=== PATIENT | male | born 1960 | race Caucasian/White ===

== ENCOUNTER 2017-09-20 15:44 | Inpatient (IN) ==
[2017-09-20] MEDS ORDERED: Naloxone 0.4 MG/ML INJ IVP PRN (20:37)
[2017-09-20] MEDS ORDERED: Ondansetron 4 MG/2 ML VIAL IVP PRN (20:46)
[2017-09-20] MEDS ORDERED: Acetaminophen 325 MG TABLET PO PRN (20:46)
[2017-09-20] MEDS ORDERED: Ipratropium/Albuterol Neb 3 ML IH PRN (20:55)
[2017-09-20] MEDS: D5% in 0.45% NACL 1,000 ML IVC SCH (20:56)
[2017-09-20] MEDS: *HR* Morphine 2 MG/ML SYRINGE IVP PRN (20:57)
--- NOTE | 2017-09-20 21:00 | Internal Med History&Physical ---
Date of Encounter: 09/20/17 Time of Encounter: 20:58 Assessment and Plan (1) Abdominal visceral abscess Current visit: No Status: Acute 2 intra-abdominal abscesses, secondary to complicated sigmoid diverticulitis Nothing by mouth, IV fluids, morphine, Invanz IV Surgery consult and interventional radiology consult for possible draining We will try to contact [facility] to arrange a transfer if possible (called [facility], spoke WITH hOSPITALIST Dr Emery, awaiting call from surgeon Dr Dennis) Protonix 40 GI prophylaxis and subcutaneous heparin for DVT prophylaxis the patient will be admitted as inpatient, expected to stay more than 20 times. Full code. Time spent on this admission 40 minutes (2) Tobacco abuse Current visit: Yes Status: Acute Smoking cessation counseling, nicotine patch (3) Leukocytosis Current visit: Yes Status: Acute Qualifiers: Leukocytosis type: unspecified Qualified Code(s): D72.829 - Elevated white blood cell count, unspecified (4) Asthma Current visit: Yes Status: Acute duonebs as needed Qualifiers: Asthma severity: unspecified severity Asthma persistence: unspecified Asthma complication type: uncomplicated Qualified Code(s): J45.909 - Unspecified asthma, uncomplicated Internal Medicine - H&P: HPI Chief complaint: Abdominal pain Admitted From: Emergency Dept History of present illness: Mr. Giraldo is a 57 year old male with a past medical history of tobacco use, recently diagnosed with sigmoid diverticulitis at [facility], she was discharged on 2017 on ciprofloxacin and Flagyl. Unfortunately the patient did not get any better and went to [facility] ER where CT scan was performed showing two intra-abdominal abscesses, 1 next to the proximal sigmoid colon and the other one possibly in the appendix. White blood cell count is 13.7 platelets 453 glucose 109. Patient is complaining of right sided abdominal pain accompanied by nausea and 1 episode of watery diarrhea earlier today. Denies any fevers or other complaints. The patient is requesting to be transferred to [facility] hospital, but at the moment their beds are limited. Past Med Surg Social Fam HX - Past Medical History Medical history: asthma, COPD (non diagnosed), GERD, other (Tobacco use, asthma , right elbow tendinitis, GERD) Psychiatric history: no psych history - Past Surgical History Surgical History: no surgical history - Social History Smoking Status: Current every day smoker Packs per day: 1 pack per day Smokeless Tobacco Status: No Alcohol use: none Drug use: marijuana - Additional Family History Additional family history: Denies any family history Internal Medicine - H&P: Meds Claritin 10 mg PO DAILY 09/10/17 [History] Naproxen 500 mg PO BID 09/10/17 [History] Albuterol Sulfate [Ventolin Hfa] 2 puff IH Q6H 09/20/17 [History] Fluticasone/Salmeterol [Advair 250-50 Diskus] 1 each IH BID 09/20/17 [History] Levofloxacin [Levaquin] 750 mg PO DAILY 09/20/17 [History] Omeprazole 20 mg PO DAILY 09/20/17 [History] metroNIDAZOLE [Flagyl] 500 mg PO TID 09/20/17 [History] 3 Allergy/AdvReac Type Severity Reaction Status Date / Time No Known Allergies Allergy Verified 09/10/17 17:25 All Systems PM: A 10-system review of systems was performed and is negative for pertinent findings except as documented above in the HPI. Review of systems: Abdominal pain, other systems out of the 10 reviewed were negative - Constitutional Vitals: Temp Pulse Resp BP Pulse Ox 98.0 F 64 17 113/69 93 09/20/17 19:40 09/20/17 19:40 09/20/17 19:40 09/20/17 19:40 09/20/17 19:40 General appearance: Present: A&O X 3 - Head Head exam: Present: atraumatic, normocephalic - Eye Eye exam: Present: PERRL, conjuntiva pink, sclera anicteric Pupils: Present: PERRL - Neck Neck exam general surgery: Present: supple, trachea midline. Absent: lymphadenopathy - Respiratory Respiratory exam: Present: CTAB. Absent: accessory muscle use, rales, rhonchi, wheezes - Cardiovascular Cardiovascular exam: Present: RRR, +S1, +S2. Absent: diastolic murmur, gallop, rubs, systolic murmur - GI/Abdominal GI/Abdominal exam: Present: normal bowel sounds, rebound, soft. Absent: distended, tenderness, no peritoneal signs Additional comments: Right lower quadrant tenderness - Extremities Exam Extremities exam: Present: warm, radial pulses palpable and symmetrical. Absent : calf tenderness, cyanotic, pedal edema - Neurological Exam Neurological exam: Present: CN II-XII intact, oriented X3, no focal deficits. Absent: pronater drift, facial droop, speech deficit - Skin Skin exam: Present: dry, intact
[2017-09-20] MEDS: *HR* Heparin 5,000 UNIT/ML VIAL SQ SCH (22:09)
[2017-09-20] MEDS: Ertapenem 1,000 MG in Water for inj. (sterile) 20 ML 10 ML IVP SCH (22:09)
[2017-09-20] MEDS: Pantoprazole 40 MG VIAL IVP SCH (22:10)
[2017-09-21] MEDS: *HR* Morphine 2 MG/ML SYRINGE IVP PRN ×6 (01:34→21:09)
[2017-09-21] MEDS: D5% in 0.45% NACL 1,000 ML IVC SCH ×4 (02:56→22:46)
[2017-09-21] MEDS: *HR* Heparin 5,000 UNIT/ML VIAL SQ SCH ×2 (05:56→16:52)
[2017-09-21 06:50] LABS: Basophils # 0.1 K/mcL (0.0-0.2); Basophils % 0.4 %; Eosinophils # 0.5 K/mcL (0.0-0.6); Eosinophils % 3.8 %; Hematocrit 36.3 % (37.5-50.1); Hemoglobin 11.5 g/dL (12.9-16.9); Immature Granulocytes % 0.5 % (0-4); Lymphocytes # 2.1 K/mcL (0.6-4.6); Mean Corpuscular HGB Conc 31.7 g/dL (31.6-35.5); Mean Corpuscular Hemoglobin 28.2 pg (28.0-33.3); Mean Platelet Volume 9.2 fL (9.4-12.4); Monocytes # 1.4 K/mcL (0.0-1.3); Monocytes % 9.8 %; Neutrophils # 9.8 K/mcL (1.6-8.9); Platelet Count 461 K/mcL (140-400); Red Blood Count 4.08 M/mcL (4.19-5.50); Red Cell Distribution Width 14.1 % (11.5-14.5); Segmented Neutrophils % 70.5 %
[2017-09-21 07:13] LABS: BUN/Creatinine Ratio 11 (6-26); Blood Urea Nitrogen 10 mg/dL (6-20); Calcium 8.1 mg/dL (8.6-10.3); Carbon Dioxide 27 mEq/L (23-29); Chloride 106 mEq/L (98-107); Glucose 125 mg/dL (70-105); Osmolality,Calculated 287 (280-300); Potassium 4.2 mEq/L (3.5-5.1); Sodium 138 mEq/L (136-145); eGFR For African Americans > 60 (> 60); eGFR For Non-African Americans > 60 (> 60)
[2017-09-21] MEDS: Pantoprazole 40 MG VIAL IVP SCH (08:32)
[2017-09-21] MEDS: Nicotine 21 MG PATCH.TD24 TD SCH (08:33)
--- NOTE | 2017-09-21 12:00 | General Surgery Consult Note ---
<Marilin Bonner - Last Filed: 09/21/17 11:58> Date of Encounter: 09/21/17 Time of Encounter: 11:58 History of Present Illness Consult date: 09/21/17 Reason for consult: abdominal pain (RLQ) Requesting physician: Gregory Hernandez History of present illness: Mr. Giraldo is a 57 year old white male recently released from [facility] on 09/17/17 where he was treated for sigmoid diverticulitis with ciprofloxacin and flagyl and told he had an abscess in his abdomen. Past Med Surg Social Fam HX - Past Medical History Medical history: asthma, COPD (non diagnosed), GERD, other (Tobacco use, asthma , right elbow tendinitis, GERD) Psychiatric history: no psych history - Past Surgical History Surgical History: no surgical history - Social History Smoking Status: Current every day smoker Packs per day: 1 pack per day Smokeless Tobacco Status: No Alcohol use: none Drug use: marijuana Medications and Allergies Loratadine [Claritin] 10 mg PO DAILY 09/10/17 [History] Naproxen 500 mg PO BID 09/10/17 [History] Albuterol Sulfate [Ventolin Hfa] 2 puff IH Q6H PRN 09/20/17 [History] Fluticasone/Salmeterol [Advair 250-50 Diskus] 1 puff IH BID 09/20/17 [History] Levofloxacin [Levaquin] 750 mg PO DAILY 09/20/17 [History] Omeprazole 20 mg PO DAILY 09/20/17 [History] metroNIDAZOLE [Flagyl] 500 mg PO TID 09/20/17 [History] 3 Allergy/AdvReac Type Severity Reaction Status Date / Time No Known Allergies Allergy Verified 09/10/17 17:25 Review of Systems All systems PM: A 10-system review of systems was performed and is negative for pertinent findings except as documented above in the HPI. - Constitutional chills, other (no diaphoresis), no fever(s) - Gastrointestinal abdominal pain (RLQ), change in bowel habits (x2 weeks), diarrhea, no constipation, no nausea, no vomiting General Surgery Exam Initial Vital Signs Temp Pulse Resp BP Pulse Ox 97.5 F L 61 16 126/80 96 09/20/17 17:31 09/20/17 17:31 09/20/17 17:31 09/20/17 17:31 09/20/17 17:31 - General physical appearance well developed, well nourished, no distress - Eyes normal ocular movement - Neck no masses - Respiratory normal expansion, normal respiratory effort, clear to auscultation - Cardiovascular Cardiovascular exam: Present: RRR. Absent: murmurs - Abdomen Abdomen general surgery: Present: bowel sounds present Abdominal Tenderness: Present: RLQ - Neurologic Present: CN 2-12 grossly intact - Psychiatric Psychiatric general surgery: Present: A&Ox3, speech is normal, memory intact Exam Initial Vital Signs Temp Pulse Resp BP Pulse Ox 97.5 F L 61 16 126/80 96 09/20/17 17:31 09/20/17 17:31 09/20/17 17:31 09/20/17 17:31 09/20/17 17:31 Results - Labs 09/21/17 05:44 09/21/17 05:44 Abnormal lab results WBC 13.9 K/mcL (4.3-11.1) H 09/21/17 05:44 RBC 4.08 M/mcL (4.19-5.50) L 09/21/17 05:44 Hgb 11.5 g/dL (12.9-16.9) L D 09/21/17 05:44 Hct 36.3 % (37.5-50.1) L 09/21/17 05:44 Plt Count 461 K/mcL (140-400) H 09/21/17 05:44 MPV 9.2 fL (9.4-12.4) L 09/21/17 05:44 Neutrophils # 9.8 K/mcL (1.6-8.9) H 09/21/17 05:44 Monocytes # 1.4 K/mcL (0.0-1.3) H 09/21/17 05:44 Glucose 125 mg/dL (70-105) H 09/21/17 05:44 POC Glucose 135 (58-89) H 09/21/17 11:01 Calcium 8.1 mg/dL (8.6-10.3) L 09/21/17 05:44 Diabetes panel 09/21/17 Range/Units 05:44 Sodium 138 (136-145) mEq/L Potassium 4.2 (3.5-5.1) mEq/L Chloride 106 (98-107) mEq/L Carbon Dioxide 27 (23-29) mEq/L BUN 10 (6-20) mg/dL Creatinine 0.95 (0.70-1.30) mg/dL Glucose 125 H (70-105) mg/dL Calcium 8.1 L (8.6-10.3) mg/dL Calcium panel 09/21/17 Range/Units 05:44 Calcium 8.1 L (8.6-10.3) mg/dL Pituitary panel 09/21/17 Range/Units 05:44 Sodium 138 (136-145) mEq/L Potassium 4.2 (3.5-5.1) mEq/L Chloride 106 (98-107) mEq/L Carbon Dioxide 27 (23-29) mEq/L BUN 10 (6-20) mg/dL Creatinine 0.95 (0.70-1.30) mg/dL Glucose 125 H (70-105) mg/dL Calcium 8.1 L (8.6-10.3) mg/dL Adrenal panel 09/21/17 Range/Units 05:44 Sodium 138 (136-145) mEq/L Potassium 4.2 (3.5-5.1) mEq/L Chloride 106 (98-107) mEq/L Carbon Dioxide 27 (23-29) mEq/L BUN 10 (6-20) mg/dL Creatinine 0.95 (0.70-1.30) mg/dL Glucose 125 H (70-105) mg/dL Calcium 8.1 L (8.6-10.3) mg/dL All other labs normal. Consult Discharge Plan - Plan Referrals: Gisele Arreaga CNP [Primary Care Provider] - Annette Corral DO [Family Provider] - <Qamar Armstrong E - Last Filed: 09/21/17 19:09> Date of Encounter: 09/21/17 Assessment and Plan (1) Perforated diverticulum of large intestine Current Visit: Yes Status: Acute Patient failed outpatient oral antibiotic therapy after being hospitalized the previous week with IV antibiotics. Currently the patient's readmitted on IV antibiotics and seems be doing well. He has localized tenderness in right lower quadrant which is close to the interloop abscess. The abscess was not amenable to drainage. Therefore we will be conservative therapy in form of IV fluids, bowel rest, IV antibiotics. Once the patient has a normal abdominal exam will then begin diet. Likely no surgical intervention during this hospitalization. The patient may require an interval sigmoid resection. We will discuss this with him going forward prior to discharge and follow-up. (2) Abdominal visceral abscess Current Visit: Yes Status: Acute Review of Systems All systems PM: A 10-system review of systems was performed and is negative for pertinent findings except as documented above in the HPI. General Surgery Exam Initial Vital Signs Temp Pulse Resp BP Pulse Ox 97.5 F L 61 16 126/80 96 09/20/17 17:31 09/20/17 17:31 09/20/17 17:31 09/20/17 17:31 09/20/17 17:31 Exam Initial Vital Signs Temp Pulse Resp BP Pulse Ox 97.5 F L 61 16 126/80 96 09/20/17 17:31 09/20/17 17:31 09/20/17 17:31 09/20/17 17:31 09/20/17 17:31 Results - Labs 09/21/17 13:50 09/21/17 05:44 Abnormal lab results WBC 13.9 K/mcL (4.3-11.1) H 09/21/17 05:44 RBC 4.08 M/mcL (4.19-5.50) L 09/21/17 05:44 Hgb 11.6 g/dL (12.9-16.9) L 09/21/17 13:50 Hct 35.6 % (37.5-50.1) L 09/21/17 13:50 Plt Count 461 K/mcL (140-400) H 09/21/17 05:44 MPV 9.2 fL (9.4-12.4) L 09/21/17 05:44 Neutrophils # 9.8 K/mcL (1.6-8.9) H 09/21/17 05:44 Monocytes # 1.4 K/mcL (0.0-1.3) H 09/21/17 05:44 Glucose 125 mg/dL (70-105) H 09/21/17 05:44 POC Glucose 97 (58-89) H 09/21/17 16:35 Calcium 8.1 mg/dL (8.6-10.3) L 09/21/17 05:44 Diabetes panel 09/21/17 Range/Units 05:44 Sodium 138 (136-145) mEq/L Potassium 4.2 (3.5-5.1) mEq/L Chloride 106 (98-107) mEq/L Carbon Dioxide 27 (23-29) mEq/L BUN 10 (6-20) mg/dL Creatinine 0.95 (0.70-1.30) mg/dL Glucose 125 H (70-105) mg/dL Calcium 8.1 L (8.6-10.3) mg/dL Calcium panel 09/21/17 Range/Units 05:44 Calcium 8.1 L (8.6-10.3) mg/dL Pituitary panel 09/21/17 Range/Units 05:44 Sodium 138 (136-145) mEq/L Potassium 4.2 (3.5-5.1) mEq/L Chloride 106 (98-107) mEq/L Carbon Dioxide 27 (23-29) mEq/L BUN 10 (6-20) mg/dL Creatinine 0.95 (0.70-1.30) mg/dL Glucose 125 H (70-105) mg/dL Calcium 8.1 L (8.6-10.3) mg/dL Adrenal panel 09/21/17 Range/Units 05:44 Sodium 138 (136-145) mEq/L Potassium 4.2 (3.5-5.1) mEq/L Chloride 106 (98-107) mEq/L Carbon Dioxide 27 (23-29) mEq/L BUN 10 (6-20) mg/dL Creatinine 0.95 (0.70-1.30) mg/dL Glucose 125 H (70-105) mg/dL Calcium 8.1 L (8.6-10.3) mg/dL All other labs normal.
[2017-09-21 14:37] LABS: Hematocrit 35.6 % (37.5-50.1); Hemoglobin 11.6 g/dL (12.9-16.9)
--- NOTE | 2017-09-21 18:53 | Internal Med Progress Note ---
Date of Encounter: 09/21/17 Time of Encounter: 18:51 - Assessment and plan (1) Abdominal visceral abscess Current Visit: Yes Status: Acute Assessment and plan: Shows improvement with ertapenem. IR evaluated patient and there is too little of fluid to drain. Surgery consulted, recommendations appreciated. Pain currently controlled, continue IV fluids, NPO for now. (2) COPD (chronic obstructive pulmonary disease) Current Visit: Yes Status: Acute Qualifiers: COPD type: unspecified COPD Qualified Code(s): J44.9 - Chronic obstructive pulmonary disease, unspecified - Subjective Interval history: Patient feels better with antibiotics. Denies fevers chills. Pain is at a tolerable state. - Constitutional Vitals: Temp Pulse Resp BP Pulse Ox 99.0 F 93 16 130/76 91 09/21/17 13:57 09/21/17 13:57 09/21/17 13:57 09/21/17 13:57 09/21/17 13:57 General appearance: Present: A&O X 3 - Head Head exam: Present: atraumatic, normocephalic - Eye Eye exam: Present: PERRL, conjuntiva pink, sclera anicteric Pupils: Present: PERRL - Neck Neck exam general surgery: Present: supple, trachea midline. Absent: lymphadenopathy - Respiratory Respiratory exam: Present: CTAB. Absent: accessory muscle use, rales, rhonchi, wheezes - Cardiovascular Cardiovascular exam: Present: RRR, +S1, +S2. Absent: diastolic murmur, gallop, rubs, systolic murmur - GI/Abdominal GI/Abdominal exam: Present: normal bowel sounds, soft, tenderness, no peritoneal signs. Absent: distended - Extremities Exam Extremities exam: Present: warm, radial pulses palpable and symmetrical. Absent : calf tenderness, cyanotic, pedal edema - Neurological Exam Neurological exam: Present: CN II-XII intact, oriented X3, no focal deficits. Absent: pronater drift, facial droop, speech deficit - Skin Skin exam: Present: dry, intact Internal Medicine: Result - Labs CBC & Chem 7: 09/21/17 13:50 09/21/17 05:44 Labs: Short CBC 09/21/17 09/21/17 Range/Units 05:44 13:50 WBC 13.9 H (4.3-11.1) K/mcL Hgb 11.5 L D 11.6 L (12.9-16.9) g/dL Hct 36.3 L 35.6 L (37.5-50.1) % Plt Count 461 H (140-400) K/mcL Neutrophils # 9.8 H (1.6-8.9) K/mcL BMP 09/21/17 05:44 Sodium 138 Potassium 4.2 Chloride 106 Carbon Dioxide 27 BUN 10 Creatinine 0.95 Glucose 125 H Calcium 8.1 L Consult Discharge Plan - Plan Referrals: Gisele Arreaga, MARLEN [Primary Care Provider] - Annette Corral DO [Family Provider] -
[2017-09-21] MEDS: Ertapenem 1,000 MG in Water for inj. (sterile) 20 ML 10 ML IVP SCH (21:09)
[2017-09-22] MEDS: *HR* Morphine 2 MG/ML SYRINGE IVP PRN ×6 (01:18→22:33)
[2017-09-22 05:55] LABS: Basophils # 0.1 K/mcL (0.0-0.2); Basophils % 0.4 %; Eosinophils # 0.6 K/mcL (0.0-0.6); Eosinophils % 4.3 %; Hematocrit 35.3 % (37.5-50.1); Hemoglobin 11.3 g/dL (12.9-16.9); Immature Granulocytes % 0.5 % (0-4); Lymphocytes # 2.1 K/mcL (0.6-4.6); Lymphocytes % 15.2 %; Mean Corpuscular Hemoglobin 28.3 pg (28.0-33.3); Mean Corpuscular Volume 88.3 fL (83.0-100.0); Mean Platelet Volume 9.2 fL (9.4-12.4); Monocytes # 1.6 K/mcL (0.0-1.3); Monocytes % 11.8 %; Neutrophils # 9.2 K/mcL (1.6-8.9); Platelet Count 502 K/mcL (140-400); Red Cell Distribution Width 13.8 % (11.5-14.5); Segmented Neutrophils % 67.8 %
[2017-09-22] MEDS: *HR* Heparin 5,000 UNIT/ML VIAL SQ SCH ×2 (06:17→18:34)
[2017-09-22] MEDS: D5% in 0.45% NACL 1,000 ML IVC SCH ×4 (06:29→20:46)
--- NOTE | 2017-09-22 09:53 | General Surgery Progress Note ---
<Floyd Christian - Last Filed: 09/22/17 12:44> Date of Encounter: 09/22/17 Time of Encounter: 09:51 - Assessment and Plan (1) Perforated diverticulum of large intestine Current Visit: Yes Status: Acute Admit day 2. previously failed treatment with cipro and flagyl during admission at [facility] on 09/17/17. Patient is afebrile, and abdominal pain has improved since yesterday. WBC 13/9 -> 13.6 (today). clinically patient is improving. Will continue to closely monitor and consider draining abscess if patient declines. conservative management for now. - ct ertapenem (day 2) - ct pain management with Rx - serial abd exams - follow temp, WBc closely - npo (2) Tobacco abuse Current Visit: Yes Status: Acute recommended to patient smoking cessation. to be managed outpatient by PCP Subjective Patient reports: feels better, pain is less, flatus, no bowel movement Narrative: patient reports abd pain has decreased since yesterday, but remains 4/10 today. No events overnight, no new complaints. Objective Vital Signs - Last 8 Hours Temp Pulse Resp BP Pulse Ox 09/22/17 08:17 98.0 F 68 18 131/73 93 09/22/17 04:03 98.2 F 68 17 113/66 92 Intake and Output 09/21/17 09/22/17 09/22/17 23:59 07:59 15:59 Intake Total 900 / 900 1000 / 1000 0 / 0 Output Total 625 / 625 200 / 200 500 / 500 Balance 275 / 275 800 / 800 -500 / -500 Intake: IV Fluids 900 / 900 1000 / 1000 D5% And 0.45% Nacl 1000 Ml Bag 900 / 900 1000 / 1000 1,000 ML @ 175 mls/hr IVC . Q5H43M [facility] Rx#:[id number] Oral 0 / 0 0 / 0 Output: Urine 625 / 625 200 / 200 500 / 500 Other: Meal NPO Percent of Meal Consumed 0% Weight 75.8 kg Blood Glucose* 97 119 Patient Weight 09/22/17 23:59 Weight 75.8 kg - General physical appearance moderate distress, moderate pain - Eyes normal ocular movement - ENT normal mucosa, no hearing loss, no congestion - Neck Neck exam: no masses, no venous distension - Respiratory normal expansion, normal respiratory effort wheezing: bilateral (expiratory wheezing diffusely) - Cardiovascular Cardiovascular exam: Present: RRR - Abdomen Abdomen: Present: bowel sounds present, soft, tender - Integumentary no rash, no growths, no abnormal pigmentation - Neurologic normal sensation - Psychiatric oriented to time, oriented to person, oriented to place, speech is normal, memory intact - Labs 09/22/17 05:12 09/21/17 05:44 Consult Discharge Plan - Plan Referrals: Gisele Arreaga, MARLEN [Primary Care Provider] - Annette Corral DO [Family Provider] - <Jarad Cullen - Last Filed: 09/23/17 10:18> Date of Encounter: 09/22/17 Objective Vital Signs - Last 8 Hours Temp Pulse Resp BP Pulse Ox 09/23/17 06:44 97.9 F 69 18 121/77 93 09/23/17 05:14 98.1 F 67 16 120/73 94 Intake and Output 09/22/17 09/23/17 09/23/17 23:59 07:59 15:59 Intake Total 1000 / 1000 1000 / 1000 Output Total 650 / 650 1175 / 1175 Balance 350 / 350 -175 / -175 Intake: IV Fluids 1000 / 1000 1000 / 1000 D5% And 0.45% Nacl 1000 Ml Bag 1000 / 1000 1000 / 1000 1,000 ML @ 175 mls/hr IVC . Q5H43M [facility] Rx#:[id number] Oral 0 / 0 0 / 0 Output: Urine 650 / 650 1175 / 1175 Other: Meal NPO Dinner Weight 75.8 kg Blood Glucose* 119 101 Patient Weight 09/23/17 23:59 Weight 75.8 kg - Labs 09/22/17 05:12 09/21/17 05:44 - Attending Attestation I examined this patient and my medical decision-making was reviewed with the Resident Physician. I agree with the documented findings, disposition and treatment plan as described except to the extent set forth below. The patient was seen and evaluated on morning rounds. His white blood cell count is just over 13,000. He still complains of abdominal pain unchanged from previous. On physical examination there is evidence of involuntary guarding but no rebound as well as diffuse tenderness. We will continue to follow him clinically. If he does not improve he may require repeat CAT scan tomorrow. Jarad Cullen MD FACS
[2017-09-22] MEDS: Nicotine 21 MG PATCH.TD24 TD SCH (10:27)
[2017-09-22] MEDS: Pantoprazole 40 MG VIAL IVP SCH (10:27)
--- NOTE | 2017-09-22 17:25 | Internal Med Progress Note ---
Date of Encounter: 09/22/17 Time of Encounter: 17:23 - Assessment and plan (1) Abdominal visceral abscess Current Visit: Yes Status: Acute Assessment and plan: Shows improvement with ertapenem. IR evaluated patient and there is too little of fluid to drain. Surgery consulted, recommendations appreciated. Pain currently controlled, continue IV fluids, NPO for now. (2) COPD (chronic obstructive pulmonary disease) Current Visit: Yes Status: Acute Qualifiers: COPD type: unspecified COPD Qualified Code(s): J44.9 - Chronic obstructive pulmonary disease, unspecified - Subjective Interval history: at bedside. Patient feels better with antibiotics. Denies fevers chills. - Constitutional Vitals: Temp Pulse Resp BP Pulse Ox 97.8 F 65 18 117/71 94 09/22/17 12:10 09/22/17 12:10 09/22/17 12:10 09/22/17 12:10 09/22/17 12:10 General appearance: Present: A&O X 3 - Head Head exam: Present: atraumatic, normocephalic - Eye Eye exam: Present: PERRL, conjuntiva pink, sclera anicteric Pupils: Present: PERRL - Neck Neck exam general surgery: Present: supple, trachea midline. Absent: lymphadenopathy - Respiratory Respiratory exam: Present: CTAB. Absent: accessory muscle use, rales, rhonchi, wheezes - Cardiovascular Cardiovascular exam: Present: RRR, +S1, +S2. Absent: diastolic murmur, gallop, rubs, systolic murmur - GI/Abdominal GI/Abdominal exam: Present: normal bowel sounds, soft, tenderness, no peritoneal signs. Absent: distended - Extremities Exam Extremities exam: Present: warm, radial pulses palpable and symmetrical. Absent : calf tenderness, cyanotic, pedal edema - Neurological Exam Neurological exam: Present: CN II-XII intact, oriented X3, no focal deficits. Absent: pronater drift, facial droop, speech deficit - Skin Skin exam: Present: dry, intact Internal Medicine: Result - Labs CBC & Chem 7: 09/22/17 05:12 09/21/17 05:44 Labs: Short CBC 09/22/17 Range/Units 05:12 WBC 13.6 H (4.3-11.1) K/mcL Hgb 11.3 L (12.9-16.9) g/dL Hct 35.3 L (37.5-50.1) % Plt Count 502 H (140-400) K/mcL Neutrophils # 9.2 H (1.6-8.9) K/mcL Consult Discharge Plan - Plan Referrals: Gisele Arreaga, MARLEN [Primary Care Provider] - Annette Corral DO [Family Provider] -
[2017-09-22] MEDS: Ertapenem 1,000 MG in Water for inj. (sterile) 20 ML 10 ML IVP SCH (20:47)
[2017-09-23] MEDS: D5% in 0.45% NACL 1,000 ML IVC SCH (02:16)
[2017-09-23] MEDS: *HR* Morphine 2 MG/ML SYRINGE IVP PRN ×5 (02:21→21:40)
[2017-09-23] MEDS: *HR* Heparin 5,000 UNIT/ML VIAL SQ SCH ×2 (06:01→17:12)
[2017-09-23 10:43] LABS: Basophils # 0.1 K/mcL (0.0-0.2); Basophils % 0.5 %; Eosinophils # 0.5 K/mcL (0.0-0.6); Eosinophils % 4.1 %; Immature Granulocytes % 0.5 % (0-4); Lymphocytes # 2.1 K/mcL (0.6-4.6); Mean Corpuscular HGB Conc 32.4 g/dL (31.6-35.5); Mean Corpuscular Hemoglobin 28.3 pg (28.0-33.3); Mean Corpuscular Volume 87.3 fL (83.0-100.0); Mean Platelet Volume 8.9 fL (9.4-12.4); Monocytes # 1.5 K/mcL (0.0-1.3); Monocytes % 12.2 %; Neutrophils # 7.9 K/mcL (1.6-8.9); Platelet Count 582 K/mcL (140-400); Red Blood Count 4.24 M/mcL (4.19-5.50); Red Cell Distribution Width 13.6 % (11.5-14.5); Segmented Neutrophils % 65.7 %
[2017-09-23 11:08] LABS: BUN/Creatinine Ratio 8 (6-26); Blood Urea Nitrogen 7 mg/dL (6-20); Calcium 8.6 mg/dL (8.6-10.3); Carbon Dioxide 25 mEq/L (23-29); Chloride 104 mEq/L (98-107); Glucose 105 mg/dL (70-105); Osmolality,Calculated 280 (280-300); Potassium 3.5 mEq/L (3.5-5.1); Sodium 136 mEq/L (136-145); eGFR For African Americans > 60 (> 60); eGFR For Non-African Americans > 60 (> 60)
[2017-09-23] MEDS: Pantoprazole 40 MG VIAL IVP SCH (11:19)
[2017-09-23] MEDS: Nicotine 21 MG PATCH.TD24 TD SCH (11:19)
--- NOTE | 2017-09-23 15:07 | General Surgery Progress Note ---
<Anay Dixon - Last Filed: 09/23/17 15:05> Date of Encounter: 09/23/17 Time of Encounter: 07:00 - Assessment and Plan (1) Perforated diverticulum of large intestine Current Visit: Yes Status: Acute The patient failed treatment for sigmoid diverticulitis with cipro and flagyl during admission at [facility] on 09/17/[address] [facility] after worsening at home. hemodynamically stable, afebrile, WBC 12.1 improving Abdominal exam improved from yesterday. label fuser tender but no guarding or rebound repeat CT abd ordered to f/u on improvement continue ertapenem day 3 continue pain management serial abdominal exams npo (2) Tobacco abuse Current Visit: Yes Status: Acute patient counseled on smoking cessation Subjective Patient reports: no new complaints, feels better Narrative: no new complaints. Reports improvement of abdominal pain. Objective Vital Signs - Last 8 Hours Temp Pulse Resp BP Pulse Ox 09/23/17 10:37 97.7 F 72 18 134/76 96 Intake and Output 09/22/17 09/23/17 09/23/17 23:59 07:59 15:59 Intake Total 1000 / 1000 1000 / 1000 Output Total 650 / 650 1175 / 1175 300 / 300 Balance 350 / 350 -175 / -175 -300 / -300 Intake: IV Fluids 1000 / 1000 1000 / 1000 D5% And 0.45% Nacl 1000 Ml Bag 1000 / 1000 1000 / 1000 1,000 ML @ 175 mls/hr IVC . Q5H43M [facility] Rx#:[id number] Oral 0 / 0 0 / 0 Output: Urine 650 / 650 1175 / 1175 300 / 300 Other: Meal NPO Dinner Weight 75.8 kg Blood Glucose* 119 101 Patient Weight 09/23/17 23:59 Weight 75.8 kg - General physical appearance well developed, well nourished, no distress - Eyes normal ocular movement - ENT normal nares - Respiratory normal expansion, normal respiratory effort, clear to auscultation - Cardiovascular Cardiovascular exam: Present: RRR - Abdomen Abdomen: Present: bowel sounds present, soft, tender. Absent: guarding, rebound - Integumentary no abnormal pigmentation - Neurologic CN 2-12 grossly intact - Psychiatric oriented to time, oriented to person, oriented to place - Labs 09/23/17 10:14 09/23/17 10:14 Diabetes panel 09/23/17 Range/Units 10:14 Sodium 136 (136-145) mEq/L Potassium 3.5 (3.5-5.1) mEq/L Chloride 104 (98-107) mEq/L Carbon Dioxide 25 (23-29) mEq/L BUN 7 (6-20) mg/dL Creatinine 0.91 (0.70-1.30) mg/dL Glucose 105 (70-105) mg/dL Calcium 8.6 (8.6-10.3) mg/dL Calcium panel 09/23/17 Range/Units 10:14 Calcium 8.6 (8.6-10.3) mg/dL Pituitary panel 09/23/17 Range/Units 10:14 Sodium 136 (136-145) mEq/L Potassium 3.5 (3.5-5.1) mEq/L Chloride 104 (98-107) mEq/L Carbon Dioxide 25 (23-29) mEq/L BUN 7 (6-20) mg/dL Creatinine 0.91 (0.70-1.30) mg/dL Glucose 105 (70-105) mg/dL Calcium 8.6 (8.6-10.3) mg/dL Adrenal panel 09/23/17 Range/Units 10:14 Sodium 136 (136-145) mEq/L Potassium 3.5 (3.5-5.1) mEq/L Chloride 104 (98-107) mEq/L Carbon Dioxide 25 (23-29) mEq/L BUN 7 (6-20) mg/dL Creatinine 0.91 (0.70-1.30) mg/dL Glucose 105 (70-105) mg/dL Calcium 8.6 (8.6-10.3) mg/dL Consult Discharge Plan - Plan Referrals: Gisele Arreaga, MARLEN [Primary Care Provider] - Annette Corral DO [Family Provider] - <Jarad Cullen - Last Filed: 09/23/17 17:59> Date of Encounter: 09/23/17 Objective Vital Signs - Last 8 Hours Temp Pulse Resp BP Pulse Ox 09/23/17 16:35 98.0 F 83 18 143/80 92 09/23/17 10:37 97.7 F 72 18 134/76 96 Intake and Output 09/23/17 09/23/17 09/23/17 07:59 15:59 23:59 Intake Total 1000 / 1000 0 / 0 Output Total 1175 / 1175 300 / 300 500 / 500 Balance -175 / -175 -300 / -300 -500 / -500 Intake: IV Fluids 1000 / 1000 D5% And 0.45% Nacl 1000 Ml Bag 1000 / 1000 1,000 ML @ 175 mls/hr IVC . Q5H43M [facility] Rx#:[id number] Oral 0 / 0 0 / 0 Output: Urine 1175 / 1175 300 / 300 500 / 500 Other: Weight 75.8 kg Blood Glucose* 101 84 Patient Weight 09/23/17 23:59 Weight 75.8 kg - Labs 09/23/17 10:14 09/23/17 10:14 Diabetes panel 09/23/17 Range/Units 10:14 Sodium 136 (136-145) mEq/L Potassium 3.5 (3.5-5.1) mEq/L Chloride 104 (98-107) mEq/L Carbon Dioxide 25 (23-29) mEq/L BUN 7 (6-20) mg/dL Creatinine 0.91 (0.70-1.30) mg/dL Glucose 105 (70-105) mg/dL Calcium 8.6 (8.6-10.3) mg/dL Calcium panel 09/23/17 Range/Units 10:14 Calcium 8.6 (8.6-10.3) mg/dL Pituitary panel 09/23/17 Range/Units 10:14 Sodium 136 (136-145) mEq/L Potassium 3.5 (3.5-5.1) mEq/L Chloride 104 (98-107) mEq/L Carbon Dioxide 25 (23-29) mEq/L BUN 7 (6-20) mg/dL Creatinine 0.91 (0.70-1.30) mg/dL Glucose 105 (70-105) mg/dL Calcium 8.6 (8.6-10.3) mg/dL Adrenal panel 09/23/17 Range/Units 10:14 Sodium 136 (136-145) mEq/L Potassium 3.5 (3.5-5.1) mEq/L Chloride 104 (98-107) mEq/L Carbon Dioxide 25 (23-29) mEq/L BUN 7 (6-20) mg/dL Creatinine 0.91 (0.70-1.30) mg/dL Glucose 105 (70-105) mg/dL Calcium 8.6 (8.6-10.3) mg/dL - Attending Attestation I examined this patient and my medical decision-making was reviewed with the Resident Physician. I agree with the documented findings, disposition and treatment plan as described except to the extent set forth below. The patient is seen in evaluated with resident on morning rounds. He appears to have persistent abdominal pain. I would expect that this should have improved by now in his overall clinical course. I would like to repeat his CAT scan to see if a discrete abscess has developed. We will plan CAT scan of the abdomen and pelvis with GI contrast and IV contrast later today Jarad Cullen MD FACS
--- NOTE | 2017-09-23 16:08 | Internal Med Progress Note ---
Date of Encounter: 09/23/17 Time of Encounter: 16:06 - Assessment and plan (1) Abdominal visceral abscess Current Visit: Yes Status: Acute Assessment and plan: Started on ertapenem on admission. IR evaluated patient and there is too little of fluid to drain. Surgery consulted, recommendations appreciated. Pain currently controlled, continue IV fluids, NPO. Discussed case with Dr. Dixon, a repeat CT of abdomen and pelvis will be ordered to monitor for improvement. Continue supportive care. (2) COPD (chronic obstructive pulmonary disease) Current Visit: Yes Status: Acute Qualifiers: COPD type: unspecified COPD Qualified Code(s): J44.9 - Chronic obstructive pulmonary disease, unspecified - Subjective Interval history: No complaints, no acute events. Denies abdominal pain at rest, fevers/chills, n /v, diaphoresis. - Constitutional Vitals: Temp Pulse Resp BP Pulse Ox 97.7 F 72 18 134/76 96 09/23/17 10:37 09/23/17 10:37 09/23/17 10:37 09/23/17 10:37 09/23/17 10:37 Exam: Gen: NAD, AAOx3 CVS: RRR Lungs: CTAB Abdomen: soft, +TTP periumbilical region, no rebound tenderness, no guarding, non-distended, normal bowel sounds. Ext: no edema, no cyanosis. Internal Medicine: Result - Labs CBC & Chem 7: 09/23/17 10:14 09/23/17 10:14 Labs: Short CBC 09/23/17 Range/Units 10:14 WBC 12.1 H (4.3-11.1) K/mcL Hgb 12.0 L (12.9-16.9) g/dL Hct 37.0 L (37.5-50.1) % Plt Count 582 H (140-400) K/mcL Neutrophils # 7.9 (1.6-8.9) K/mcL BMP 09/23/17 10:14 Sodium 136 Potassium 3.5 Chloride 104 Carbon Dioxide 25 BUN 7 Creatinine 0.91 Glucose 105 Calcium 8.6 Consult Discharge Plan - Plan Referrals: Gisele Arreaga, MARLEN [Primary Care Provider] - Annette Corral DO [Family Provider] -
[2017-09-23] MEDS: Ertapenem 1,000 MG in Water for inj. (sterile) 20 ML 10 ML IVP SCH (21:28)
[2017-09-24] MEDS: *HR* Morphine 2 MG/ML SYRINGE IVP PRN ×5 (04:03→23:10)
[2017-09-24 04:51] LABS: Basophils # 0.1 K/mcL (0.0-0.2); Basophils % 0.4 %; Eosinophils # 0.4 K/mcL (0.0-0.6); Hematocrit 36.4 % (37.5-50.1); Hemoglobin 11.7 g/dL (12.9-16.9); Immature Granulocytes % 0.7 % (0-4); Lymphocytes # 1.8 K/mcL (0.6-4.6); Lymphocytes % 12.9 %; Mean Corpuscular HGB Conc 32.1 g/dL (31.6-35.5); Mean Corpuscular Hemoglobin 27.9 pg (28.0-33.3); Mean Corpuscular Volume 86.7 fL (83.0-100.0); Mean Platelet Volume 8.8 fL (9.4-12.4); Monocytes # 1.8 K/mcL (0.0-1.3); Monocytes % 12.6 %; Neutrophils # 9.7 K/mcL (1.6-8.9); Platelet Count 665 K/mcL (140-400); Red Cell Distribution Width 13.5 % (11.5-14.5); Segmented Neutrophils % 70.4 %
[2017-09-24 05:04] LABS: BUN/Creatinine Ratio 9 (6-26); Blood Urea Nitrogen 9 mg/dL (6-20); Calcium 8.5 mg/dL (8.6-10.3); Carbon Dioxide 25 mEq/L (23-29); Chloride 102 mEq/L (98-107); Glucose 72 mg/dL (70-105); Osmolality,Calculated 277 (280-300); Potassium 3.5 mEq/L (3.5-5.1); Sodium 135 mEq/L (136-145); eGFR For African Americans > 60 (> 60); eGFR For Non-African Americans > 60 (> 60)
[2017-09-24] MEDS: *HR* Heparin 5,000 UNIT/ML VIAL SQ SCH ×2 (05:38→19:45)
[2017-09-24] MEDS: Pantoprazole 40 MG VIAL IVP SCH (09:10)
[2017-09-24] MEDS: Nicotine 21 MG PATCH.TD24 TD SCH (09:12)
[2017-09-24] MEDS ORDERED: Vancomycin 1,250 MG in D5% in Water 250 ML IVPB SCH (10:00)
--- NOTE | 2017-09-24 11:17 | General Surgery Progress Note ---
Date of Encounter: 09/24/17 Time of Encounter: 10:45 - Assessment and Plan (1) Perforated diverticulum of large intestine Current Visit: Yes Status: Acute Patient with significant clinical improvement Clear liquid diet today IV fluids- decreased to 75ml/hour IV antibiotics-Ertapenem and Vancomycin (per hospitalist) Supportive care and pain control Increase activities as tolerated IS every 1 hour while awake PPI therapy daily Surgery will continue to follow and assess progress No urgent surgical intervention at this time, will continue with conservative measures as long as the patient is improving Repeat am labs CT complete 09/23/17 shows multiple small abscess collections not amenable to drainage (decreasing in size); RLL consolidation concerning for pneumonia (2) DVT prophylaxis Current Visit: Yes Status: Acute Heparin 5,000 units SQ twice daily for DVT prophylaxis Activity- ambulate hallways TID with assistance Subjective Patient reports: no new complaints, feels better, still having pain, pain is less, voiding w/o difficulty, flatus, bowel movement, diarrhea, afebrile Objective Vital Signs - Last 8 Hours Temp Pulse Resp BP Pulse Ox 09/24/17 09:18 92 09/24/17 04:49 98.7 F 76 14 115/72 92 Intake and Output 09/23/17 09/24/17 09/24/17 23:59 07:59 15:59 Intake Total 1000 / 1000 0 / 0 Output Total 725 / 725 650 / 650 Balance -715 / -715 350 / 350 0 / 0 Intake: IV Fluids 1000 / 1000 0.45% Sodium Chloride 1000 Ml 1000 / 1000 1000 Ml 1,000 ML @ 110 mls/hr IVC .Q9H6M [facility] Rx#:[id number] INVanz 1,000 MG In Water for inj. (sterile) 10 ML @ 200 mls/ hr IVP HS [facility] Rx#:[id number] Oral 0 / 0 0 / 0 0 / 0 Output: Urine 725 / 725 650 / 650 Other: Meal npo NPO Percent of Meal Consumed 0% Weight 75.3 kg Blood Glucose* 79 71 Patient Weight 09/24/17 23:59 Weight 75.3 kg - General physical appearance well developed, well nourished, no distress - Eyes normal ocular movement - ENT normal mucosa, atraumatic, normocephalic - Neck Neck exam: trachea midline - Respiratory normal respiratory effort, clear to auscultation - Cardiovascular Cardiovascular exam: Present: RRR - Abdomen Abdomen: Present: bowel sounds present, soft, tender (significantly improved) Abdominal Tenderness: RLQ, suprapubic - Integumentary no rash, no growths, no abnormal pigmentation - Neurologic CN 2-12 grossly intact - Psychiatric oriented to time, oriented to person, oriented to place, speech is normal, memory intact - Labs 09/24/17 04:13 09/24/17 04:13 Diabetes panel 09/24/17 Range/Units 04:13 Sodium 135 L (136-145) mEq/L Potassium 3.5 (3.5-5.1) mEq/L Chloride 102 (98-107) mEq/L Carbon Dioxide 25 (23-29) mEq/L BUN 9 (6-20) mg/dL Creatinine 0.95 (0.70-1.30) mg/dL Glucose 72 (70-105) mg/dL Calcium 8.5 L (8.6-10.3) mg/dL Calcium panel 09/24/17 Range/Units 04:13 Calcium 8.5 L (8.6-10.3) mg/dL Pituitary panel 09/24/17 Range/Units 04:13 Sodium 135 L (136-145) mEq/L Potassium 3.5 (3.5-5.1) mEq/L Chloride 102 (98-107) mEq/L Carbon Dioxide 25 (23-29) mEq/L BUN 9 (6-20) mg/dL Creatinine 0.95 (0.70-1.30) mg/dL Glucose 72 (70-105) mg/dL Calcium 8.5 L (8.6-10.3) mg/dL Adrenal panel 09/24/17 Range/Units 04:13 Sodium 135 L (136-145) mEq/L Potassium 3.5 (3.5-5.1) mEq/L Chloride 102 (98-107) mEq/L Carbon Dioxide 25 (23-29) mEq/L BUN 9 (6-20) mg/dL Creatinine 0.95 (0.70-1.30) mg/dL Glucose 72 (70-105) mg/dL Calcium 8.5 L (8.6-10.3) mg/dL Consult Discharge Plan - Plan Referrals: Gisele Arreaga, MARLEN [Primary Care Provider] - Annette Corral DO [Family Provider] - - Attending Attestation For this encounter, I have reviewed the [employer] or PA documentation, treatment plan, and medical decision making; and I have had face to face time with this patient.
[2017-09-24] MEDS: Vancomycin 1,250 MG in D5% in Water 250 ML IVPB SCH ×2 (11:54→23:10)
--- NOTE | 2017-09-24 18:16 | Internal Med Progress Note ---
Date of Encounter: 09/24/17 Time of Encounter: 18:14 - Assessment and plan (1) Abdominal visceral abscess Current Visit: Yes Status: Acute Assessment and plan: Started on ertapenem on admission. IR evaluated patient and there is too little of fluid to drain. Surgery consulted, recommendations appreciated. Pain currently controlled, continue IV fluids, NPO. Discussed case with Dr. Dixon, a repeat CT of abdomen and pelvis will be ordered to monitor for improvement. Continue supportive care. (2) Right lower lobe pneumonia Current Visit: Yes Status: Acute Assessment and plan: Currently on ertapenem, will add vancomycin for MRSA coverage. Follow-up 2 view chest x-ray, sputum cultures, urine antigens. Qualifiers: Pneumonia type: due to unspecified organism Qualified Code(s): J18.1 - Lobar pneumonia, unspecified organism (3) COPD (chronic obstructive pulmonary disease) Current Visit: Yes Status: Acute Assessment and plan: Duo neb treatments as needed. No acute exacerbation. Will treat early pneumonia empirically to prevent exacerbation. Qualifiers: COPD type: unspecified COPD Qualified Code(s): J44.9 - Chronic obstructive pulmonary disease, unspecified - Subjective Interval history: No complaints, no acute events. Denies abdominal pain at rest, fevers/chills, n /v, diaphoresis. - Constitutional Vitals: Temp Pulse Resp BP Pulse Ox 98.3 F 70 16 130/76 95 09/24/17 15:29 09/24/17 15:29 09/24/17 15:29 09/24/17 15:29 09/24/17 15:29 General appearance: Present: A&O X 3 Exam: Gen: NAD, AAOx3 CVS: RRR Lungs: good aeration in all lung laurent, course breath sounds, no w/r/r Abd: soft, mild TTP, normal bowel sounds Ext: no cyanosis, no edema. Internal Medicine: Result - Labs CBC & Chem 7: 09/24/17 04:13 09/24/17 04:13 Labs: Short CBC 09/24/17 Range/Units 04:13 WBC 13.9 H (4.3-11.1) K/mcL Hgb 11.7 L (12.9-16.9) g/dL Hct 36.4 L (37.5-50.1) % Plt Count 665 H (140-400) K/mcL Neutrophils # 9.7 H (1.6-8.9) K/mcL BMP 09/24/17 04:13 Sodium 135 L Potassium 3.5 Chloride 102 Carbon Dioxide 25 BUN 9 Creatinine 0.95 Glucose 72 Calcium 8.5 L - Impressions Impressions Chest X-Ray 09/24/17 09:17 IMPRESSION: 1. Mild right greater than left bibasilar airspace opacities and trace right pleural effusion. In the appropriate clinical setting pneumonia not excluded. 2. Nonspecific bilateral upper lobe nodular opacities measuring up to 11 mm on the left. Recommend further evaluation with CT chest. D/ / Shorty Ledezma MD / Shorty Ledezma MD Interpreting Provider: Shorty Ledezma MD Consult Discharge Plan - Plan Referrals: Gisele Arreaga CNP [Primary Care Provider] - Annette Corral DO [Family Provider] -
[2017-09-24] MEDS: Ertapenem 1,000 MG in Water for inj. (sterile) 20 ML 10 ML IVP SCH (20:09)
[2017-09-24] MEDS ORDERED: Budesonide/Formoterol 80/4.5 MDI IH SCH (22:00)
[2017-09-25] MEDS: *HR* Morphine 2 MG/ML SYRINGE IVP PRN ×6 (02:10→22:27)
[2017-09-25] MEDS: *HR* Heparin 5,000 UNIT/ML VIAL SQ SCH ×2 (05:46→17:23)
[2017-09-25 07:26] LABS: Basophils # 0.1 K/mcL (0.0-0.2); Basophils % 0.6 %; Eosinophils # 0.4 K/mcL (0.0-0.6); Eosinophils % 3.3 %; Hematocrit 35.5 % (37.5-50.1); Hemoglobin 11.7 g/dL (12.9-16.9); Immature Granulocytes % 0.5 % (0-4); Immature Platelets 1.8 % (1.1-6.1); Lymphocytes # 2.7 K/mcL (0.6-4.6); Mean Corpuscular Hemoglobin 28.4 pg (28.0-33.3); Mean Corpuscular Volume 86.2 fL (83.0-100.0); Mean Platelet Volume 8.8 fL (9.4-12.4); Monocytes # 1.9 K/mcL (0.0-1.3); Neutrophils # 7.2 K/mcL (1.6-8.9); Platelet Count 743 K/mcL (140-400); Red Blood Count 4.12 M/mcL (4.19-5.50); Red Cell Distribution Width 13.4 % (11.5-14.5); Segmented Neutrophils % 58.6 %
[2017-09-25 07:42] LABS: BUN/Creatinine Ratio 7 (6-26); Blood Urea Nitrogen 6 mg/dL (6-20); Calcium 8.3 mg/dL (8.6-10.3); Carbon Dioxide 28 mEq/L (23-29); Chloride 101 mEq/L (98-107); Glucose 94 mg/dL (70-105); Osmolality,Calculated 281 (280-300); Potassium 3.3 mEq/L (3.5-5.1); Sodium 137 mEq/L (136-145); eGFR For African Americans > 60 (> 60); eGFR For Non-African Americans > 60 (> 60)
[2017-09-25] MEDS ORDERED: Patient Taking Own Medication 1 EACH PO SCH (09:00)
[2017-09-25] MEDS: Nicotine 21 MG PATCH.TD24 TD SCH (09:58)
[2017-09-25] MEDS ORDERED: (ADVAIR 250/50) PO SCH (10:00)
[2017-09-25] MEDS: Pantoprazole 40 MG VIAL IVP SCH (10:03)
[2017-09-25] MEDS: Vancomycin 1,250 MG in D5% in Water 250 ML IVPB SCH ×2 (11:42→22:27)
--- NOTE | 2017-09-25 12:13 | General Surgery Progress Note ---
Date of Encounter: 09/25/17 Time of Encounter: 12:00 - Assessment and Plan (1) Perforated diverticulum of large intestine Current Visit: Yes Status: Acute Patient feels about the same as yesterday Continue clear liquid diet IV fluids- 75ml/hour IV antibiotics-Ertapenem and Vancomycin (per hospitalist) Supportive care and pain control Increase activities as tolerated IS every 1 hour while awake PPI therapy daily Surgery will continue to follow and assess progress No urgent surgical intervention at this time, will continue with conservative measures as long as the patient is improving Repeat am labs CT complete 09/23/17 shows multiple small abscess collections not amenable to drainage (decreasing in size); RLL consolidation concerning for pneumonia (2) DVT prophylaxis Current Visit: Yes Status: Acute Heparin 5,000 units SQ twice daily for DVT prophylaxis Activity- ambulate hallways TID with assistance Subjective Patient reports: no new complaints, still having pain (same as yesterday (right sided)), tolerating liquids well, voiding w/o difficulty, flatus, afebrile Objective Vital Signs - Last 8 Hours Temp Pulse Resp BP Pulse Ox 09/25/17 10:08 92 09/25/17 09:59 97.5 F L 89 16 110/63 92 09/25/17 06:26 98.1 F 60 16 110/71 90 09/25/17 04:35 98.1 F 67 16 118/77 91 Intake and Output 09/24/17 09/25/17 09/25/17 23:59 07:59 15:59 Intake Total 260 / 260 1250 / 1250 580 / 580 Output Total 1225 / 1225 950 / 950 500 / 500 Balance -965 / -965 300 / 300 80 / 80 Intake: IV Fluids 260 / 260 1250 / 1250 0.45% Sodium Chloride 1000 Ml 1000 / 1000 1000 Ml 1,000 ML @ 75 mls/hr IVC .[id number] [facility] Rx#:[id number] INVanz 1,000 MG In Water for 10 10 inj. (sterile) 10 ML @ 200 mls/ hr IVP HS [facility] Rx#:[id number] Vancocin 1,250 MG In Dextrose 5 250 / 250 250 / 250 % 250 ML @ 166.67 mls/hr IVPB Q12H [facility] Rx#:[id number] Oral 580 / 580 Output: Urine 1225 / 1225 950 / 950 500 / 500 Other: # Bowel Movements 0 0 - General physical appearance well developed, well nourished, no distress - Eyes normal ocular movement - ENT normal mucosa, atraumatic, normocephalic - Neck Neck exam: trachea midline - Respiratory normal respiratory effort, clear to auscultation - Cardiovascular Cardiovascular exam: Present: RRR - Abdomen Abdomen: Present: bowel sounds present, soft, tender Abdominal Tenderness: RLQ, suprapubic - Integumentary no rash, no growths, no abnormal pigmentation - Neurologic CN 2-12 grossly intact - Psychiatric oriented to time, oriented to person, oriented to place, speech is normal, memory intact - Labs 09/25/17 06:35 09/25/17 06:35 Diabetes panel 09/25/17 Range/Units 06:35 Sodium 137 (136-145) mEq/L Potassium 3.3 L (3.5-5.1) mEq/L Chloride 101 (98-107) mEq/L Carbon Dioxide 28 (23-29) mEq/L BUN 6 (6-20) mg/dL Creatinine 0.85 (0.70-1.30) mg/dL Glucose 94 (70-105) mg/dL Calcium 8.3 L (8.6-10.3) mg/dL Calcium panel 09/25/17 Range/Units 06:35 Calcium 8.3 L (8.6-10.3) mg/dL Pituitary panel 09/25/17 Range/Units 06:35 Sodium 137 (136-145) mEq/L Potassium 3.3 L (3.5-5.1) mEq/L Chloride 101 (98-107) mEq/L Carbon Dioxide 28 (23-29) mEq/L BUN 6 (6-20) mg/dL Creatinine 0.85 (0.70-1.30) mg/dL Glucose 94 (70-105) mg/dL Calcium 8.3 L (8.6-10.3) mg/dL Adrenal panel 09/25/17 Range/Units 06:35 Sodium 137 (136-145) mEq/L Potassium 3.3 L (3.5-5.1) mEq/L Chloride 101 (98-107) mEq/L Carbon Dioxide 28 (23-29) mEq/L BUN 6 (6-20) mg/dL Creatinine 0.85 (0.70-1.30) mg/dL Glucose 94 (70-105) mg/dL Calcium 8.3 L (8.6-10.3) mg/dL Consult Discharge Plan - Plan Referrals: Gisele Arreaga CNP [Primary Care Provider] - Annette Corral DO [Family Provider] - - Attending Attestation For this encounter, I have reviewed the [employer] or PA documentation, treatment plan, and medical decision making; and I have had face to face time with this patient.
--- NOTE | 2017-09-25 16:51 | Internal Med Progress Note ---
Date of Encounter: 09/25/17 Time of Encounter: 11:15 - Assessment and plan (1) Right lower lobe pneumonia Current Visit: Yes Status: Suspected Assessment and plan: On vancomycin and ertapenem. Qualifiers: Pneumonia type: due to methicillin-resistant Staphylococcus aureus (MRSA) Qualified Code(s): J15.212 - Pneumonia due to Methicillin resistant Staphylococcus aureus (2) Perforated diverticulum of large intestine Current Visit: Yes Status: Acute Assessment and plan: Patient with multiple small abscess collections not amenable to drainage related to perforated diverticulum. Continue current management with IV antibiotics IV fluids and clear liquid diet as tolerated. Surgery following. No urgent surgical indication at this time. Leukocytosis improving. (3) COPD (chronic obstructive pulmonary disease) Current Visit: Yes Status: Acute Assessment and plan: Not in acute exacerbation. Continue bronchodilators as needed. Qualifiers: COPD type: unspecified COPD Qualified Code(s): J44.9 - Chronic obstructive pulmonary disease, unspecified - Subjective Interval history: Patient is awake and alert. Continues to have right lower quadrant abdominal pain although it is more controlled compared to yesterday. Tolerating clear liquid diet. - Constitutional Vitals: Temp Pulse Resp BP Pulse Ox 98.2 F 72 16 111/72 90 09/25/17 14:24 09/25/17 14:24 09/25/17 14:24 09/25/17 14:24 09/25/17 14:24 General appearance: Present: cooperative, A&O X 3, answers questions appropriately - Respiratory Respiratory exam: Present: CTAB. Absent: accessory muscle use, rales, rhonchi, wheezes - Cardiovascular Cardiovascular exam: Present: RRR, +S1, +S2. Absent: diastolic murmur, gallop, rubs, systolic murmur - GI/Abdominal GI/Abdominal exam: Present: normal bowel sounds, soft, tenderness (Right lower quadrant), no peritoneal signs. Absent: distended - Extremities Exam Extremities exam: Present: warm, radial pulses palpable and symmetrical. Absent : calf tenderness, cyanotic, pedal edema - Neurological Exam Neurological exam: Present: alert, oriented X3, no focal deficits. Absent: facial droop, speech deficit - Skin Skin exam: Present: dry, intact Internal Medicine: Result - Labs CBC & Chem 7: 09/25/17 06:35 09/25/17 06:35 Labs: Short CBC 09/25/17 Range/Units 06:35 WBC 12.3 H (4.3-11.1) K/mcL Hgb 11.7 L (12.9-16.9) g/dL Hct 35.5 L (37.5-50.1) % Plt Count 743 H (140-400) K/mcL Neutrophils # 7.2 (1.6-8.9) K/mcL BMP 09/25/17 06:35 Sodium 137 Potassium 3.3 L Chloride 101 Carbon Dioxide 28 BUN 6 Creatinine 0.85 Glucose 94 Calcium 8.3 L - Impressions Impressions Chest X-Ray 09/24/17 09:17 IMPRESSION: 1. Mild right greater than left bibasilar airspace opacities and trace right pleural effusion. In the appropriate clinical setting pneumonia not excluded. 2. Nonspecific bilateral upper lobe nodular opacities measuring up to 11 mm on the left. Recommend further evaluation with CT chest. D/ / Shorty Ledezma MD / Shorty Ledezma MD Interpreting Provider: Shorty Ledezma MD Consult Discharge Plan - Plan Referrals: Gisele Arreaga CNP [Primary Care Provider] - Annette Corral DO [Family Provider] -
[2017-09-25] MEDS: Ertapenem 1,000 MG in Water for inj. (sterile) 20 ML 10 ML IVP SCH (22:26)
[2017-09-25] MEDS: (ADVAIR 250/50) PO SCH (22:30)
[2017-09-26] MEDS: *HR* Heparin 5,000 UNIT/ML VIAL SQ SCH ×2 (06:03→18:00)
[2017-09-26 07:46] LABS: BUN/Creatinine Ratio 6 (6-26); Blood Urea Nitrogen 6 mg/dL (6-20); Calcium 8.6 mg/dL (8.6-10.3); Carbon Dioxide 30 mEq/L (23-29); Chloride 103 mEq/L (98-107); Potassium 3.5 mEq/L (3.5-5.1); Sodium 139 mEq/L (136-145); eGFR For African Americans > 60 (> 60); eGFR For Non-African Americans > 60 (> 60)
[2017-09-26] MEDS: (ADVAIR 250/50) PO SCH ×2 (07:49→21:14)
[2017-09-26] MEDS: Pantoprazole 40 MG VIAL IVP SCH (07:49)
[2017-09-26] MEDS: Nicotine 21 MG PATCH.TD24 TD SCH (07:49)
[2017-09-26] MEDS: *HR* Morphine 2 MG/ML SYRINGE IVP PRN ×3 (07:50→21:58)
[2017-09-26 08:27] LABS: Basophils # 0.1 K/mcL (0.0-0.2); Basophils % 0.8 %; Eosinophils # 0.3 K/mcL (0.0-0.6); Hematocrit 37.4 % (37.5-50.1); Immature Granulocytes % 0.4 % (0-4); Lymphocytes # 2.6 K/mcL (0.6-4.6); Lymphocytes % 22.6 %; Mean Corpuscular HGB Conc 32.1 g/dL (31.6-35.5); Mean Corpuscular Hemoglobin 27.5 pg (28.0-33.3); Mean Corpuscular Volume 85.8 fL (83.0-100.0); Monocytes # 1.5 K/mcL (0.0-1.3); Monocytes % 13.5 %; Neutrophils # 6.8 K/mcL (1.6-8.9); Platelet Count 747 K/mcL (140-400); Red Blood Count 4.36 M/mcL (4.19-5.50); Red Cell Distribution Width 13.6 % (11.5-14.5); Segmented Neutrophils % 59.7 %
[2017-09-26 08:34] LABS: Glucose 107 mg/dL (70-105); Osmolality,Calculated 286 (280-300)
[2017-09-26] MEDS: Vancomycin 1,250 MG in D5% in Water 250 ML IVPB SCH ×2 (08:58→21:58)
--- NOTE | 2017-09-26 09:03 | General Surgery Progress Note ---
Date of Encounter: 09/26/17 Time of Encounter: 08:30 - Assessment and Plan (1) Perforated diverticulum of large intestine Current Visit: Yes Status: Acute CT abdomen/pelvis w IV and PO contrast 09/23/17--Right sided collections in pelvis (decreased in size); RLL consolidation concerning for pneumonia. White count continues to trend downward (11.4). Afebrile and vital signs stable. Tolerating clear liquids well. - No urgent surgical intervention at this time--continue conservative measures as long as the patient is improving - Pain control, supportive care - IV antibiotics--ertapenem and vancomycin, per primary team - Continue IVF @ 75mL/hr - Full liquid diet with clear Ensure BID - Ambulation TID and hourly incentive spirometry while awake - Will continue to follow and assess progress - Protonix 40mg IV daily - Monitor AM labs (2) DVT prophylaxis Current Visit: Yes Status: Acute Heparin 5,000 units SubQ BID Ambulate hallways with assistance 3x daily Subjective Patient reports: no new complaints, feels better, still having pain (RLQ), pain is less, tolerating liquids well, flatus, no bowel movement Narrative: Denies fever, chills, nausea, chest pain, difficulty breathing. Reports ambulating hallways yesterday and plans to ambulate hallways again today. Objective Vital Signs - Last 8 Hours Temp Pulse Resp BP Pulse Ox 09/26/17 06:32 98.0 F 71 14 131/73 92 09/26/17 03:22 98.4 F 71 14 113/65 91 Intake and Output 09/25/17 09/26/17 09/26/17 23:59 07:59 15:59 Intake Total 1370 / 1370 1350 / 1350 Output Total 100 / 100 1225 / 1225 Balance 1270 / 1270 125 / 125 Intake: IV Fluids 1010 / 1010 1250 / 1250 0.45% Sodium Chloride 1000 Ml 1000 / 1000 1000 / 1000 1000 Ml 1,000 ML @ 75 mls/hr IVC .[id number] [facility] Rx#:[id number] INVanz 1,000 MG In Water for inj. (sterile) 10 ML @ 200 mls/ hr IVP HS [facility] Rx#:[id number] Vancocin 1,250 MG In Dextrose 5 250 / 250 % 250 ML @ 166.67 mls/hr IVPB Q12H [facility] Rx#:[id number] Oral 360 / 360 100 / 100 Output: Urine 100 / 100 1225 / 1225 Other: Weight 75.311 kg Patient Weight 09/26/17 23:59 Weight 75.311 kg - General physical appearance well developed, well nourished, no distress - Eyes normal ocular movement - Respiratory normal expansion, normal respiratory effort wheezing: bilateral - Cardiovascular Cardiovascular exam: Present: RRR. Absent: murmurs - Abdomen Abdomen: Present: bowel sounds present, soft Abdominal Tenderness: RLQ - Neurologic CN 2-12 grossly intact, other (no focal deficits) - Psychiatric oriented to time, oriented to person, oriented to place, speech is normal, memory intact - Labs 09/26/17 06:37 09/26/17 06:37 Diabetes panel 09/26/17 Range/Units 06:37 Sodium 139 (136-145) mEq/L Potassium 3.5 (3.5-5.1) mEq/L Chloride 103 (98-107) mEq/L Carbon Dioxide 30 H (23-29) mEq/L BUN 6 (6-20) mg/dL Creatinine 1.01 (0.70-1.30) mg/dL Glucose 107 H (70-105) mg/dL Calcium 8.6 (8.6-10.3) mg/dL Calcium panel 09/26/17 Range/Units 06:37 Calcium 8.6 (8.6-10.3) mg/dL Pituitary panel 09/26/17 Range/Units 06:37 Sodium 139 (136-145) mEq/L Potassium 3.5 (3.5-5.1) mEq/L Chloride 103 (98-107) mEq/L Carbon Dioxide 30 H (23-29) mEq/L BUN 6 (6-20) mg/dL Creatinine 1.01 (0.70-1.30) mg/dL Glucose 107 H (70-105) mg/dL Calcium 8.6 (8.6-10.3) mg/dL Adrenal panel 09/26/17 Range/Units 06:37 Sodium 139 (136-145) mEq/L Potassium 3.5 (3.5-5.1) mEq/L Chloride 103 (98-107) mEq/L Carbon Dioxide 30 H (23-29) mEq/L BUN 6 (6-20) mg/dL Creatinine 1.01 (0.70-1.30) mg/dL Glucose 107 H (70-105) mg/dL Calcium 8.6 (8.6-10.3) mg/dL Consult Discharge Plan - Plan Referrals: Gislee Arreaga CNP [Primary Care Provider] - Annette Corral DO [Family Provider] -
[2017-09-26] MEDS: *HR* OxyCODONE/APAP 10/325 TABLET PO PRN (12:10)
--- NOTE | 2017-09-26 15:11 | Internal Med Progress Note ---
Date of Encounter: 09/26/17 Time of Encounter: 15:08 - Assessment and plan (1) Right lower lobe pneumonia Current Visit: Yes Status: Suspected Assessment and plan: Currently receiving ertapenem and vancomycin. Patient is clinically getting better. WBC count is improving. We will plan on de-escalating antibiotics tomorrow. Moderate risk for complications. Qualifiers: Pneumonia type: due to methicillin-resistant Staphylococcus aureus (MRSA) Qualified Code(s): J15.212 - Pneumonia due to Methicillin resistant Staphylococcus aureus (2) Perforated diverticulum of large intestine Current Visit: Yes Status: Acute Assessment and plan: Continue to advance diet slowly. Surgery following. No urgent indication for surgery at this time. Pain control. Patient will start on oral pain medications. Minimize intravenous pain medications to severe episodes only. (3) COPD (chronic obstructive pulmonary disease) Current Visit: Yes Status: Chronic Assessment and plan: Continue bronchodilators as needed. Qualifiers: COPD type: unspecified COPD Qualified Code(s): J44.9 - Chronic obstructive pulmonary disease, unspecified - Subjective Interval history: Patient is doing better today. Pain is better controlled. Tolerating clear liquid diet and has been advanced to full liquids by surgery. - Constitutional Vitals: Temp Pulse Resp BP Pulse Ox 97.7 F 71 15 114/69 93 09/26/17 10:33 09/26/17 10:33 09/26/17 10:33 09/26/17 10:33 09/26/17 10:33 General appearance: Present: cooperative, A&O X 3, answers questions appropriately - Neck Neck exam general surgery: Present: supple, trachea midline. Absent: lymphadenopathy - Respiratory Respiratory exam: Present: CTAB. Absent: accessory muscle use, rales, rhonchi, wheezes - Cardiovascular Cardiovascular exam: Present: RRR, +S1, +S2. Absent: diastolic murmur, gallop, rubs, systolic murmur - GI/Abdominal GI/Abdominal exam: Present: normal bowel sounds, soft, tenderness (Mild right lower quadrant), no peritoneal signs. Absent: distended - Extremities Exam Extremities exam: Present: warm, radial pulses palpable and symmetrical. Absent : calf tenderness, cyanotic, pedal edema - Neurological Exam Neurological exam: Present: CN II-XII intact, oriented X3, no focal deficits. Absent: facial droop, speech deficit Internal Medicine: Result - Labs CBC & Chem 7: 09/26/17 06:37 09/26/17 06:37 Labs: Short CBC 09/26/17 Range/Units 06:37 WBC 11.4 H (4.3-11.1) K/mcL Hgb 12.0 L (12.9-16.9) g/dL Hct 37.4 L (37.5-50.1) % Plt Count 747 H (140-400) K/mcL Neutrophils # 6.8 (1.6-8.9) K/mcL BMP 09/26/17 06:37 Sodium 139 Potassium 3.5 Chloride 103 Carbon Dioxide 30 H BUN 6 Creatinine 1.01 Glucose 107 H Calcium 8.6 Consult Discharge Plan - Plan Referrals: Gisele Arreaga, MARLEN [Primary Care Provider] - Annette Corral DO [Family Provider] -
[2017-09-26] MEDS: Ertapenem 1,000 MG in Water for inj. (sterile) 20 ML 10 ML IVP SCH (21:13)
[2017-09-27] MEDS: *HR* Morphine 2 MG/ML SYRINGE IVP PRN ×3 (01:31→21:51)
[2017-09-27] MEDS: *HR* Heparin 5,000 UNIT/ML VIAL SQ SCH ×2 (05:19→17:36)
[2017-09-27 05:32] LABS: Basophils # 0.1 K/mcL (0.0-0.2); Eosinophils # 0.4 K/mcL (0.0-0.6); Eosinophils % 3.4 %; Hematocrit 36.3 % (37.5-50.1); Hemoglobin 11.5 g/dL (12.9-16.9); Immature Granulocytes % 0.5 % (0-4); Lymphocytes # 3.2 K/mcL (0.6-4.6); Lymphocytes % 25.9 %; Mean Corpuscular HGB Conc 31.7 g/dL (31.6-35.5); Mean Corpuscular Hemoglobin 27.6 pg (28.0-33.3); Mean Corpuscular Volume 87.1 fL (83.0-100.0); Mean Platelet Volume 8.7 fL (9.4-12.4); Monocytes # 1.4 K/mcL (0.0-1.3); Monocytes % 11.2 %; Neutrophils # 7.2 K/mcL (1.6-8.9); Platelet Count 722 K/mcL (140-400); Red Blood Count 4.17 M/mcL (4.19-5.50); Red Cell Distribution Width 13.6 % (11.5-14.5)
[2017-09-27 05:48] LABS: BUN/Creatinine Ratio 6 (6-26); Blood Urea Nitrogen 6 mg/dL (6-20); Calcium 8.6 mg/dL (8.6-10.3); Carbon Dioxide 28 mEq/L (23-29); Chloride 104 mEq/L (98-107); Glucose 108 mg/dL (70-105); Osmolality,Calculated 284 (280-300); Potassium 3.7 mEq/L (3.5-5.1); Sodium 138 mEq/L (136-145); eGFR For African Americans > 60 (> 60); eGFR For Non-African Americans > 60 (> 60)
[2017-09-27] MEDS: *HR* OxyCODONE/APAP 10/325 TABLET PO PRN ×3 (07:28→18:34)
[2017-09-27] MEDS: (ADVAIR 250/50) PO SCH ×2 (07:29→22:20)
[2017-09-27] MEDS: Nicotine 21 MG PATCH.TD24 TD SCH (07:29)
[2017-09-27] MEDS: Pantoprazole 40 MG VIAL IVP SCH (07:29)
[2017-09-27 08:34] LABS: Mycoplasma pneumoniae IgG 0.54 U/L (<=0.09)
--- NOTE | 2017-09-27 09:01 | General Surgery Progress Note ---
Date of Encounter: 09/27/17 Time of Encounter: 08:59 - Assessment and Plan (1) Perforated diverticulum of large intestine Current Visit: Yes Status: Acute CT abdomen/pelvis w IV and PO contrast 09/23/17--Right sided collections in pelvis (decreased in size); RLL consolidation concerning for pneumonia. White count has increased since yesterday, 12.4 today. Afebrile and vital signs stable. Increased tenderness of RUQ, RLQ, and suprapubic areas on palpation. Repeat CT today not markedly different from previous; free air now seen in upper abdomen, likely from dispersion of pre-existing air (as opposed to new perforation). - No urgent surgical intervention at this time - Pain control, supportive care - Consider change in IV antibiotics--currently on ertapenem and vancomycin, per primary team - IVF @ 75mL/hr - Ambulation TID and hourly incentive spirometry while awake - Protonix 40mg IV daily - Full liquid diet supplemented by Ensure - Repeat labs in AM (2) DVT prophylaxis Current Visit: Yes Status: Acute Heparin 5,000 units SubQ BID Ambulate hallways with assistance 3x daily Subjective Patient reports: still having pain Narrative: Patient seen and examined this morning at bedside. Patient reports worsening of abdominal pain that began last night, several hours after eating mashed potatoes and gravy. Pain described as intermittent, a sharp pulling/stretching sensation. Pain is worsened by coughing. At it's worst, patient rates pain 8/ 10. Denies subjective fever/chills, nausea, vomiting, shortness of breath. Objective Vital Signs - Last 8 Hours Temp Pulse Resp BP Pulse Ox 09/27/17 07:11 97.5 F L 71 16 131/83 93 09/27/17 03:36 97.9 F 68 16 113/79 94 Intake and Output 09/26/17 09/27/17 09/27/17 23:59 07:59 15:59 Intake Total 1110 / 1110 445 / 445 Output Total 1725 / 1725 Balance 1110 / 1110 -1280 / -1280 Intake: IV Fluids 1110 / 1110 445 / 445 0.45% Sodium Chloride 1000 Ml 850 / 850 445 / 445 1000 Ml 1,000 ML @ 75 mls/hr IVC .[id number] [facility] Rx#:[id number] INVanz 1,000 MG In Water for inj. (sterile) 10 ML @ 200 mls/ hr IVP HS [facility] Rx#:[id number] Vancocin 1,250 MG In Dextrose 5 250 / 250 % 250 ML @ 166.67 mls/hr IVPB Q12H [facility] Rx#:[id number] Output: Urine 1725 / 1725 Other: # Bowel Movements 0 Weight 75.2 kg Patient Weight 09/27/17 23:59 Weight 75.2 kg - General physical appearance well developed, well nourished, no distress - Respiratory normal expansion, normal respiratory effort wheezing: bilateral - Cardiovascular Cardiovascular exam: Present: RRR. Absent: no murmurs/rubs/gallops - Abdomen Abdomen: Present: bowel sounds present, soft, tender. Absent: rigid Abdominal Tenderness: RUQ, RLQ, suprapubic - Neurologic CN 2-12 grossly intact, other (no focal deficits) - Psychiatric oriented to time, oriented to person, oriented to place, speech is normal, memory intact - Labs 09/27/17 05:03 09/27/17 05:03 Diabetes panel 09/27/17 Range/Units 05:03 Sodium 138 (136-145) mEq/L Potassium 3.7 (3.5-5.1) mEq/L Chloride 104 (98-107) mEq/L Carbon Dioxide 28 (23-29) mEq/L BUN 6 (6-20) mg/dL Creatinine 1.02 (0.70-1.30) mg/dL Glucose 108 H (70-105) mg/dL Calcium 8.6 (8.6-10.3) mg/dL Calcium panel 09/27/17 Range/Units 05:03 Calcium 8.6 (8.6-10.3) mg/dL Pituitary panel 09/27/17 Range/Units 05:03 Sodium 138 (136-145) mEq/L Potassium 3.7 (3.5-5.1) mEq/L Chloride 104 (98-107) mEq/L Carbon Dioxide 28 (23-29) mEq/L BUN 6 (6-20) mg/dL Creatinine 1.02 (0.70-1.30) mg/dL Glucose 108 H (70-105) mg/dL Calcium 8.6 (8.6-10.3) mg/dL Adrenal panel 09/27/17 Range/Units 05:03 Sodium 138 (136-145) mEq/L Potassium 3.7 (3.5-5.1) mEq/L Chloride 104 (98-107) mEq/L Carbon Dioxide 28 (23-29) mEq/L BUN 6 (6-20) mg/dL Creatinine 1.02 (0.70-1.30) mg/dL Glucose 108 H (70-105) mg/dL Calcium 8.6 (8.6-10.3) mg/dL Consult Discharge Plan - Plan Referrals: Gisele Arreaga CNP [Primary Care Provider] - Annette Corral DO [Family Provider] -
[2017-09-27] MEDS: Vancomycin 1,250 MG in D5% in Water 250 ML IVPB SCH ×2 (09:06→21:51)
[2017-09-27] MEDS: MetroNIDAZOLE 500 MG/100 ML 500 MG/100 ML BAG IVPB SCH (15:46)
--- NOTE | 2017-09-27 16:43 | Internal Med Progress Note ---
Date of Encounter: 09/27/17 Time of Encounter: 09:00 - Assessment and plan (1) Right lower lobe pneumonia Current Visit: Yes Status: Suspected Assessment and plan: CT scan of the abdomen and pelvis done today shows persistent pneumonia. We will change antibiotic to Levaquin. Qualifiers: Pneumonia type: due to methicillin-resistant Staphylococcus aureus (MRSA) Qualified Code(s): J15.212 - Pneumonia due to Methicillin resistant Staphylococcus aureus (2) Perforated diverticulum of large intestine Current Visit: Yes Status: Acute Assessment and plan: Patient complaining of right lower quadrant abdominal pain today. CT scan of the abdomen and pelvis continues to show small abscess measuring 2.2 x 2.1 cm. Surgery following. Surgery recommends changing antibiotics. Agree with this plan. Will place patient on Levaquin instead of ciprofloxacin for better lung coverage to treat both conditions. Continue Flagyl. (3) COPD (chronic obstructive pulmonary disease) Current Visit: Yes Status: Chronic Assessment and plan: Continue bronchodilators. Not in acute exacerbation. Qualifiers: COPD type: unspecified COPD Qualified Code(s): J44.9 - Chronic obstructive pulmonary disease, unspecified (4) Moderate protein-calorie malnutrition Current Visit: Yes Status: Acute Assessment and plan: Due to acute diverticulitis and initial nothing by mouth status. Currently on full liquid diet and dietary supplements. - Subjective Interval history: Patient complaining of swelling abdominal pain in the right lower quadrant today. He began to get worse last night after he has dinner. It has continued intermittently since then. - Constitutional Vitals: Temp Pulse Resp BP Pulse Ox 98.9 F 67 15 116/74 91 09/27/17 15:35 09/27/17 15:35 09/27/17 15:35 09/27/17 15:35 09/27/17 15:35 General appearance: Present: cooperative, A&O X 3, answers questions appropriately - Respiratory Respiratory exam: Present: CTAB. Absent: accessory muscle use, rales, rhonchi, wheezes - Cardiovascular Cardiovascular exam: Present: RRR, +S1, +S2. Absent: diastolic murmur, gallop, rubs, systolic murmur - GI/Abdominal GI/Abdominal exam: Present: normal bowel sounds, soft, tenderness (right lower quadrant), no peritoneal signs. Absent: distended - Extremities Exam Extremities exam: Present: warm, radial pulses palpable and symmetrical. Absent : calf tenderness, cyanotic, pedal edema - Neurological Exam Neurological exam: Present: CN II-XII intact, oriented X3, no focal deficits. Absent: facial droop, speech deficit - Skin Skin exam: Present: dry, intact Internal Medicine: Result - Labs CBC & Chem 7: 09/27/17 05:03 09/27/17 05:03 Labs: Short CBC 09/27/17 Range/Units 05:03 WBC 12.4 H (4.3-11.1) K/mcL Hgb 11.5 L (12.9-16.9) g/dL Hct 36.3 L (37.5-50.1) % Plt Count 722 H (140-400) K/mcL Neutrophils # 7.2 (1.6-8.9) K/mcL BMP 09/27/17 05:03 Sodium 138 Potassium 3.7 Chloride 104 Carbon Dioxide 28 BUN 6 Creatinine 1.02 Glucose 108 H Calcium 8.6 - Impressions Impressions Abdomen/Pelvis CT 09/27/17 12:00 IMPRESSION: 1. Evolving changes in the central upper pelvis compatible with presumed subacute perforated diverticulitis of the sigmoid colon. Loculated fluid collection measuring 2.2 x 2.1 cm is seen, possibly representing early abscess. Several loops of small bowel in the central pelvis appear mildly thick-walled without obstruction. 2. Loculated free air is again identified in the central pelvis. Additionally, free air is now identified in the upper abdomen, likely representing dispersion of the pre-existing air rather than a new perforation. 3. Right base opacity concerning for pneumonia. 4. Severe diverticulosis. 5. Nonobstructing bilateral nephrolithiasis. D/ / 09/27/2017 12:36:24 Judi Shaw MD / [email or web address] Interpreting Provider: Judi Shaw MD Consult Discharge Plan - Plan Referrals: Gisele Arreaga CNP [Primary Care Provider] - Annette Corral DO [Family Provider] -
[2017-09-27] MEDS: Levofloxacin 750 MG/150 ML 750 MG/150 ML BAG IVPB SCH (17:20)
[2017-09-28] MEDS: *HR* Morphine 2 MG/ML SYRINGE IVP PRN ×2 (01:22→10:02)
[2017-09-28] MEDS: MetroNIDAZOLE 500 MG/100 ML 500 MG/100 ML BAG IVPB SCH ×2 (01:22→08:14)
[2017-09-28 05:00] LABS: Basophils # 0.1 K/mcL (0.0-0.2); Eosinophils # 0.5 K/mcL (0.0-0.6); Eosinophils % 3.7 %; Hematocrit 35.4 % (37.5-50.1); Hemoglobin 11.6 g/dL (12.9-16.9); Immature Granulocytes % 0.4 % (0-4); Lymphocytes # 2.7 K/mcL (0.6-4.6); Lymphocytes % 19.4 %; Mean Corpuscular HGB Conc 32.8 g/dL (31.6-35.5); Mean Corpuscular Hemoglobin 28.6 pg (28.0-33.3); Mean Corpuscular Volume 87.2 fL (83.0-100.0); Mean Platelet Volume 8.7 fL (9.4-12.4); Monocytes # 1.6 K/mcL (0.0-1.3); Monocytes % 11.7 %; Neutrophils # 8.8 K/mcL (1.6-8.9); Platelet Count 605 K/mcL (140-400); Red Blood Count 4.06 M/mcL (4.19-5.50); Red Cell Distribution Width 13.6 % (11.5-14.5); Segmented Neutrophils % 63.8 %
[2017-09-28 05:11] LABS: BUN/Creatinine Ratio 7 (6-26); Blood Urea Nitrogen 7 mg/dL (6-20); Calcium 8.5 mg/dL (8.6-10.3); Carbon Dioxide 27 mEq/L (23-29); Chloride 104 mEq/L (98-107); Glucose 96 mg/dL (70-105); Osmolality,Calculated 282 (280-300); Potassium 4.1 mEq/L (3.5-5.1); Sodium 137 mEq/L (136-145); eGFR For African Americans > 60 (> 60); eGFR For Non-African Americans > 60 (> 60)
[2017-09-28] MEDS: *HR* OxyCODONE/APAP 10/325 TABLET PO PRN (06:32)
[2017-09-28] MEDS: *HR* Heparin 5,000 UNIT/ML VIAL SQ SCH (06:33)
[2017-09-28] MEDS: Pantoprazole 40 MG VIAL IVP SCH (08:14)
[2017-09-28] MEDS: Levofloxacin 750 MG/150 ML 750 MG/150 ML BAG IVPB SCH (08:15)
[2017-09-28] MEDS: Nicotine 21 MG PATCH.TD24 TD SCH (08:15)
[2017-09-28 08:23] VITALS: BP 141/80
[2017-09-28] MEDS: (ADVAIR 250/50) PO SCH (08:57)
[2017-09-28] MEDS: Vancomycin 1,250 MG in D5% in Water 250 ML IVPB SCH (10:02)
--- NOTE | 2017-09-28 10:02 | General Surgery Progress Note ---
Date of Encounter: 09/28/17 Time of Encounter: 08:57 - Assessment and Plan (1) Perforated diverticulum of large intestine Status: Acute CT abdomen/pelvis w IV and PO contrast 09/23/17--Right sided collections in pelvis (decreased in size); RLL consolidation concerning for pneumonia. Repeat CT 09/27/17--not markedly different from previous; free air now seen in upper abdomen, likely from dispersion of pre-existing air (as opposed to new perforation). White count trending upwards, 12.4 yesterday, 13.7 this morning. Remains afebrile with stable vital signs. Per patient, same intermittent abdominal pain as yesterday. - Abx changed--now on levaquin and flagyl, ok to switch to PO - Low residue (fiber) diet supplemented by Ensure - Outpatient f/u with surgery (Dr. Armstrong next week) - From surgical standpoint, patient can can be discharged home--no urgent surgical intervention at this time - Pain control, supportive care - IVF @ 75mL/hr - Ambulation TID and hourly incentive spirometry while awake - Protonix 40mg IV daily (2) DVT prophylaxis Status: Acute Continue Heparin 5,000 units SubQ BID Ambulate hallways with assistance 3x daily Subjective Patient reports: no new complaints, still having pain, tolerating liquids well Narrative: Seen and examined this morning at bedside. Patient states he feels the same as yesterday, he feels ok. No new complaints. Continues c/o RLQ abdominal pain, unchanged from yesterday. No nausea, vomiting, chest pain, dyspnea. Objective Vital Signs - Last 8 Hours Temp Pulse Resp BP Pulse Ox 09/28/17 08:18 97.6 F 68 16 141/80 90 09/28/17 04:02 98.2 F 71 14 150/78 92 Intake and Output 09/27/17 09/28/17 09/28/17 23:59 07:59 15:59 Intake Total 1074 / 1074 340 / 340 Output Total 900 / 900 700 / 700 750 / 750 Balance 174 / 174 -360 / -360 -750 / -750 Intake: IV Fluids 474 / 474 100 / 100 0.45% Sodium Chloride 1000 Ml 224 / 224 1000 Ml 1,000 ML @ 75 mls/hr IVC .[id number] [facility] Rx#:[id number] Levaquin Premix 750mg/150 mL 150 / 150 750 mg In 150 ml @ 100 mls/hr IVPB DAILY [facility] Rx#:[id number] Flagyl Premix 500 MG/100 ML 500 100 / 100 100 / 100 mg In 100 ml @ 100 mls/hr IVPB Q8HR [facility] Rx#:[id number] Oral 600 / 600 240 / 240 Output: Urine 900 / 900 700 / 700 750 / 750 Other: Meal Full Percent of Meal Consumed 0% # Bowel Movements 0 Weight 74.933 kg Patient Weight 09/28/17 23:59 Weight 74.933 kg - General physical appearance well developed, well nourished, no distress, no pain - Eyes normal ocular movement - Respiratory normal expansion, normal respiratory effort, clear to auscultation - Cardiovascular Cardiovascular exam: Present: RRR. Absent: no murmurs/rubs/gallops - Abdomen Abdomen: Present: bowel sounds present, soft. Absent: guarding, peritoneal Abdominal Tenderness: RLQ - Neurologic CN 2-12 grossly intact - Psychiatric oriented to time, oriented to person, oriented to place, speech is normal, memory intact - Labs 09/28/17 04:39 09/28/17 04:39 Diabetes panel 09/28/17 Range/Units 04:39 Sodium 137 (136-145) mEq/L Potassium 4.1 (3.5-5.1) mEq/L Chloride 104 (98-107) mEq/L Carbon Dioxide 27 (23-29) mEq/L BUN 7 (6-20) mg/dL Creatinine 1.06 (0.70-1.30) mg/dL Glucose 96 (70-105) mg/dL Calcium 8.5 L (8.6-10.3) mg/dL Calcium panel 09/28/17 Range/Units 04:39 Calcium 8.5 L (8.6-10.3) mg/dL Pituitary panel 09/28/17 Range/Units 04:39 Sodium 137 (136-145) mEq/L Potassium 4.1 (3.5-5.1) mEq/L Chloride 104 (98-107) mEq/L Carbon Dioxide 27 (23-29) mEq/L BUN 7 (6-20) mg/dL Creatinine 1.06 (0.70-1.30) mg/dL Glucose 96 (70-105) mg/dL Calcium 8.5 L (8.6-10.3) mg/dL Adrenal panel 09/28/17 Range/Units 04:39 Sodium 137 (136-145) mEq/L Potassium 4.1 (3.5-5.1) mEq/L Chloride 104 (98-107) mEq/L Carbon Dioxide 27 (23-29) mEq/L BUN 7 (6-20) mg/dL Creatinine 1.06 (0.70-1.30) mg/dL Glucose 96 (70-105) mg/dL Calcium 8.5 L (8.6-10.3) mg/dL Consult Discharge Plan - Plan Instructions: Chronic Obstructive Pulmonary Disease (DC) Additional Instructions: - Please take all your meds as prescribed. - Please take your antibiotics, as prescribed, until they gone. - Eat a low fiber diet. - Do not drink alcohol while taking flagyl. - Follow up with [facility] as an outpatient on 10/04/17 at 09: 00am. Referrals: Gisele Arreaga CNP [Primary Care Provider] - Annette Corral DO [Family Provider] - Damari Neal CNP [Advanced Practice Nurse] - 10/04/17 9:00 am Prescriptions: OxyCODONE/APAP 10/325 [Percocet 10/325 MG] 1 each PO Q4HR PRN #14 tablet PRN Reason: Moderate Pain Levofloxacin [Levaquin] 750 mg PO DAILY #7 tablet metroNIDAZOLE [Flagyl] 500 mg PO TID #21 tablet
--- NOTE | 2017-09-28 12:33 | Discharge Summary ---
Date of Encounter: 09/28/17 Time of Encounter: 12:24 - Discharge Diagnosis (1) Perforated diverticulum of large intestine Priority: Primary Status: Acute (2) Right lower lobe pneumonia Priority: Secondary Status: Acute Qualifiers: Pneumonia type: due to unspecified organism Qualified Code(s): J18.1 - Lobar pneumonia, unspecified organism (3) COPD (chronic obstructive pulmonary disease) Priority: Secondary Status: Chronic Qualifiers: COPD type: unspecified COPD Qualified Code(s): J44.9 - Chronic obstructive pulmonary disease, unspecified (4) Moderate protein-calorie malnutrition Priority: Secondary Status: Acute - Discharge Medications Prescriptions: OxyCODONE/APAP 10/325 [Percocet 10/325 MG] 1 each PO Q4HR PRN #14 tablet PRN Reason: Moderate Pain Levofloxacin [Levaquin] 750 mg PO DAILY #7 tablet metroNIDAZOLE [Flagyl] 500 mg PO TID #21 tablet Home Medications: Loratadine [Claritin] 10 mg PO DAILY 09/10/17 [History] Albuterol Sulfate [Ventolin Hfa] 2 puff IH Q6H PRN 09/20/17 [History] Fluticasone/Salmeterol [Advair 250-50 Diskus] 1 puff IH BID 09/20/17 [History] Omeprazole 20 mg PO DAILY 09/20/17 [History] Levofloxacin [Levaquin] 750 mg PO DAILY #7 tablet 09/28/17 [Rx] OxyCODONE/APAP 10/325 [Percocet 10/325 MG] 1 each PO Q4HR PRN #14 tablet [Rx] metroNIDAZOLE [Flagyl] 500 mg PO TID #21 tablet 09/28/17 [Rx] Allergies/Adverse Reactions: 3 Allergy/AdvReac Type Severity Reaction Status Date / Time No Known Allergies Allergy Verified 09/10/17 17:25 Procedures/tests Complete & Pending: Procedures Performed prior 72 hours Category Date Time Status CT abd pelvis w iv and oral [CT] Stat Cat Scan 09/27/17 12:00 Draft Date of admission: 09/20/17 17:27 Primary care physician: Gisele Arreaga Consults: 09/20/17 20:54 Consult to Interventional Radiology [CONS] Routine Consulting Provider: Radiology Interventional Cols Reason for Consult: intrabdominal abscess draining Call Completed: No Consult to Surgery [CONS] Routine Consulting Provider: Qamar Armstrong Reason for Consult: intrabdominal abscess Call Completed: No Discharging clinician: Nico Ruiz Anticipated date of discharge: 09/28/17 - Patient Status Disposition: Home, Self-Care Functional capacity at discharge: independent ambulation Overall status at discharge: patient is progressing back to baseline - Discharge Instructions Instructions: Chronic Obstructive Pulmonary Disease (DC) Follow Up With: Gisele Arreaga CNP [Primary Care Provider] - Damari Neal CNP [Advanced Practice Nurse] - 10/04/17 9:00 am Annette Corral DO [Family Provider] - Additional Instructions: - Please take all your meds as prescribed. - Please take your antibiotics, as prescribed, until they gone. - Eat a low fiber diet. - Do not drink alcohol while taking flagyl. - Follow up with [facility] as an outpatient on 10/04/17 at 09: 00am. - Diet and Activity Activity: increase activity as tolerated Diet: low salt diet, other (low residue diet) Hospital course: Mr. Giraldo is a 57 year old male patient with history of asthma, possible COPD, gastroesophageal reflux disease, who was being treated with antibiotics for acute sigmoid diverticulitis after being discharged from [facility] following hospitalization for this condition presented to the ER with complaints of worsening abdominal pain in the right lower quadrant. He was diagnosed with acute intra-abdominal abscesses related to perforated diverticulum. As such she was hospitalized here and surgery was consulted. Surgery did not recommend any urgent surgical intervention. Radiology was consulted to evaluate patency of the patient's abscesses could be drained. However the abscesses were 2 small indeterminant to be nondraining wound. As such conservative medical management was continued with nothing by mouth status, IV fluids and IV antibiotics. Pain was controlled with intravenous narcotic medications. Patient's condition has slowly improved with this treatment plan. He does have continued low-grade leukocytosis and continued abdominal pain but repeat CT scans for the abscesses have not revealed any increase in their size. At this time patient is tolerating oral diet and surgery has recommended that he be discharged home on oral antibiotics. He will follow up with surgery for further management. He is advised to return to the ER if he develops any further episodes of fevers chills or worsening abdominal pain. - Time Spent with Patient Total time spent providing and/or coordinating discharge services: Greater than 30 minutes (35 min) - Constitutional Vitals: Temp Pulse Resp BP Pulse Ox 97.6 F 68 16 141/80 99 09/28/17 08:18 09/28/17 08:18 09/28/17 08:57 09/28/17 08:18 09/28/17 08:57 General appearance: Present: cooperative, A&O X 3, answers questions appropriately - Respiratory Respiratory exam: Present: CTAB. Absent: accessory muscle use, rales, rhonchi, wheezes - Cardiovascular Cardiovascular exam: Present: RRR, +S1, +S2. Absent: diastolic murmur, gallop, rubs, systolic murmur - GI/Abdominal GI/Abdominal exam: Present: normal bowel sounds, soft, tenderness (right lower quadrant tenderness), no peritoneal signs. Absent: distended - Extremities Exam Extremities exam: Present: warm, radial pulses palpable and symmetrical. Absent : calf tenderness, cyanotic, pedal edema - Neurological Exam Neurological exam: Present: CN II-XII intact, oriented X3, no focal deficits. Absent: facial droop, speech deficit
[2017-09-28] MEDS ORDERED: Aminoglycoside Consult 1 EACH MC ONE (13:29)
== END 2017-09-28 13:30 | disposition home or self-care (01) | DRG 244 ==
LOC: 3ANU 17:27 → SUATTDRO 17:27 → 3ANU 09-21 22:34
PROVIDERS: ADMIT Pediatrics; ATTEND Internal Medicine

== ENCOUNTER 2017-10-03 10:47 | Inpatient (IN) ==
[2017-10-03 12:08] LABS: Basophils # 0.1 K/mcL (0.0-0.2); Basophils % 0.6 %; Eosinophils # 0.7 K/mcL (0.0-0.6); Hematocrit 39.9 % (37.5-50.1); Hemoglobin 13.1 g/dL (12.9-16.9); Immature Granulocytes % 0.8 % (0-4); Lymphocytes # 2.4 K/mcL (0.6-4.6); Lymphocytes % 16.6 %; Mean Corpuscular HGB Conc 32.8 g/dL (31.6-35.5); Mean Corpuscular Hemoglobin 28.2 pg (28.0-33.3); Mean Corpuscular Volume 85.8 fL (83.0-100.0); Mean Platelet Volume 8.7 fL (9.4-12.4); Monocytes # 1.5 K/mcL (0.0-1.3); Monocytes % 10.1 %; Neutrophils # 9.6 K/mcL (1.6-8.9); Platelet Count 431 K/mcL (140-400); Red Blood Count 4.65 M/mcL (4.19-5.50); Red Cell Distribution Width 13.9 % (11.5-14.5); Segmented Neutrophils % 66.9 %
[2017-10-03 12:14] LABS: Alanine Aminotransferase 7 Units/L (7-52); Albumin 3.3 g/dL (3.5-5.7); Albumin/Globulin Ratio 0.9 (1.1-2.2); Alkaline Phosphatase 58 Units/L (34-104); Amylase 27 Units/L (29-103); Aspartate Amino Transferase 11 Units/L (13-39); BUN/Creatinine Ratio 10 (6-26); Bilirubin,Direct 0.1 mg/dL (0.0-0.2); Bilirubin,Indirect 0.3 mg/dL (0.0-1.2); Bilirubin,Total 0.4 mg/dL (0.3-1.0); Blood Urea Nitrogen 12 mg/dL (6-20); Calcium 9.3 mg/dL (8.6-10.3); Carbon Dioxide 29 mEq/L (23-29); Chloride 101 mEq/L (98-107); Globulin 3.8 g/dL (2.4-3.5); Glucose 117 mg/dL (70-105); Lipase 19 Units/L (11-82); Osmolality,Calculated 281 (280-300); Potassium 4.2 mEq/L (3.5-5.1); Sodium 135 mEq/L (136-145); Total Protein 7.1 g/dL (6.4-8.9); eGFR For African Americans > 60 (> 60); eGFR For Non-African Americans > 60 (> 60)
--- NOTE | 2017-10-03 13:20 | Emergency Department Note ---
Disposition Clinical Impression: Intra-abdominal abscess Disposition: Admitted As Inpatient Condition: Good Time of Disposition: 16:26 General Adult HPI - General Chief complaint: ED Abdominal Pain Stated complaint: Abdominal pain Time Seen by Provider: 10/03/17 10:57 Source: patient, family Limitations: no limitations Nursing Notes Reviewed: Yes Vital Signs Reviewed: Yes - History of Present Illness HPI Narrative: This is a 57-year-old male that presents emergency department for abdominal pain. He states that he was discharged from the hospital approximate 4 days ago and was told that he may have an abscess in his right lower quadrant. He states that the pain is ongoing and worsening. He states that the pain is located in his right lower quadrant is not significantly better worse and rates his pain as7 out of 10. States that he has had fever and chills. States that he has had a fever as high as 104 at home. Pain Scale: 7 - Related Data Home Medications Medication Instructions Recorded Confirmed Loratadine [Claritin] 10 mg PO DAILY 09/10/17 10/03/17 Albuterol Sulfate [Ventolin Hfa] 2 puff IH Q6H PRN 09/20/17 10/03/17 Fluticasone/Salmeterol [Advair 1 puff IH BID 09/20/17 10/03/17 250-50 Diskus] Omeprazole 20 mg PO DAILY 09/20/17 10/03/17 Previous Rx's Medication Instructions Recorded Levofloxacin [Levaquin] 750 mg PO DAILY #7 tablet 09/28/17 OxyCODONE/APAP 10/325 [Percocet 1 each PO Q4HR PRN #14 tablet 09/28/17 10/325 MG] metroNIDAZOLE [Flagyl] 500 mg PO TID #21 tablet 09/28/17 Allergies Allergy/AdvReac Type Severity Reaction Status Date / Time No Known Allergies Allergy Verified 10/03/17 10:53 All systems ED: reviewed and negative except as stated. Constitutional: Reports: fever, chills Gastrointestinal: Reports: abdominal pain Past Medical History - Past Medical History Medical history: Reports: asthma, COPD, GERD, other Surgical history: Reports: no surgical history Psychiatric history: Reports: no psych history - Social History Smoking Status: Current every day smoker Smokeless Tobacco Status: No Alcohol use: Reports: none Drug use: Reports: marijuana Physical Exam - General Limitations: no limitations General appearance: alert, in no apparent distress - Head Head exam: atraumatic, normocephalic - Eye Eye exam: Present: normal appearance, EOMI - Neck Neck exam: Present: normal inspection, full ROM, trachea midline - Respiratory Respiratory exam: Present: normal lung sounds bilaterally. Absent: respiratory distress, wheezes - Cardiovascular Cardiovascular exam: Present: regular rate, normal rhythm, normal heart sounds, +S1, +S2 - Abdominal Exam Abdominal exam: Present: soft, tenderness, normal bowel sounds Abdominal tenderness: Present: RLQ, moderate - Neurological Exam Neurological exam: Present: alert, oriented X3 - Psychiatric Psychiatric exam: Present: normal affect, normal mood - Skin Skin exam: Present: warm, dry, intact Course Vital Signs Temperature 97.6 F 10/03/17 10:48 Pulse Rate 95 10/03/17 10:48 Respiratory Rate 16 10/03/17 10:48 Blood Pressure 143/86 10/03/17 10:48 O2 Sat by Pulse Oximetry 98 10/03/17 10:48 Temperature 97.8 F 10/04/17 19:15 Pulse Rate 62 10/04/17 19:15 Respiratory Rate 14 10/04/17 19:15 Blood Pressure 121/55 10/04/17 19:15 O2 Sat by Pulse Oximetry 94 10/04/17 19:34 Oxygen Delivery Oxygen Delivery Room Air Medical Decision Making - [facility] Narrative Medical decision making narrative: Due to the patient having a previous history of admissions for possible abscess and perforation due to diverticulosis we will order a CBC, BMP,, amylase, lipase , urinalysis and we will repeat a CT of the abdomen and pelvis. Repeat CT scan showed possible abscess that appears to be enlarging since previous scan on 09/27. Patient does have an elevated white count of 14.4 which be consistent with possible infection. I called and spoke to Dr. Cullen the on-call surgeon and he has accepted the patient to his service for possible abscess drainage. The patient will be admitted to the hospital for further evaluation and management under the surgical service. The patient was started on IV antibiotics here in the emergency department consisting of Cipro and Flagyl. - Lab Data Lab results reviewed: Yes I reviewed the patient's lab results. Result diagrams: 10/03/17 11:52 10/03/17 11:52 Lab Results 01/17/18 01/17/18 01/17/18 Range/Units 11:04 11:52 11:52 WBC 14.4 H (4.3-11.1) K/mcL RBC 4.65 (4.19-5.50) M/mcL Hgb 13.1 D (12.9-16.9) g/dL Hct 39.9 (37.5-50.1) % MCV 85.8 (83.0-100.0) fL MCH 28.2 (28.0-33.3) pg MCHC 32.8 (31.6-35.5) g/dL RDW 13.9 (11.5-14.5) % Plt Count 431 H (140-400) K/mcL MPV 8.7 L (9.4-12.4) fL Immature Gran % 0.8 (0-4) % Seg Neutrophils % 66.9 % Lymphocytes % 16.6 % Monocytes % 10.1 % Eosinophils % 5.0 % Basophils % 0.6 % Neutrophils # 9.6 H (1.6-8.9) K/mcL Lymphocytes # 2.4 (0.6-4.6) K/mcL Monocytes # 1.5 H (0.0-1.3) K/mcL Eosinophils # 0.7 H (0.0-0.6) K/mcL Basophils # 0.1 (0.0-0.2) K/mcL Sodium 135 L (136-145) mEq/L Potassium 4.2 (3.5-5.1) mEq/L Chloride 101 (98-107) mEq/L Carbon Dioxide 29 (23-29) mEq/L BUN 12 (6-20) mg/dL Creatinine 1.15 (0.70-1.30) mg/dL Est GFR ( Amer) > 60 (> 60) Est GFR (Non-Af Amer) > 60 (> 60) BUN/Creatinine Ratio 10 (6-26) Glucose 117 H (70-105) mg/dL Calculated Osmolality 281 (280-300) Lactic Acid (0.5-2.2) mmol/L Calcium 9.3 (8.6-10.3) mg/dL Total Bilirubin 0.4 (0.3-1.0) mg/dL Direct Bilirubin 0.1 (0.0-0.2) mg/dL Indirect Bilirubin 0.3 (0.0-1.2) mg/dL AST 11 L (13-39) Units/L ALT 7 (7-52) Units/L Alkaline Phosphatase 58 (34-104) Units/L Serum Total Protein 7.1 (6.4-8.9) g/dL Albumin 3.3 L (3.5-5.7) g/dL Globulin 3.8 H (2.4-3.5) g/dL Albumin/Globulin Ratio 0.9 L (1.1-2.2) Amylase 27 L (29-103) Units/L Lipase 19 (11-82) Units/L Urine Color Yellow (Yellow) Urine Clarity Clear (Clear) Urine pH 6.5 (5.0-8.0) pH Units Ur Specific [place] 1.019 (1.010-1.025) Urine Protein Negative (Neg-Trace) mg/dL Urine Glucose (UA) Normal (Normal) mg/dL Urine Ketones Negative (Negative) mg/dL Urine Blood Negative (Negative) Urine Nitrite Negative (Negative) Urine Bilirubin Negative (Negative) Urine Urobilinogen Normal (Normal) mg/dL Ur Leukocyte Esterase Negative (Negative) Ur Culture Indicated? NO (NO) 10/03/17 Range/Units 11:52 WBC (4.3-11.1) K/mcL RBC (4.19-5.50) M/mcL Hgb (12.9-16.9) g/dL Hct (37.5-50.1) % MCV (83.0-100.0) fL MCH (28.0-33.3) pg MCHC (31.6-35.5) g/dL RDW (11.5-14.5) % Plt Count (140-400) K/mcL MPV (9.4-12.4) fL Immature Gran % (0-4) % Seg Neutrophils % % Lymphocytes % % Monocytes % % Eosinophils % % Basophils % % Neutrophils # (1.6-8.9) K/mcL Lymphocytes # (0.6-4.6) K/mcL Monocytes # (0.0-1.3) K/mcL Eosinophils # (0.0-0.6) K/mcL Basophils # (0.0-0.2) K/mcL Sodium (136-145) mEq/L Potassium (3.5-5.1) mEq/L Chloride (98-107) mEq/L Carbon Dioxide (23-29) mEq/L BUN (6-20) mg/dL Creatinine (0.70-1.30) mg/dL Est GFR ( Amer) (> 60) Est GFR (Non-Af Amer) (> 60) BUN/Creatinine Ratio (6-26) Glucose (70-105) mg/dL Calculated Osmolality (280-300) Lactic Acid 1.2 (0.5-2.2) mmol/L Calcium (8.6-10.3) mg/dL Total Bilirubin (0.3-1.0) mg/dL Direct Bilirubin (0.0-0.2) mg/dL Indirect Bilirubin (0.0-1.2) mg/dL AST (13-39) Units/L ALT (7-52) Units/L Alkaline Phosphatase (34-104) Units/L Serum Total Protein (6.4-8.9) g/dL Albumin (3.5-5.7) g/dL Globulin (2.4-3.5) g/dL Albumin/Globulin Ratio (1.1-2.2) Amylase (29-103) Units/L Lipase (11-82) Units/L Urine Color (Yellow) Urine Clarity (Clear) Urine pH (5.0-8.0) pH Units Ur Specific [place] (1.010-1.025) Urine Protein (Neg-Trace) mg/dL Urine Glucose (UA) (Normal) mg/dL Urine Ketones (Negative) mg/dL Urine Blood (Negative) Urine Nitrite (Negative) Urine Bilirubin (Negative) Urine Urobilinogen (Normal) mg/dL Ur Leukocyte Esterase (Negative) Ur Culture Indicated? (NO) - Radiology Data Radiology results reviewed: Yes I reviewed the patient's radiology results. Abdomen/Pelvis CT 10/03/17 13:30 IMPRESSION: Multiloculated fluid collection with internal gas to the anterior upper pelvis/lower abdomen compatible with abscess. This appears enlarged from prior exam 09/27/2017. There continues to be some loculated free air in the upper pelvis paramidline towards the right, similar to prior exam. Additional scattered mild free air to the upper abdomen on prior exam appears to have resolved. No new or worsening intraperitoneal free air is seen. Redemonstration of multiple abnormal small bowel loops to the mid to lower abdomen anteriorly which demonstrate wall thickening, likely reflecting nonspecific enteritis, possibly secondary to the abscess and similar to prior exam. No evidence for obstruction. Colonic diverticulosis without evidence for acute diverticulitis. Stable nonobstructing bilateral renal stones. Emphysema. D/ / 10/03/2017 15:51:58 Phan Morales MD / lena Interpreting Provider: Phan Morales MD Attestation Statement - Attestation Attestation: I examined this patient and my medical decision-making was reviewed with the Resident Physician. I agree with the documented findings, disposition and treatment plan as described except to the extent set forth below. Findings consistent with abscess formation after diverticulitis. We will admit for surgical consult. Discussed case with attending surgeon.
[2017-10-03 13:48] LABS: Bilirubin,Urine Negative (Negative); Blood,Urine Negative (Negative); Clarity,Urine Clear (Clear); Color,Urine Yellow (Yellow); Glucose,Urine (UA) Normal (Normal); Ketones,Urine Negative (Negative); Leukocyte Esterase,Urine Negative (Negative); Nitrite,Urine Negative (Negative); PH,Urine 6.5 pH Units (5.0-8.0); Protein,Urine Negative (Neg-Trace); Specific Gravity,Urine 1.019 (1.010-1.025); Urobilinogen,Urine Normal (Normal)
[2017-10-03] MEDS ORDERED: *HR* FentaNYL (PF) 100 MCG/2 ML VIAL IVP ONE (15:25)
[2017-10-03] MEDS ORDERED: MetroNIDAZOLE 500 MG/100 ML 500 MG/100 ML BAG IVPB ONE (16:09)
[2017-10-03] MEDS ORDERED: Albuterol 2.5 MG/3 ML NEBULIZER ONE (23:16)
[2017-10-03] MEDS: *HR* HYDROmorphone 2 MG/ML SYRINGE IVP PRN (23:56)
[2017-10-03] MEDS: 0.9 % Sodium Chloride 1,000 ML IVC SCH (23:56)
[2017-10-03] MEDS: Ondansetron 4 MG/2 ML VIAL IVP PRN (23:56)
[2017-10-04] MEDS: Piperacillin/Tazobactam 3.375 GM/200 ML BAG IVPB SCH ×3 (00:15→17:23)
[2017-10-04] MEDS: *HR* HYDROmorphone 2 MG/ML SYRINGE IVP PRN ×3 (06:10→19:38)
[2017-10-04] MEDS: Ondansetron 4 MG/2 ML VIAL IVP PRN (06:10)
[2017-10-04] MEDS ORDERED: Albuterol 2.5 MG/3 ML NEBULIZER IH SCH (07:00)
[2017-10-04] MEDS: 0.9 % Sodium Chloride 1,000 ML IVC SCH ×2 (08:04→20:19)
--- NOTE | 2017-10-04 08:46 | General Surg History&Physical ---
Date of Encounter: 10/04/17 Time of Encounter: 08:46 Assessment and Plan (1) Intra-abdominal abscess Current Visit: Yes Status: Acute The assessment and plan as outlined above was discussed with the patient and/or family members who expressed understanding and agreement. All questions were answered. Tender to mild palpation RLQ. Afebrile at this time. No evidence of acute diverticulitis or new free air noted. Largest loculation measures approximately 2.7 x 3.4 x 2.7 cm. This is located towards the midline anteriorly. The 2nd largest loculation is noted anteriorly to the right adjacent to this loculation and measures 2.7 x 2.7 x 2.6 cm. Plan: -consult interventional radiology for possible drain placement -continue IV Zosyn (day one) and Flagyl (day 7 of 10). Patient had completed course of levofloxacin which was previously prescribed for pneumonia; further antibiotic recommendations pending possible drain placement -NPO -supportive care and discomfort management -IV fluids -DVT and GI prophylaxis -activity is tolerated -serial abdominal exams -repeat a.m. labs -consideration for parenteral nutrition pending clinical course above. Update 10:00 - received call from Dr. Robison in who states areas are not amenable to drain placement d/t they are intimately associated with bowel and risk of inadvertent perforation. Reviewed with Dr. Armstrong. Plan as above for now. (2) Leukocytosis Current Visit: Yes Status: Acute Likely reactionary given abdominal findings. Continue IV antibiotics as detailed above. See assessment and plan above Qualifiers: Leukocytosis type: unspecified Qualified Code(s): D72.829 - Elevated white blood cell count, unspecified (3) COPD (chronic obstructive pulmonary disease) Current Visit: Yes Status: Chronic Emphysema noted on CT. No mention of pleural effusions or on resolution of pneumonia. Plan: -schedule duonebs -Continue patients home Advair (self-administered) -nicotine patch -smoking cessation is again strongly encouraged -aggressive pulmonary toileting Qualifiers: COPD type: emphysema Emphysema type: unspecified Qualified Code(s): J43.9 - Emphysema, unspecified (4) DVT prophylaxis Current Visit: Yes Status: Acute The assessment and plan as outlined above was discussed with the patient and/or family members who expressed understanding and agreement. All questions were answered. EP CDs while and then ambulated at least TID heparin 5000 units subacute BID (5) Moderate protein-calorie malnutrition Current Visit: Yes Status: Acute Repeat a.m. labs nutritional status pending clinical course above. See assessment plan above (6) Tobacco abuse Current Visit: No Status: Chronic See above History of Present Illness Chief complaint: Abdominal pain and fever HPI: Mr. Giraldo is a 57 year old male with a past medical history of smoking addiction , asthma, COPD, pneumonia, moderate protein calorie malnutrition, diverticulitis with perforation. He was most recently hospitalized on September 20 -2017 4 failed outpatient oral antibiotic therapy after being hospitalized the previous week for IV antibiotics for perforated diverticulum. He reported localized tenderness in the right lower quadrant at that time. CT of the abdomen and pelvis with IV MPO contrast on 09/23/2017 noted right side collections in the pelvis which were decreased in size and right lower lobe consolidations concerning for pneumonia. A repeat CT on 09/27/17 noted no significant change with the exception of small amount of free air seen in the upper upper abdomen likely from dispersant as opposed to a new perforation. He was discharged on Levaquin and Flagyl PO antibiotics, a low fiber diet and an outpatient follow-up with the surgery office online 10/04/2017. He reports worsening lower abdominal pain, specifically in the right lower quadrant, that is dull and achy, constant, aggravated by movement or pushing on the area, and alleviated with pain medicine. He reports fever at home with 15 max of 104F orally and some diarrhea. He denies syncope, near syncope, chest pain, vomiting, difficulty or painful urination, black, bloody, or tarry stool. He states he had been adherent to the medication and diet regimen. His hospital course thus far has included a CT of the abdomen and pelvis with IV and oral contrast which notes multi-lock elated fluid collections with internal gas to the anterior upper pelvis and lower abdomen compatible with abscess. The largest occupation measures 2.7 x 3.4 x 2.7 cm and is located towards the midline interiorly. The second-largest loculations is noted anteriorly to the right adjacent to the previous flocculation and measures 2.7 x 2.7 x [address] also notes re-demonstration of colonic diverticulosis especially to the descending and sigmoid colon without current wall thickening or particularly inflamed diverticulum to suggest acute diverticulitis. There is no evidence of obstruction. His lab studies include an elevated white blood cell count at 14.4 without bandemia, albumin 3.3, amylase 27, lipase 19, AST 11. Past Med Surg Social Fam HX - Past Medical History Source: patient Medical history: asthma, COPD, GERD, other (diverticulitis with perforation) Psychiatric history: no psych history - Past Surgical History Surgical History: no surgical history - Social History Smoking Status: Current every day smoker Packs per day: 1 1/2 Smokeless Tobacco Status: No Alcohol use: none Drug use: marijuana Occupational status: other Current living situation: Home - Independent Activity Level: Independent ambulation Recent Out of Country Travel Within the Last 8 Weeks: No Exposure or Possible Exposure to Illness During Travel: No - Family History Mother History Unknown: Yes Father History Unknown: Yes Medications and Allergies Loratadine [Claritin] 10 mg PO DAILY 09/10/17 [History] Albuterol Sulfate [Ventolin Hfa] 2 puff IH Q6H PRN 09/20/17 [History] Fluticasone/Salmeterol [Advair 250-50 Diskus] 1 puff IH BID 09/20/17 [History] Omeprazole 20 mg PO DAILY 09/20/17 [History] Levofloxacin [Levaquin] 750 mg PO DAILY #7 tablet 09/28/17 [Rx] OxyCODONE/APAP 10/325 [Percocet 10/325 MG] 1 each PO Q4HR PRN #14 tablet [Rx] metroNIDAZOLE [Flagyl] 500 mg PO TID #21 tablet 09/28/17 [Rx] 3 Allergy/AdvReac Type Severity Reaction Status Date / Time No Known Allergies Allergy Verified 10/03/17 10:53 Review of Systems All systems PM: reviewed and no additional remarkable complaints except as stated All systems PM: A 10-system review of systems was performed and is negative for pertinent findings except as documented above in the HPI. General Surgery Exam Initial Vital Signs Temp Pulse Resp BP Pulse Ox 97.6 F 95 16 143/86 98 10/03/17 10:48 10/03/17 10:48 10/03/17 10:48 10/03/17 10:48 10/03/17 10:48 - General physical appearance no distress, moderate pain - Eyes normal ocular movement - ENT normal nares, normal mucosa, atraumatic, normocephalic - Neck no masses, no bruits, trachea midline - Respiratory other (Decreased course breath sounds) - Cardiovascular Cardiovascular exam: Present: RRR, 15, 16 - Abdomen Abdomen general surgery: Present: bowel sounds present, soft, tender Abdominal Tenderness: Present: RLQ, LLQ Hernia: Present: none - Integumentary Integumentary general surgery: Present: warm and dry, no abnormal pigmentation - Neurologic Present: CN 2-12 grossly intact, normal coordination, normal sensation - Musculoskeletal Present: normal gait, normal posture - Psychiatric Psychiatric general surgery: Present: A&Ox3, appropriate, oriented to person, oriented to place, oriented to time, speech is normal, memory intact Results - Labs 10/03/17 11:52 10/03/17 11:52 Abnormal lab results WBC 14.4 K/mcL (4.3-11.1) H 10/03/17 11:52 Plt Count 431 K/mcL (140-400) H 10/03/17 11:52 MPV 8.7 fL (9.4-12.4) L 10/03/17 11:52 Neutrophils # 9.6 K/mcL (1.6-8.9) H 10/03/17 11:52 Monocytes # 1.5 K/mcL (0.0-1.3) H 10/03/17 11:52 Eosinophils # 0.7 K/mcL (0.0-0.6) H 10/03/17 11:52 Sodium 135 mEq/L (136-145) L 10/03/17 11:52 Glucose 117 mg/dL (70-105) H 10/03/17 11:52 POC Glucose 96 (58-89) H 10/04/17 05:31 AST 11 Units/L (13-39) L 10/03/17 11:52 Albumin 3.3 g/dL (3.5-5.7) L 10/03/17 11:52 Globulin 3.8 g/dL (2.4-3.5) H 10/03/17 11:52 Albumin/Globulin Ratio 0.9 (1.1-2.2) L 10/03/17 11:52 Amylase 27 Units/L (29-103) L 10/03/17 11:52 All other labs normal. - Imaging Additional studies: Abdomen/Pelvis CT 01/17/18 13:30 IMPRESSION: Multiloculated fluid collection with internal gas to the anterior upper pelvis/lower abdomen compatible with abscess. This appears enlarged from prior exam 09/27/2017. There continues to be some loculated free air in the upper pelvis paramidline towards the right, similar to prior exam. Additional scattered mild free air to the upper abdomen on prior exam appears to have resolved. No new or worsening intraperitoneal free air is seen. Redemonstration of multiple abnormal small bowel loops to the mid to lower abdomen anteriorly which demonstrate wall thickening, likely reflecting nonspecific enteritis, possibly secondary to the abscess and similar to prior exam. No evidence for obstruction. Colonic diverticulosis without evidence for acute diverticulitis. Stable nonobstructing bilateral renal stones. Emphysema. D/ / 10/03/2017 15:51:58 Phan Morales MD / lena Interpreting Provider: Phan Morales MD
[2017-10-04] MEDS ORDERED: *HR* Promethazine 25 MG/ML VIAL IVP PRN (09:18)
[2017-10-04] MEDS: Budesonide/Formoterol 80/4.5 MDI IH SCH ×2 (10:56→22:13)
[2017-10-04] MEDS: Ipratropium/Albuterol Neb 3 ML IH SCH ×3 (10:56→22:13)
[2017-10-04] MEDS: Ondansetron 4 MG/2 ML VIAL IVP SCH ×3 (12:45→19:37)
[2017-10-04] MEDS ORDERED: MetroNIDAZOLE 500 MG/100 ML 500 MG/100 ML BAG IVPB SCH (16:00)
[2017-10-04] MEDS: *HR* Heparin 5,000 UNIT/ML VIAL SQ SCH (17:22)
[2017-10-04] MEDS: Pantoprazole 40 MG VIAL IVP SCH (17:22)
[2017-10-05] MEDS: Piperacillin/Tazobactam 3.375 GM/200 ML BAG IVPB SCH ×4 (00:36→22:51)
[2017-10-05] MEDS: *HR* HYDROmorphone 2 MG/ML SYRINGE IVP PRN ×5 (00:37→22:50)
[2017-10-05] MEDS: Ondansetron 4 MG/2 ML VIAL IVP SCH ×6 (00:37→20:01)
[2017-10-05] MEDS: Ipratropium/Albuterol Neb 3 ML IH SCH ×4 (04:02→23:21)
[2017-10-05] MEDS: *HR* Heparin 5,000 UNIT/ML VIAL SQ SCH ×2 (05:02→18:24)
[2017-10-05] MEDS: Pantoprazole 40 MG VIAL IVP SCH ×2 (05:03→18:24)
[2017-10-05 05:28] LABS: Basophils # 0.1 K/mcL (0.0-0.2); Basophils % 0.8 %; Eosinophils # 0.8 K/mcL (0.0-0.6); Eosinophils % 7.5 %; Hematocrit 36.7 % (37.5-50.1); Hemoglobin 11.8 g/dL (12.9-16.9); Immature Granulocytes % 0.5 % (0-4); Lymphocytes % 28.3 %; Mean Corpuscular HGB Conc 32.2 g/dL (31.6-35.5); Mean Platelet Volume 9.1 fL (9.4-12.4); Monocytes # 1.2 K/mcL (0.0-1.3); Neutrophils # 5.6 K/mcL (1.6-8.9); Platelet Count 385 K/mcL (140-400); Red Blood Count 4.22 M/mcL (4.19-5.50); Segmented Neutrophils % 51.9 %
[2017-10-05 05:33] LABS: INR 1.5; Prothrombin Time 16.5 Seconds (9.4-12.1)
[2017-10-05 05:36] LABS: Activated Partial Thrombo Time 28.5 Seconds (26.0-36.0)
[2017-10-05 06:08] LABS: Alanine Aminotransferase 6 Units/L (7-52); Albumin 2.7 g/dL (3.5-5.7); Albumin/Globulin Ratio 0.9 (1.1-2.2); Alkaline Phosphatase 45 Units/L (34-104); Aspartate Amino Transferase 10 Units/L (13-39); BUN/Creatinine Ratio 7 (6-26); Bilirubin,Direct 0.1 mg/dL (0.0-0.2); Bilirubin,Indirect 0.2 mg/dL (0.0-1.2); Bilirubin,Total 0.3 mg/dL (0.3-1.0); Blood Urea Nitrogen 9 mg/dL (6-20); Calcium 8.1 mg/dL (8.6-10.3); Carbon Dioxide 28 mEq/L (23-29); Chloride 108 mEq/L (98-107); Glucose 96 mg/dL (70-105); Magnesium 1.8 mg/dL (1.6-2.6); Osmolality,Calculated 289 (280-300); Phosphorous 3.4 mg/dL (2.7-4.5); Potassium 3.6 mEq/L (3.5-5.1); Sodium 140 mEq/L (136-145); Total Protein 5.7 g/dL (6.4-8.9); eGFR For African Americans > 60 (> 60); eGFR For Non-African Americans 59 (> 60)
[2017-10-05] MEDS: 0.9 % Sodium Chloride 1,000 ML IVC SCH ×2 (06:24→18:32)
[2017-10-05] MEDS: Nicotine 7 MG PATCH.TD24 TD SCH (11:22)
--- NOTE | 2017-10-05 11:39 | General Surgery Progress Note ---
Date of Encounter: 10/05/17 Time of Encounter: 11:20 - Assessment and Plan (1) Perforated diverticulum of large intestine Current Visit: No Status: Acute Continue with conservative management: IV antibiotics- Zosyn (day 2) Advance to low residue diet Protein supplements TID with meals Supportive care and pain control Ambulate hallways TID with assistance IS every 1 hour while awake PPI therapy daily May shower daily Plan for interval sigmoid resection in the next 4-[address] Armstrong (2) Intra-abdominal abscess Current Visit: Yes Status: Acute Continue with conservative management: IR consulted and unable to safely drain the fluid collections (Largest loculation measures approximately 2.7 x 3.4 x 2.7 cm. This is located towards the midline anteriorly. The 2nd largest loculation is noted anteriorly to the right adjacent to this loculation and measures 2.7 x 2.7 x 2.6 cm.) IV antibiotics- Zosyn (day 2) (3) Moderate protein-calorie malnutrition Current Visit: Yes Status: Acute Advance to low residue diet Protein supplements TID with meals (4) COPD (chronic obstructive pulmonary disease) Current Visit: Yes Status: Chronic Duonebs scheduled Continue home medication regimen IS every 1 hour while awake Smoking cessation education Qualifiers: COPD type: emphysema Emphysema type: unspecified Qualified Code(s): J43.9 - Emphysema, unspecified (5) Tobacco abuse Current Visit: No Status: Chronic Duonebs scheduled Continue home medication regimen IS every 1 hour while awake Smoking cessation education Nicotine patch daily (6) DVT prophylaxis Current Visit: Yes Status: Acute Heparin 5,000 units SQ twice daily for DVT prophylaxis Ambulate hallways TID with assistance EPCDs to bilateral lower extremities while lying in bed Subjective Patient reports: no new complaints, feels better, still having pain, pain is less, tolerating liquids well, voiding w/o difficulty, flatus, bowel movement, afebrile Objective Vital Signs - Last 8 Hours Temp Pulse Resp BP Pulse Ox 10/05/17 09:45 95 10/05/17 06:25 97.5 F L 63 18 116/73 95 10/05/17 05:18 97.9 F 70 14 102/64 94 Intake and Output 10/04/17 10/05/17 10/05/17 23:59 07:59 15:59 Intake Total 1320 / 1320 1200 / 1200 Output Total 600 / 600 600 / 600 Balance 720 / 720 600 / 600 Intake: IV Fluids 1200 / 1200 1200 / 1200 0.9 % Sodium Chloride 1,000 ML 1000 / 1000 1000 / 1000 @ 100 mls/hr IVC .Q10H [facility] Rx#: [id number] Zosyn Premix 3.375 GM/200 ML 3. 200 / 200 200 / 200 375 gm In 200 ml @ 50 mls/hr IVPB Q8HR [facility] Rx#:[id number] Oral 120 / 120 0 / 0 Output: Urine 600 / 600 600 / 600 Other: Weight 70.01 kg Blood Glucose* 96 Patient Weight 10/05/17 23:59 Weight 70.01 kg - General physical appearance well developed, no distress, moderate pain (improving) - Eyes normal ocular movement - ENT normal mucosa, atraumatic, normocephalic - Neck Neck exam: trachea midline - Respiratory normal respiratory effort, clear to auscultation - Cardiovascular Cardiovascular exam: Present: RRR - Abdomen Abdomen: Present: bowel sounds present, soft, tender (moderately tender ( improving)) Abdominal Tenderness: RLQ, suprapubic - Neurologic CN 2-12 grossly intact - Musculoskeletal normal gait, normal posture - Psychiatric oriented to time, oriented to person, oriented to place, speech is normal, memory intact - Labs 10/05/17 04:58 10/05/17 04:58 Diabetes panel 10/05/17 Range/Units 04:58 Sodium 140 (136-145) mEq/L Potassium 3.6 (3.5-5.1) mEq/L Chloride 108 H (98-107) mEq/L Carbon Dioxide 28 (23-29) mEq/L BUN 9 (6-20) mg/dL Creatinine 1.25 (0.70-1.30) mg/dL Glucose 96 (70-105) mg/dL Calcium 8.1 L (8.6-10.3) mg/dL AST 10 L (13-39) Units/L ALT 6 L (7-52) Units/L Alkaline Phosphatase 45 (34-104) Units/L Albumin 2.7 L (3.5-5.7) g/dL Calcium panel 10/05/17 Range/Units 04:58 Calcium 8.1 L (8.6-10.3) mg/dL Phosphorus 3.4 (2.7-4.5) mg/dL Albumin 2.7 L (3.5-5.7) g/dL Pituitary panel 10/05/17 Range/Units 04:58 Sodium 140 (136-145) mEq/L Potassium 3.6 (3.5-5.1) mEq/L Chloride 108 H (98-107) mEq/L Carbon Dioxide 28 (23-29) mEq/L BUN 9 (6-20) mg/dL Creatinine 1.25 (0.70-1.30) mg/dL Glucose 96 (70-105) mg/dL Calcium 8.1 L (8.6-10.3) mg/dL Adrenal panel 10/05/17 Range/Units 04:58 Sodium 140 (136-145) mEq/L Potassium 3.6 (3.5-5.1) mEq/L Chloride 108 H (98-107) mEq/L Carbon Dioxide 28 (23-29) mEq/L BUN 9 (6-20) mg/dL Creatinine 1.25 (0.70-1.30) mg/dL Glucose 96 (70-105) mg/dL Calcium 8.1 L (8.6-10.3) mg/dL Total Bilirubin 0.3 (0.3-1.0) mg/dL AST 10 L (13-39) Units/L ALT 6 L (7-52) Units/L Alkaline Phosphatase 45 (34-104) Units/L Albumin 2.7 L (3.5-5.7) g/dL Consult Discharge Plan - Plan Referrals: Gisele Arreaga, BERRY PLANTER [Primary Care Provider] - - Attending Attestation For this encounter, I have reviewed the FERRYBOAT HELPER or PA documentation, treatment plan, and medical decision making; and I have had face to face time with this patient.
[2017-10-05] MEDS: Budesonide/Formoterol 80/4.5 MDI IH SCH ×2 (13:13→23:21)
[2017-10-06] MEDS: *HR* HYDROmorphone 2 MG/ML SYRINGE IVP PRN ×5 (03:16→23:45)
[2017-10-06] MEDS: 0.9 % Sodium Chloride 1,000 ML IVC SCH ×3 (03:16→23:49)
[2017-10-06] MEDS: Ondansetron 4 MG/2 ML VIAL IVP SCH ×7 (04:13→23:45)
[2017-10-06] MEDS: Ipratropium/Albuterol Neb 3 ML IH SCH ×4 (04:58→16:30)
[2017-10-06] MEDS: Pantoprazole 40 MG VIAL IVP SCH ×2 (05:04→16:57)
[2017-10-06] MEDS: *HR* Heparin 5,000 UNIT/ML VIAL SQ SCH ×2 (05:04→17:01)
[2017-10-06] MEDS: Nicotine 7 MG PATCH.TD24 TD SCH (09:33)
[2017-10-06] MEDS: Piperacillin/Tazobactam 3.375 GM/200 ML BAG IVPB SCH ×3 (09:34→23:45)
[2017-10-06] MEDS: Budesonide/Formoterol 80/4.5 MDI IH SCH ×2 (09:45→19:57)
--- NOTE | 2017-10-06 10:30 | General Surgery Progress Note ---
<Bruce Dela Cruz Ronda - Last Filed: 10/06/17 11:28> Date of Encounter: 10/06/17 Objective Vital Signs - Last 8 Hours Temp Pulse Resp BP Pulse Ox 10/06/17 10:53 98.0 F 60 16 126/70 93 10/06/17 06:31 98.1 F 60 14 129/68 95 Intake and Output 10/05/17 10/06/17 10/06/17 23:59 07:59 15:59 Intake Total 1700 / 1700 1300 / 1300 Output Total 300 / 300 550 / 550 350 / 350 Balance 1400 / 1400 750 / 750 -350 / -350 Intake: IV Fluids 1200 / 1200 1200 / 1200 0.9 % Sodium Chloride 1,000 ML 1000 / 1000 1000 / 1000 @ 100 mls/hr IVC .Q10H [facility] Rx#: [id number] Zosyn Premix 3.375 GM/200 ML 3. 200 / 200 200 / 200 375 gm In 200 ml @ 50 mls/hr IVPB Q8HR [facility] Rx#:[id number] Oral 500 / 500 100 / 100 Output: Urine 300 / 300 550 / 550 350 / 350 Other: Weight 71.1 kg Blood Glucose* 164 Patient Weight 10/06/17 23:59 Weight 71.1 kg - Labs 10/05/17 04:58 10/05/17 04:58 Consult Discharge Plan - Plan Referrals: Gisele Arreaga, MARLEN [Primary Care Provider] - - Attending Attestation I examined this patient and my medical decision-making was reviewed with the Resident Physician. I agree with the documented findings, disposition and treatment plan as described except to the extent set forth below. Noted mild improvement in abdominal pain. No nausea or vomiting. On IV abx. Mild pain to palpation in the lower abdomen right > left. Continue with current diet, IV abx. <Idalia Davis - Last Filed: 10/06/17 14:26> Date of Encounter: 10/06/17 Time of Encounter: 10:28 - Assessment and Plan (1) Perforated diverticulum of large intestine Current Visit: No Status: Acute 57 year old male with a PMHx of COPD, asthma, pneumonia, moderate protein calorie malnutrition, diverticulitis with perforation presented with RLQ pain Continue with conservative management: IV antibiotics- Zosyn (day 3) Advance to low residue diet Protein supplements TID with meals Supportive care and pain control Ambulate hallways TID with assistance IS every 1 hour while awake PPI therapy daily May shower daily Plan for interval sigmoid resection in the next 4-[address] Armstrong (2) Intra-abdominal abscess Current Visit: Yes Status: Acute CT demonstrated two locuations midline anteriorly (2.7 x 3.4 x 2.7 cm) and 2nd right adjacent 2.7 x 2.7 x 2.6 cm Continue with conservative management: IV antibiotics- Zosyn (day 3) (3) COPD (chronic obstructive pulmonary disease) Current Visit: Yes Status: Chronic Duonebs scheduled Continue home medication regimen IS every 1 hour while awake Smoking cessation education Qualifiers: COPD type: unspecified COPD Qualified Code(s): J44.9 - Chronic obstructive pulmonary disease, unspecified (4) Moderate protein-calorie malnutrition Current Visit: Yes Status: Acute Advance to low residue diet Protein supplements TID with meals (5) Tobacco abuse Current Visit: No Status: Chronic Nicotine patch daily (6) DVT prophylaxis Current Visit: Yes Status: Acute Heparin 5,000 units SQ twice daily for DVT prophylaxis Ambulate hallways TID with assistance EPCDs to bilateral lower extremities while lying in bed Subjective Patient reports: no new complaints, feels better, voiding w/o difficulty, no flatus, bowel movement Objective Vital Signs - Last 8 Hours Temp Pulse Resp BP Pulse Ox 10/06/17 06:31 98.1 F 60 14 129/68 95 10/06/17 03:25 98.1 F 64 18 122/70 93 Intake and Output 10/05/17 10/06/17 10/06/17 23:59 07:59 15:59 Intake Total 1700 / 1700 1300 / 1300 Output Total 300 / 300 550 / 550 Balance 1400 / 1400 750 / 750 Intake: IV Fluids 1200 / 1200 1200 / 1200 0.9 % Sodium Chloride 1,000 ML 1000 / 1000 1000 / 1000 @ 100 mls/hr IVC .Q10H [facility] Rx#: [id number] Zosyn Premix 3.375 GM/200 ML 3. 200 / 200 200 / 200 375 gm In 200 ml @ 50 mls/hr IVPB Q8HR [facility] Rx#:[id number] Oral 500 / 500 100 / 100 Output: Urine 300 / 300 550 / 550 Other: Weight 71.1 kg Blood Glucose* 164 Patient Weight 10/06/17 23:59 Weight 71.1 kg - General physical appearance no distress - Eyes normal ocular movement - ENT poor care home - Respiratory normal expansion, normal respiratory effort wheezing: bilateral - Cardiovascular Cardiovascular exam: Present: RRR. Absent: distant heart sounds - Abdomen Abdomen: Present: bowel sounds present, soft, tender (mild tenderenss on RLQ ) - Psychiatric oriented to time, oriented to person, oriented to place - Labs 10/05/17 04:58 10/05/17 04:58
[2017-10-07] MEDS: Ondansetron 4 MG/2 ML VIAL IVP SCH ×6 (03:32→23:21)
[2017-10-07] MEDS: Ipratropium/Albuterol Neb 3 ML IH SCH ×4 (03:38→21:44)
[2017-10-07] MEDS: Pantoprazole 40 MG VIAL IVP SCH ×2 (05:32→17:32)
[2017-10-07] MEDS: *HR* Heparin 5,000 UNIT/ML VIAL SQ SCH ×2 (05:32→17:32)
[2017-10-07] MEDS: *HR* HYDROmorphone 2 MG/ML SYRINGE IVP PRN ×6 (05:43→22:43)
[2017-10-07] MEDS: Budesonide/Formoterol 80/4.5 MDI IH SCH ×2 (09:35→21:44)
[2017-10-07] MEDS: 0.9 % Sodium Chloride 1,000 ML IVC SCH (09:55)
[2017-10-07] MEDS: Piperacillin/Tazobactam 3.375 GM/200 ML BAG IVPB SCH ×3 (09:56→23:19)
[2017-10-07] MEDS: Nicotine 7 MG PATCH.TD24 TD SCH (09:57)
--- NOTE | 2017-10-07 10:33 | General Surgery Progress Note ---
<RyanIdalia - Last Filed: 10/07/17 13:10> Date of Encounter: 10/07/17 Time of Encounter: 10:32 - Assessment and Plan (1) Perforated diverticulum of large intestine Current Visit: No Status: Acute 57 year old male with a PMHx of COPD, asthma, pneumonia, moderate protein calorie malnutrition, diverticulitis with perforation presented with RLQ pain Continue with conservative management: IV antibiotics- Zosyn (day 4) Continue low residue diet Protein supplements TID with meals Supportive care and pain control Ambulate hallways TID with assistance IS every 1 hour while awake PPI therapy daily May shower daily Plan for interval sigmoid resection in the next 4-[address] Armstrong (2) Intra-abdominal abscess Current Visit: Yes Status: Acute CT demonstrated two locuations midline anteriorly (2.7 x 3.4 x 2.7 cm) and 2nd right adjacent 2.7 x 2.7 x 2.6 cm Continue with conservative management: IV antibiotics- Zosyn (day 4) (3) COPD (chronic obstructive pulmonary disease) Current Visit: Yes Status: Chronic Duonebs scheduled Continue home medication regimen IS every 1 hour while awake Smoking cessation education Qualifiers: COPD type: unspecified COPD Qualified Code(s): J44.9 - Chronic obstructive pulmonary disease, unspecified (4) Moderate protein-calorie malnutrition Current Visit: Yes Status: Acute Continue low residue diet Protein supplements TID with meals (5) Tobacco abuse Current Visit: No Status: Chronic Nicotine patch daily (6) DVT prophylaxis Current Visit: Yes Status: Acute Heparin 5,000 units SQ twice daily for DVT prophylaxis Ambulate hallways TID with assistance EPCDs to bilateral lower extremities while lying in bed Subjective Patient reports: no new complaints, feels better, still having pain, voiding w/ o difficulty, no flatus, bowel movement (2 soft BM this AM.), afebrile Objective Vital Signs - Last 8 Hours Temp Pulse Resp BP Pulse Ox 10/07/17 10:20 97.8 F 66 14 140/78 96 10/07/17 07:24 98.1 F 63 14 139/77 93 10/07/17 03:55 97.9 F 72 16 132/68 94 Intake and Output 10/06/17 10/07/17 10/07/17 23:59 07:59 15:59 Intake Total 1440 / 1440 200 / 200 1000 / 1000 Output Total 1325 / 1325 1600 / 1600 400 / 400 Balance 115 / 115 -1400 / -1400 600 / 600 Intake: IV Fluids 1200 / 1200 200 / 200 1000 / 1000 0.9 % Sodium Chloride 1,000 ML 1000 / 1000 1000 / 1000 @ 100 mls/hr IVC .Q10H [facility] Rx#: [id number] Zosyn Premix 3.375 GM/200 ML 3. 200 / 200 200 / 200 375 gm In 200 ml @ 50 mls/hr IVPB Q8HR [facility] Rx#:[id number] Oral 240 / 240 0 / 0 Output: Urine 1325 / 1325 1600 / 1600 400 / 400 Other: Meal Dinner Percent of Meal Consumed 100% - General physical appearance no distress - Eyes normal ocular movement - Respiratory normal expansion, normal respiratory effort, clear to auscultation - Cardiovascular Cardiovascular exam: Present: RRR. Absent: murmurs - Abdomen Abdomen: Present: bowel sounds present, soft, tender (mild on palpation ) - Psychiatric oriented to time, oriented to person, oriented to place, speech is normal - Labs 10/05/17 04:58 10/05/17 04:58 Consult Discharge Plan - Plan Referrals: Gisele Arreaga, [employer]ATIONS MANAGER [Primary Care Provider] - <Bruce Dela Cruz - Last Filed: 10/07/17 17:22> Date of Encounter: 10/07/17 Objective Vital Signs - Last 8 Hours Temp Pulse Resp BP Pulse Ox 10/07/17 15:09 98.0 F 66 14 148/78 94 10/07/17 10:20 97.8 F 66 14 140/78 96 Intake and Output 10/07/17 10/07/17 10/07/17 07:59 15:59 23:59 Intake Total 200 / 200 1600 / 1600 Output Total 1600 / 1600 1075 / 1075 Balance -1400 / -1400 525 / 525 Intake: IV Fluids 200 / 200 1000 / 1000 0.9 % Sodium Chloride 1,000 ML 1000 / 1000 @ 100 mls/hr IVC .Q10H [facility] Rx#: [id number] Zosyn Premix 3.375 GM/200 ML 3. 200 / 200 375 gm In 200 ml @ 50 mls/hr IVPB Q8HR [facility] Rx#:[id number] Oral 0 / 0 600 / 600 Output: Urine 1600 / 1600 1075 / 1075 Other: Meal Lunch Percent of Meal Consumed 75% - Labs 10/05/17 04:58 10/05/17 04:58 - Attending Attestation I examined this patient and my medical decision-making was reviewed with the Resident Physician. I agree with the documented findings, disposition and treatment plan as described except to the extent set forth below. I reviewed the above assessment and evaluation and agree with the above plan. Continue with IV antibiotics. Will Hep-Lock IV fluids. To consider transition to oral antibiotics and possible discharge within the next 24 hours.
[2017-10-08] MEDS: Ondansetron 4 MG/2 ML VIAL IVP SCH ×3 (04:04→12:04)
[2017-10-08] MEDS: Ipratropium/Albuterol Neb 3 ML IH SCH ×2 (04:25→10:17)
[2017-10-08] MEDS: *HR* HYDROmorphone 2 MG/ML SYRINGE IVP PRN (04:57)
[2017-10-08] MEDS: Pantoprazole 40 MG VIAL IVP SCH (05:02)
[2017-10-08] MEDS: *HR* Heparin 5,000 UNIT/ML VIAL SQ SCH (05:02)
[2017-10-08] MEDS: Piperacillin/Tazobactam 3.375 GM/200 ML BAG IVPB SCH (09:11)
[2017-10-08] MEDS: Nicotine 7 MG PATCH.TD24 TD SCH (09:12)
[2017-10-08 10:16] VITALS: BP 149/70
[2017-10-08] MEDS: Budesonide/Formoterol 80/4.5 MDI IH SCH (10:17)
--- NOTE | 2017-10-08 11:21 | Discharge Summary ---
Date of Encounter: 10/08/17 Time of Encounter: 11:00 - Discharge Diagnosis (1) Perforated diverticulum of large intestine Priority: Primary Status: Acute (2) Intra-abdominal abscess Priority: Secondary Status: Acute (3) Moderate protein-calorie malnutrition Priority: Secondary Status: Acute (4) COPD (chronic obstructive pulmonary disease) Priority: Secondary Status: Chronic Qualifiers: COPD type: unspecified COPD Qualified Code(s): J44.9 - Chronic obstructive pulmonary disease, unspecified (5) Tobacco abuse Priority: Secondary Status: Chronic - Discharge Medications Prescriptions: OxyCODONE/APAP 5/325 [Percocet 5/325 MG] 1 each PO Q6HR PRN #20 tablet PRN Reason: Pain Amoxicillin/Clavulanate [Augmentin] 875 mg PO BIDWM #20 tablet Docusate [Colace] 100 mg PO BID #30 capsule Home Medications: Loratadine [Claritin] 10 mg PO DAILY 09/10/17 [History] Albuterol Sulfate [Ventolin Hfa] 2 puff IH Q6H PRN 09/20/17 [History] Fluticasone/Salmeterol [Advair 250-50 Diskus] 1 puff IH BID 09/20/17 [History] Omeprazole 20 mg PO DAILY 09/20/17 [History] Amoxicillin/Clavulanate [Augmentin] 875 mg PO BIDWM #20 tablet 10/08/17 [Rx] Docusate [Colace] 100 mg PO BID #30 capsule 10/08/17 [Rx] OxyCODONE/APAP 5/325 [Percocet 5/325 MG] 1 each PO Q6HR PRN #20 tablet 10/08/17 [Rx] Allergies/Adverse Reactions: 3 Allergy/AdvReac Type Severity Reaction Status Date / Time No Known Allergies Allergy Verified 10/03/17 10:53 General Surgery Exam Initial Vital Signs Temp Pulse Resp BP Pulse Ox 97.6 F 95 16 143/86 98 10/03/17 10:48 10/03/17 10:48 10/03/17 10:48 10/03/17 10:48 10/03/17 10:48 - General physical appearance well developed, no distress - Eyes normal ocular movement - ENT normal mucosa, atraumatic, normocephalic - Neck trachea midline - Respiratory normal respiratory effort, clear to auscultation - Cardiovascular Cardiovascular exam: Present: RRR - Abdomen Abdomen general surgery: Present: bowel sounds present, soft, tender (Minimal, right lower quadrant) - Integumentary Integumentary general surgery: Present: warm and dry - Neurologic Present: CN 2-12 grossly intact - Musculoskeletal Present: normal gait, normal posture - Psychiatric Psychiatric general surgery: Present: appropriate, oriented to person, oriented to place, oriented to time, speech is normal, memory intact Date of admission: 10/03/17 22:35 Primary care physician: Gisele Arreaga Consults: 10/04/17 09:12 Consult to Interventional Radiology [CONS] Routine Consulting Provider: Radiology Interventional Cols Reason for Consult: Intra-abdominal abscess, possible drain placement; spoke with IR who stated the interventional radiologist would return call to advise of possibility of drain placement. Time Notified: 08:45 Call Completed: Yes Discharging clinician: Qamar Armstrong (Kimberley Neal) Anticipated date of discharge: 10/08/17 - Patient Status Disposition: Home, Self-Care Condition: Good Functional capacity at discharge: independent ambulation Overall status at discharge: patient is progressing back to baseline - Discharge Instructions Instructions: Low Fiber Diet (GEN) Follow Up With: Gisele Arreaga CNP [Primary Care Provider] - Damari Neal CNP [Advanced Practice Nurse] - 10/15/17 2:30 pm (hospital follow-up) - Diet and Activity Activity: increase activity as tolerated Diet: other (Low fiber diet) - Hospital Course Hospital course: Mr. Giraldo is a 57 year old male who presented to the hospital with increasing abdominal pain and low-grade fever of 100.4. He does have a recent history of diverticulitis with perforation. He was initiated on conservative measures including bowel rest, IV antibiotics, pain control. The patient did have a CAT scan evaluation which showed no change and the pelvic fluid collections from his previous CT. The plan of care was discussed at length with the patient and he is in agreement to continue with conservative measures. The patient's symptoms did improve with these treatments. He was restarted on a diet and is currently tolerating a low fiber diet without difficulty. His vital signs are stable he is afebrile. His pain has almost completely resolved. He is moving his bowels without difficulty. His white blood cell count has returned to normal. We will begin discharge planning to home and transition the patient to oral antibiotics. We will plan for outpatient follow-up in 1 week's time. The goal will be to plan for an interval sigmoid colon resection with Dr. Armstrong in the next 4-6 weeks. - Time Spent with Patient Total time spent providing and/or coordinating discharge services: Less than 30 minutes
[2017-10-08] MEDS ORDERED: *HR* OxyCODONE/APAP 5/325 TABLET PO ONE (11:54)
== END 2017-10-08 13:10 | disposition home or self-care (01) | DRG 244 ==
LOC: 3ANU 10:47 → EMEROO 10:47 → 3ANU 18:25 → SUATTDRO 22:35
PROVIDERS: ADMIT Surgery; ATTEND Surgery

== ENCOUNTER 2017-10-10 09:14 | Inpatient (IN) ==
--- NOTE | 2017-10-10 11:18 | General Surg History&Physical ---
Date of Encounter: 10/10/17 Time of Encounter: 11:00 Assessment and Plan (1) Perforated diverticulum of large intestine Current Visit: No Status: Acute The assessment and plan as outlined above was discussed with the patient and/or family members who expressed understanding and agreement. All questions were answered. Clear liquid diet NPO after midnight Bowel prep- Miralax and Gatorade, dulcolax IV antibiotics- Zosyn IV fluids Supportive care and pain control Incentive spirometer every 1 hour while awake PPI therapy daily Ambulatory hallways 3 times a day Plan for robotic sigmoid colon resection with possible colostomy with Dr. Armstrong in the next 24 hours (2) Intra-abdominal abscess Current Visit: No Status: Acute The assessment and plan as outlined above was discussed with the patient and/or family members who expressed understanding and agreement. All questions were answered. IV antibiotics Plan for robotic sigmoid colon resection with possible colostomy with Dr. Armstrong in the next 24 hours (3) COPD (chronic obstructive pulmonary disease) Current Visit: No Status: Chronic The assessment and plan as outlined above was discussed with the patient and/or family members who expressed understanding and agreement. All questions were answered. Labs every 6 hours scheduled Incentive spirometer every 1 hour while awake Smoking cessation education Qualifiers: COPD type: unspecified COPD Qualified Code(s): J44.9 - Chronic obstructive pulmonary disease, unspecified (4) Tobacco abuse Current Visit: No Status: Chronic The assessment and plan as outlined above was discussed with the patient and/or family members who expressed understanding and agreement. All questions were answered. Smoking cessation education Nicotine patch when necessary for nicotine cravings (5) DVT prophylaxis Current Visit: No Status: Acute The assessment and plan as outlined above was discussed with the patient and/or family members who expressed understanding and agreement. All questions were answered. Heparin 5000 units subcutaneous twice daily for DVT prophylaxis Ambulatory hallways 3 times a day with Assistance History of Present Illness Chief complaint: Right sided abdominal pain HPI: Mr. Giraldo is a 57 year old male who is well known to the surgery practice. He has been admitted to the hospital on multiple occasions in the past weeks for treatment of diverticulitis with perforation and fluid collections. The patient was initially admitted on 09/20/2017 and was treated with conservative measures including IV antibiotics, bowel rest, supportive care. The patient did improve clinically and was discharged on 09/28/2017. He returned to the hospital on 10/03/2017 with worsening abdominal discomfort. The patient was continued on conservative measures at that time including IV antibiotics and supportive care. He was discharged on 10/08/2017. The patient presented to the office on 10/09/2017 and was seen by Dr. Armstrong. He states that his right- sided abdominal discomfort has been slightly increased since discharged 24 hours prior. The patient reports that he is taking his oral antibiotics which includes Augmentin 875 mg twice daily. It was felt at the time of visit that the patient has ultimately failed conservative measures and we will need to proceed with surgical intervention at this time. The patient states that his right-sided abdominal discomfort is slightly increased today. He denies any fevers or chills. He reports that he is tolerating his diet and has a normal appetite. He reports that he is passing flatus. Denies any constipation or diarrhea at this time. He denies any nausea or vomiting. He is voiding without difficulty. He denies any shortness of breath or chest pain. The patient will be admitted to the hospital and we will plan for surgical intervention in the next 24 hours. Past Med Surg Social Fam HX - Past Medical History Source: patient, old records reviewed Medical history: asthma, COPD, GERD, other Psychiatric history: no psych history - Past Surgical History Surgical History: no surgical history - Social History Smoking Status: Current every day smoker Smokeless Tobacco Status: No Alcohol use: none Drug use: marijuana Current living situation: Home - Independent Activity Level: Independent ambulation - Family History Mother History Unknown: Yes Father History Unknown: Yes Medications and Allergies Loratadine [Claritin] 10 mg PO DAILY 09/10/17 [History] Albuterol Sulfate [Ventolin Hfa] 2 puff IH Q6H PRN 09/20/17 [History] Fluticasone/Salmeterol [Advair 250-50 Diskus] 1 puff IH BID 09/20/17 [History] Omeprazole 20 mg PO DAILY 09/20/17 [History] Amoxicillin/Clavulanate [Augmentin] 875 mg PO BIDWM #20 tablet 10/08/17 [Rx] Docusate [Colace] 100 mg PO BID #30 capsule 10/08/17 [Rx] OxyCODONE/APAP 5/325 [Percocet 5/325 MG] 1 each PO Q6HR PRN #20 tablet 10/08/17 [Rx] 3 Allergy/AdvReac Type Severity Reaction Status Date / Time No Known Allergies Allergy Verified 10/03/17 10:53 Review of Systems All systems PM: reviewed and no additional remarkable complaints except as stated (in the HPI) All systems PM: A 10-system review of systems was performed and is negative for pertinent findings except as documented above in the HPI. General Surgery Exam - General physical appearance well developed, well nourished, no distress, moderate pain - Eyes PERRL, normal ocular movement - ENT normal mucosa, atraumatic, normocephalic - Neck trachea midline - Respiratory normal respiratory effort, clear to auscultation - Cardiovascular Cardiovascular exam: Present: RRR - Abdomen Abdomen general surgery: Present: bowel sounds present, soft, tender Abdominal Tenderness: Present: RLQ - Integumentary Integumentary general surgery: Present: warm and dry - Neurologic Present: CN 2-12 grossly intact - Musculoskeletal Present: normal gait, normal posture - Psychiatric Psychiatric general surgery: Present: A&Ox3, appropriate, oriented to person, oriented to place, oriented to time, speech is normal, memory intact Results - Labs All other labs normal. - Attending Attestation For this encounter, I have reviewed the DIVISION ORDER TECHNICIAN or PA documentation, treatment plan, and medical decision making; and I have had face to face time with this patient.
[2017-10-10] MEDS ORDERED: Naloxone 0.4 MG/ML INJ IVP PRN (11:31)
[2017-10-10] MEDS ORDERED: Ondansetron 4 MG/2 ML VIAL IVP PRN (11:31)
[2017-10-10] MEDS ORDERED: Polyethylene Glycol 3350 255 GM POWDER PO ONE (11:33)
[2017-10-10] MEDS ORDERED: Acetaminophen 325 MG TABLET PO PRN (11:38)
[2017-10-10 13:04] LABS: Basophils # 0.1 K/mcL (0.0-0.2); Basophils % 0.9 %; Eosinophils # 0.9 K/mcL (0.0-0.6); Eosinophils % 5.4 %; Hematocrit 45.7 % (37.5-50.1); Immature Granulocytes % 0.6 % (0-4); Mean Corpuscular HGB Conc 31.7 g/dL (31.6-35.5); Mean Corpuscular Hemoglobin 27.5 pg (28.0-33.3); Mean Corpuscular Volume 86.7 fL (83.0-100.0); Monocytes # 1.1 K/mcL (0.0-1.3); Monocytes % 6.6 %; Neutrophils # 9.8 K/mcL (1.6-8.9); Platelet Count 415 K/mcL (140-400); Red Blood Count 5.27 M/mcL (4.19-5.50); Red Cell Distribution Width 14.6 % (11.5-14.5); Segmented Neutrophils % 61.5 %
[2017-10-10 13:05] LABS: Hemoglobin 14.5 g/dL (12.9-16.9)
[2017-10-10 13:12] LABS: Calcium 9.5 mg/dL (8.6-10.3); Carbon Dioxide 29 mEq/L (23-29); Chloride 104 mEq/L (98-107); Potassium 3.9 mEq/L (3.5-5.1); Sodium 140 mEq/L (136-145)
[2017-10-10 13:18] LABS: BUN/Creatinine Ratio 10 (6-26); Blood Urea Nitrogen 10 mg/dL (6-20); Glucose 114 mg/dL (70-105); Osmolality,Calculated 290 (280-300); eGFR For African Americans > 60 (> 60); eGFR For Non-African Americans > 60 (> 60)
[2017-10-10] MEDS: 0.9 % Sodium Chloride 1,000 ML IVC SCH (16:21)
[2017-10-10] MEDS: metroNIDAZOLE 500 MG TABLET PO SCH ×3 (16:23→22:07)
[2017-10-10] MEDS: *HR* Heparin 5,000 UNIT/ML VIAL SQ SCH (16:23)
[2017-10-10] MEDS: *HR* OxyCODONE/APAP 5/325 TABLET PO PRN ×2 (18:36→22:36)
[2017-10-10] MEDS: Piperacillin/Tazobactam 3.375 GM/200 ML BAG IVPB SCH (18:37)
--- NOTE | 2017-10-10 19:09 | Anesthesia Evaluation PreOp ---
Date of Encounter: 10/10/17 Time of Encounter: 18:45 - Past History Planned Operation: Robotic Sigmoid Colectomy Cardiac History: Denies any Significant Hx Pulmonary History: Smoker, Asthma, COPD REGISTERED MIDWIFE History: Denies Any Significant HX Other Medical History: GERD Anesthesia History: No Prior Anesthetic Complications Alcohol Use: none Drug use: marijuana Medications and Allergies Loratadine [Claritin] 10 mg PO DAILY 09/10/17 [History] Albuterol Sulfate [Ventolin Hfa] 2 puff IH Q6H PRN 09/20/17 [History] Fluticasone/Salmeterol [Advair 250-50 Diskus] 1 puff IH BID 09/20/17 [History] Omeprazole 20 mg PO DAILY 09/20/17 [History] Amoxicillin/Clavulanate [Augmentin] 875 mg PO BIDWM #20 tablet 10/08/17 [Rx] Docusate [Colace] 100 mg PO BID #30 capsule 10/08/17 [Rx] OxyCODONE/APAP 5/325 [Percocet 5/325 MG] 1 each PO Q6HR PRN #20 tablet 10/08/17 [Rx] 3 Allergy/AdvReac Type Severity Reaction Status Date / Time No Known Allergies Allergy Verified 10/03/17 10:53 - Meds/Allergy Pre-op Review Medications Reviewed: Yes Allergies Reviewed: Yes Beta Blockers on Current Med List: No Anesthesia Results - Labs 10/10/17 12:47 10/10/17 12:47 - Imaging EKG: pending Anesthesia Exam O2 Sat Height 1.8 m Weight 68.8 kg O2 Sat by Pulse Oximetry 96 O2 Sat by Pulse Oximetry 97 O2 Sat by Pulse Oximetry 97 Vital Signs Pulse Resp BP Pulse Ox 75 16 141/88 97 10/10/17 11:06 10/10/17 11:06 10/10/17 11:06 10/10/17 11:06 Height: 5'11 Weight: 151 lbs NPO (# of Hours): MN Pain Scale: 0 - HEENT Pupil (Motor): Pupils equal, EOMI Mallampati: III Teeth: Missing, Poor dentition Oral Opening: Less than or equal to 3 - REGISTERED MIDWIFE LOC: Oriented REGISTERED MIDWIFE Motor: Normal RUE, Normal LUE, Normal RLE, Normal LLE, Normal Face REGISTERED MIDWIFE Sensory: Normal: RUE, LUE, RLE, LLE, Face - Cardiac Rhythm: Regular Murmur: None JVD: No Carotid Bruit: No - Pulmonary Breath Sounds: bilateral Clear Respiratory Effort: Symmetrical Anesthesia Assess/Plan ASA Score: 3 (COPD Tobacco Gerd) Modified Terri Scale for Level of Consciousness: Cooperative, oriented, and tranquil Anesthetic Plan: General Monitoring Plan: Standard Monitors Recovery Plan: PACU (Discussed GA, agrees to proceed)
[2017-10-11] MEDS: Piperacillin/Tazobactam 3.375 GM/200 ML BAG IVPB SCH ×4 (00:05→23:43)
[2017-10-11] MEDS: *HR* HYDROmorphone (PF) 1 MG/ML SYRINGE IVP PRN ×4 (00:09→13:09)
[2017-10-11] MEDS: *HR* Heparin 5,000 UNIT/ML VIAL SQ SCH ×2 (04:57→19:49)
[2017-10-11] MEDS: 0.9 % Sodium Chloride 1,000 ML IVC SCH ×2 (05:51→17:25)
[2017-10-11] MEDS ORDERED: Pantoprazole 40 MG VIAL IVP SCH (09:00)
[2017-10-11] MEDS: *HR* OxyCODONE/APAP 5/325 TABLET PO PRN (09:09)
[2017-10-11] MEDS ORDERED: *HR* Midazolam HCl 2 MG/2 ML VIAL ONE (10:05)
[2017-10-11] MEDS ORDERED: *HR* FentaNYL (PF) 100 MCG/2 ML VIAL ONE ×2 (10:05→11:19)
[2017-10-11] MEDS ORDERED: *HR* Propofol 200 MG/20 ML VIAL IVP ONE (10:05)
[2017-10-11] MEDS ORDERED: Ketorolac 30 MG/ML VIAL ONE (10:05)
[2017-10-11] MEDS ORDERED: Lidocaine -MPF 2% 2 ML VIAL ONE (10:05)
[2017-10-11] MEDS ORDERED: *HR* Rocuronium Bromide 50 MG/5 ML VIAL ONE (10:05)
[2017-10-11] MEDS ORDERED: Dexamethasone 4 MG/ML VIAL ONE (10:05)
[2017-10-11] MEDS ORDERED: Ondansetron 4 MG/2 ML VIAL ONE (10:05)
[2017-10-11] MEDS ORDERED: Lidocaine -MPF 4% 5 ML AMPUL ONE (10:11)
[2017-10-11] MEDS ORDERED: Lidocaine -MPF 1% 5 ML AMPUL INFILT ONE ×2 (10:17→14:24)
[2017-10-11] MEDS ORDERED: D10% in Water 500 ML IVC PRN ×2 (10:27→14:24)
[2017-10-11] MEDS ORDERED: *HR* Metoprolol 5 MG/5 ML VIAL IVP ONE (11:26)
[2017-10-11] MEDS ORDERED: *HR* Phenylephrine 10 MG/ML VIAL ONE (11:26)
[2017-10-11] MEDS ORDERED: Albuterol 2.5 MG/3 ML NEBULIZER IH PRN ×2 (12:04→14:24)
[2017-10-11] MEDS ORDERED: *HR* Promethazine 25 MG/ML VIAL IVP PRN ×2 (12:04→14:24)
[2017-10-11] MEDS ORDERED: Neostigmine Methylsulfate 3 MG/3 ML SYRINGE ONE (12:07)
[2017-10-11] MEDS ORDERED: *HR* HYDROmorphone 2 MG/ML SYRINGE ONE (12:16)
[2017-10-11] MEDS ORDERED: Ringers Solution, Lactated 1,000 ML ONE (13:02)
--- NOTE | 2017-10-11 13:36 | Anesthesia Evaluation Post Op ---
Date of Encounter: 10/11/17 Time of Encounter: 13:35 - Vital Signs Vital Signs: Vital Signs/O2 Sat, Most Current Temp Pulse Resp BP Pulse Ox 98.2 F 96 18 130/74 94 10/11/17 13:27 10/11/17 13:27 10/11/17 13:27 10/11/17 13:27 10/11/17 13:27 - Lungs Lungs: Clear Ascult./Percussion - Airway Airway: Non-obstructed - Cardiovascular Regular Rate - Mental Status Mental Status: Asleep with brisk response to light stimulation - Pain Pain Scale: 8 Pain Scale used: Numeric (1 - 10) - Nausea Vomiting Nausea Vomiting: Not Present - Hydration Hydration: NPO, Coffey catheter - Discharge PostOp Status: Transfer Patient to floor
[2017-10-11] MEDS ORDERED: Naloxone 0.4 MG/ML INJ IVP PRN ×2 (14:24)
[2017-10-11] MEDS ORDERED: Ondansetron 4 MG/2 ML VIAL IVP PRN (14:24)
[2017-10-11] MEDS ORDERED: Acetaminophen IV 1,000 MG/100 ML INFUS..BTL IVPB ONE (15:00)
[2017-10-11] MEDS ORDERED: Clinimix E 5%-15% SOLUTION 2,000 ML with MVI, adult with vitamin K 10 ML IVC SCH ×2 (17:00)
[2017-10-11] MEDS: *HR* Morphine 30 MG/ 30 ML PCA IVC PRN (17:20)
[2017-10-11 19:14] LABS: Basophils # 0.1 K/mcL (0.0-0.2); Basophils % 0.2 %; Hematocrit 39.7 % (37.5-50.1); Immature Granulocytes % 0.8 % (0-4); Lymphocytes # 1.2 K/mcL (0.6-4.6); Lymphocytes % 3.9 %; Mean Corpuscular Hemoglobin 27.6 pg (28.0-33.3); Mean Corpuscular Volume 86.3 fL (83.0-100.0); Mean Platelet Volume 8.9 fL (9.4-12.4); Monocytes # 0.5 K/mcL (0.0-1.3); Monocytes % 1.7 %; Neutrophils # 27.9 K/mcL (1.6-8.9); Platelet Count 417 K/mcL (140-400); Red Cell Distribution Width 14.7 % (11.5-14.5); Segmented Neutrophils % 93.4 %
[2017-10-11 19:16] LABS: Hemoglobin 12.7 g/dL (12.9-16.9)
[2017-10-11 19:19] LABS: INR 1.3; Prothrombin Time 14.1 Seconds (9.4-12.1)
[2017-10-11 19:32] LABS: Alanine Aminotransferase 12 Units/L (7-52); Albumin 3.5 g/dL (3.5-5.7); Albumin/Globulin Ratio 1.3 (1.1-2.2); Alkaline Phosphatase 46 Units/L (34-104); Aspartate Amino Transferase 11 Units/L (13-39); BUN/Creatinine Ratio 14 (6-26); Bilirubin,Total 0.5 mg/dL (0.3-1.0); Blood Urea Nitrogen 13 mg/dL (6-20); Calcium 8.5 mg/dL (8.6-10.3); Carbon Dioxide 23 mEq/L (23-29); Chloride 104 mEq/L (98-107); Globulin 2.8 g/dL (2.4-3.5); Glucose 202 mg/dL (70-105); Osmolality,Calculated 286 (280-300); Potassium 4.1 mEq/L (3.5-5.1); Sodium 135 mEq/L (136-145); Total Protein 6.3 g/dL (6.4-8.9); eGFR For African Americans > 60 (> 60); eGFR For Non-African Americans > 60 (> 60)
[2017-10-11 19:38] LABS: Platelet Estimate Normal (Normal)
[2017-10-11] MEDS: Budesonide/Formoterol 80/4.5 MDI IH SCH (22:41)
[2017-10-12] MEDS: *HR* Morphine 30 MG/ 30 ML PCA IVC PRN ×2 (04:05→15:40)
[2017-10-12 04:11] LABS: Basophils # 0.1 K/mcL (0.0-0.2); Basophils % 0.2 %; Hematocrit 35.8 % (37.5-50.1); Hemoglobin 11.5 g/dL (12.9-16.9); Immature Granulocytes % 0.7 % (0-4); Lymphocytes # 1.9 K/mcL (0.6-4.6); Lymphocytes % 7.7 %; Mean Corpuscular HGB Conc 32.1 g/dL (31.6-35.5); Mean Corpuscular Hemoglobin 27.7 pg (28.0-33.3); Mean Corpuscular Volume 86.3 fL (83.0-100.0); Mean Platelet Volume 9.2 fL (9.4-12.4); Monocytes # 1.8 K/mcL (0.0-1.3); Monocytes % 7.2 %; Neutrophils # 20.4 K/mcL (1.6-8.9); Platelet Count 376 K/mcL (140-400); Red Blood Count 4.15 M/mcL (4.19-5.50); Red Cell Distribution Width 14.7 % (11.5-14.5); Segmented Neutrophils % 84.2 %
[2017-10-12] MEDS: 0.9 % Sodium Chloride 1,000 ML IVC SCH (04:12)
[2017-10-12] MEDS: *HR* Heparin 5,000 UNIT/ML VIAL SQ SCH ×2 (05:38→17:47)
[2017-10-12 05:56] LABS: BUN/Creatinine Ratio 15 (6-26); Blood Urea Nitrogen 15 mg/dL (6-20); Calcium 8.5 mg/dL (8.6-10.3); Carbon Dioxide 21 mEq/L (23-29); Chloride 104 mEq/L (98-107); Glucose 204 mg/dL (70-105); Magnesium 1.8 mg/dL (1.6-2.6); Osmolality,Calculated 287 (280-300); Potassium 4.4 mEq/L (3.5-5.1); Sodium 135 mEq/L (136-145); Triglycerides 98 mg/dL (< 150); eGFR For African Americans > 60 (> 60); eGFR For Non-African Americans > 60 (> 60)
[2017-10-12] MEDS: Budesonide/Formoterol 80/4.5 MDI IH SCH (07:45)
[2017-10-12] MEDS: Piperacillin/Tazobactam 3.375 GM/200 ML BAG IVPB SCH ×3 (09:40→23:54)
[2017-10-12] MEDS: Pantoprazole 40 MG VIAL IVP SCH (09:40)
[2017-10-12] MEDS ORDERED: *HR* Dextrose 50 % in Water (Syg) 50 ML SYRINGE IVP PRN (10:41)
[2017-10-12] MEDS ORDERED: D5% in Water 1,000 ML IVC PRN (10:41)
[2017-10-12] MEDS ORDERED: Dextrose Gel 15 GM/37.5 ML TUBE PO PRN ×2 (10:41)
--- NOTE | 2017-10-12 12:13 | General Surgery Progress Note ---
Date of Encounter: 10/12/17 Time of Encounter: 11:45 - Assessment and Plan (1) Perforated appendix Current Visit: Yes Status: Acute POD #1 open appendectomy. Previous CTs with reports of perforated diverticulum; however upon surgical intervention was noted that his findings were more consistent with the perforated appendix. He underwent an open appendectomy and JOAO drain placement 10/12/2017. Plan: await return or bowel function continue supportive care and discomfort management Continue NG tube to the LIWS. NPO except ice chips; consideration of dietary advancement pending clinical course PRODUCT DEVELOPMENT ECOLOGIST, scheduled Toradol, scheduled for massive out of bed to chair at least TID ambulate with assistance; may clamp NG tube to ambulate continued G.I. and DVT prophylaxis TPN, total fluid rate TPN goal Continue IV ATBX D/c lynn aggressive pulmonary toileting, scheduled duonebs, RT consult respectively Repeat am labs (2) Leukocytosis Current Visit: Yes Status: Acute WBC 29.9>>24.3 with outstanding bandemia. Continue IV antibiotics as above Qualifiers: Leukocytosis type: unspecified Qualified Code(s): D72.829 - Elevated white blood cell count, unspecified (3) COPD (chronic obstructive pulmonary disease) Current Visit: Yes Status: Chronic Aggressive pulmonary toileting out of bed at least TID schedule duonebs and continue maintenance medications Qualifiers: COPD type: unspecified COPD Qualified Code(s): J44.9 - Chronic obstructive pulmonary disease, unspecified Subjective Patient reports: still having pain, voiding w/o difficulty, no flatus, no bowel movement, afebrile Narrative: Denies nausea. Denies fevers. He states he has not been out of been out of bed and that is abdominal pain is overall control on the PRODUCT DEVELOPMENT ECOLOGIST. Objective Vital Signs - Last 8 Hours Temp Pulse Resp BP Pulse Ox 10/12/17 10:42 97.6 F 85 16 149/88 92 10/12/17 06:58 98.1 F 84 14 142/84 95 Intake and Output 10/11/17 10/12/17 10/12/17 23:59 07:59 15:59 Intake Total 200 / 200 1200 / 1200 Output Total 1465 / 1465 1320 / 1320 730 / 730 Balance -1265 / -1265 -120 / -120 -730 / -730 Intake: IV Fluids 200 / 200 1200 / 1200 0.9 % Sodium Chloride 1,000 ML 1000 / 1000 @ 75 mls/hr IVC .[id number] ELINA Rx #:[id number] Zosyn Premix 3.375 GM/200 ML 3. 200 / 200 200 / 200 375 gm In 200 ml @ 50 mls/hr IVPB Q8HR ELINA Rx#:[id number] Oral 0 / 0 0 / 0 Output: Urine 0 / 0 Catheter 1300 / 1300 900 / 900 400 / 400 Gastric Drainage 400 / 400 300 / 300 Wound Drainage 165 / 165 20 / 20 30 / 30 Right Abdomen 165 / 165 20 / 20 30 / 30 Other: Meal NPO NPO Percent of Meal Consumed 0% Weight 68.8 kg Blood Glucose* 212 146 126 Patient Weight 10/12/17 23:59 Weight 68.8 kg - General physical appearance no distress, moderate pain - Eyes normal ocular movement - ENT atraumatic, normocephalic - Neck Neck exam: trachea midline, no venous distension - Respiratory other (Decreased bilaterally. Course breath sounds) - Cardiovascular Cardiovascular exam: Present: RRR - Abdomen Abdomen: Present: tender (Expected postoperative tenderness), wound (Right JOAO drain site with small amount of dark red output.). Absent: bowel sounds present (ABSENT) Hernia: none - Incision Incision: Present: clean and dry (Overall clean and dry. Small amount of ss drainage noted.), intact - Genitourinary other (Penis and testicles edematous. Lynn catheter in place.) - Integumentary no rash - Neurologic normal coordination, normal sensation - Musculoskeletal normal posture - Psychiatric oriented to time, oriented to person, oriented to place, speech is normal, memory intact - Labs 10/12/17 03:51 10/12/17 03:51 Diabetes panel 10/11/17 10/12/17 Range/Units 19:04 03:51 Sodium 135 L 135 L (136-145) mEq/L Potassium 4.1 4.4 (3.5-5.1) mEq/L Chloride 104 104 (98-107) mEq/L Carbon Dioxide 23 21 L (23-29) mEq/L BUN 13 15 (6-20) mg/dL Creatinine 0.93 1.01 (0.70-1.30) mg/dL Glucose 202 H 204 H (70-105) mg/dL Calcium 8.5 L 8.5 L (8.6-10.3) mg/dL AST 11 L (13-39) Units/L ALT 12 (7-52) Units/L Alkaline Phosphatase 46 (34-104) Units/L Albumin 3.5 (3.5-5.7) g/dL Triglycerides 98 (< 150) mg/dL Calcium panel 10/11/17 10/12/17 Range/Units 19:04 03:51 Calcium 8.5 L 8.5 L (8.6-10.3) mg/dL Phosphorus 3.0 (2.7-4.5) mg/dL Albumin 3.5 (3.5-5.7) g/dL Pituitary panel 10/11/17 10/12/17 Range/Units 19:04 03:51 Sodium 135 L 135 L (136-145) mEq/L Potassium 4.1 4.4 (3.5-5.1) mEq/L Chloride 104 104 (98-107) mEq/L Carbon Dioxide 23 21 L (23-29) mEq/L BUN 13 15 (6-20) mg/dL Creatinine 0.93 1.01 (0.70-1.30) mg/dL Glucose 202 H 204 H (70-105) mg/dL Calcium 8.5 L 8.5 L (8.6-10.3) mg/dL Adrenal panel 10/11/17 10/12/17 Range/Units 19:04 03:51 Sodium 135 L 135 L (136-145) mEq/L Potassium 4.1 4.4 (3.5-5.1) mEq/L Chloride 104 104 (98-107) mEq/L Carbon Dioxide 23 21 L (23-29) mEq/L BUN 13 15 (6-20) mg/dL Creatinine 0.93 1.01 (0.70-1.30) mg/dL Glucose 202 H 204 H (70-105) mg/dL Calcium 8.5 L 8.5 L (8.6-10.3) mg/dL Total Bilirubin 0.5 (0.3-1.0) mg/dL AST 11 L (13-39) Units/L ALT 12 (7-52) Units/L Alkaline Phosphatase 46 (34-104) Units/L Albumin 3.5 (3.5-5.7) g/dL Consult Discharge Plan - Plan Referrals: Gisele Arreaga, MARLEN [Primary Care Provider] - Annette Corral DO [Family Provider] -
[2017-10-12] MEDS: Insulin LISPRO 300 UNITS/3 ML VIAL SQ SCH ×4 (12:34→22:57)
[2017-10-12] MEDS: Ketorolac 15 MG/ML VIAL IVP SCH ×3 (12:36→23:52)
[2017-10-12] MEDS: Acetaminophen IV 1,000 MG/100 ML INFUS..BTL IVPB SCH ×4 (12:37→23:56)
--- NOTE | 2017-10-12 13:39 | Electrocardiograph Report ---
[place] [id number] Test Date: 2017-10-11 Pat Name: Tong Giraldo Department: 106 Room: 3A46 Gender: M Ore Puncher: ANN : 1960 Requested By: Ben Ferris Order Number: [id number] Reading MD: Mihir Gil MD Measurements Intervals [place] Rate: 71 P: 50 [place]: 158 QRS: 47 QRSD: 88 T: 51 QT: 451 QTc: 473 Interpretive Statements SINUS RHYTHM PROLONGED QT INTERVAL Electronically Signed On 10-12-2017 13:37:12 EST by Mihir Gil MD
--- NOTE | 2017-10-12 14:56 | Operative Note ---
Date of procedure: 10/11/17 Pre-op diagnosis: Ruptured diverticulitis with abscess Post-op diagnosis: other (Ruptured appendicitis with abscess) Procedure: Expiratory laparotomy with small bowel resection 2 and appendectomy Anesthesia: GETA Surgeon: Qamar Armstrong Was there an [employer] assistant manager present: No Estimated blood loss (cc): 5 Specimen: Small bowel specimen 2 and appendix Condition: stable Procedure in Detail: After informed consent, the patient was taken to the operating and placed in supine position. After adequate sedation anesthesia Was prepped and draped. Initially a diagnostic laparoscopy was performed. There are multiple small bowel loops adherent to the posterior aspect of the abdominal wall. There were 2 loculated abscess cavities which were drained. During the dissection and noted it was going to involve multiple loops of small bowel which I could not easily identify any potential injuries, therefore, decision was made to perform a laparotomy. Once the abdomen was opened a Bookwalter retractor was placed in the field. The abdominal wall was retracted. Lysis of adhesions 35 minutes was performed to finger fracture the small bowel loops of bowel. Due to the abscess small bowel had been incredibly inflamed with adhesions and I did not feel the intestine would resolve in a timely fashion. Therefore a decision was made to perform to individual small bowel resections. Both of which are performed with LOUISE 75 mm staplers. A [id number], functional end-to-end anastomosis was performed with the LOUISE 75 mm stapler and a TA 60 stapler. Once completed the mesentery was closed with 3-0 silk suture in running fashion. An NG tube was placed intraoperatively and found to be in good position within the stomach. The appendix which was not the likely source of the abdominal abscesses was then taken with a LOUISE 75 mm stapler as well. The appendiceal pedicle was taken with an 0 silk suture. A 19-Malay [place] drain was left in the abdomen and brought up to the right abdominal wall. The abdominal wall was closed with a looped PDS suture and cephalad, caudal cephalad motion. Skin linsey were placed on the skin. Patient tolerated the procedure well.
[2017-10-12] MEDS: Ipratropium/Albuterol Neb 3 ML IH SCH ×2 (15:20→16:43)
[2017-10-12] MEDS ORDERED: Clinimix E 5%-15% SOLUTION 2,000 ML with MVI, adult with vitamin K 10 ML IVC SCH (17:00)
[2017-10-12] MEDS ORDERED: 0.9 % Sodium Chloride 250 ML ONE (20:05)
[2017-10-12] MEDS: ALBUTEROL INHALER IH SCH ×2 (20:32→23:54)
[2017-10-12] MEDS: ADVAIR DISKUS 250/50 IH SCH (20:32)
[2017-10-13] MEDS: ALBUTEROL INHALER IH SCH ×5 (03:54→20:46)
[2017-10-13 04:24] LABS: Basophils # 0.1 K/mcL (0.0-0.2); Basophils % 0.4 %; Eosinophils # 0.5 K/mcL (0.0-0.6); Eosinophils % 2.8 %; Hematocrit 28.2 % (37.5-50.1); Immature Granulocytes % 0.5 % (0-4); Lymphocytes # 3.7 K/mcL (0.6-4.6); Lymphocytes % 20.4 %; Mean Corpuscular HGB Conc 31.6 g/dL (31.6-35.5); Mean Corpuscular Hemoglobin 27.7 pg (28.0-33.3); Mean Corpuscular Volume 87.9 fL (83.0-100.0); Mean Platelet Volume 9.7 fL (9.4-12.4); Monocytes # 1.2 K/mcL (0.0-1.3); Monocytes % 6.6 %; Neutrophils # 12.4 K/mcL (1.6-8.9); Platelet Count 294 K/mcL (140-400); Red Blood Count 3.21 M/mcL (4.19-5.50); Red Cell Distribution Width 14.9 % (11.5-14.5); Segmented Neutrophils % 69.3 %
[2017-10-13 04:26] LABS: Hemoglobin 8.9 g/dL (12.9-16.9)
[2017-10-13] MEDS: Insulin LISPRO 300 UNITS/3 ML VIAL SQ SCH ×5 (04:58→19:49)
[2017-10-13] MEDS: *HR* Morphine 30 MG/ 30 ML PCA IVC PRN (04:59)
[2017-10-13] MEDS: Ketorolac 15 MG/ML VIAL IVP SCH ×3 (05:03→17:14)
[2017-10-13] MEDS: *HR* Heparin 5,000 UNIT/ML VIAL SQ SCH ×2 (05:04→17:14)
[2017-10-13 05:09] LABS: BUN/Creatinine Ratio 19 (6-26); Blood Urea Nitrogen 18 mg/dL (6-20); Calcium 8.1 mg/dL (8.6-10.3); Carbon Dioxide 27 mEq/L (23-29); Chloride 106 mEq/L (98-107); Glucose 129 mg/dL (70-105); Magnesium 1.8 mg/dL (1.6-2.6); Osmolality,Calculated 288 (280-300); Phosphorous 2.5 mg/dL (2.7-4.5); Potassium 3.4 mEq/L (3.5-5.1); Sodium 137 mEq/L (136-145); eGFR For African Americans > 60 (> 60); eGFR For Non-African Americans > 60 (> 60)
--- NOTE | 2017-10-13 05:59 | General Surgery Progress Note ---
<Idalia Davis - Last Filed: 10/13/17 13:52> Date of Encounter: 10/13/17 Time of Encounter: 05:59 - Assessment and Plan (1) Perforated appendix Current Visit: Yes Status: Acute Date of procedure: 10/11/17 Pre-op diagnosis: Ruptured diverticulitis with abscess Post-op diagnosis: other (Ruptured appendicitis with abscess) Procedure: Expiratory laparotomy with small bowel resection 2 and appendectomy Anesthesia: GETA Surgeon: Qamar Armstrong Estimated blood loss (cc): 5 Specimen: Small bowel specimen 2 and appendix POD #2 open appendectomy and JOAO drain placement 10/12/2017. Pathology pending Plan: Monitor for progression in bowel function - pt endorses flatus this morning On PE, remains soft with present BS Keep NG tube appended to parking meter collector bag TPN, total fluid rate TPN goal Continue supportive care and discomfort management Encourage pt to ambulate with assistance; may clamp NG tube to ambulate continued G.I. and DVT prophylaxis Continue IV ATBx Aggressive pulmonary toileting, scheduled duonebs as some wheezing and heightened risk as postop patient, re-entered RT consult respectively Repeat AM labs to follow downtrending of leukocytosis (2) Leukocytosis Current Visit: Yes Status: Acute Leukocytosis downtrending Repeat CBC tomorrow Qualifiers: Leukocytosis type: unspecified Qualified Code(s): D72.829 - Elevated white blood cell count, unspecified (3) Moderate protein-calorie malnutrition Current Visit: No Status: Acute Continue TPN (4) COPD (chronic obstructive pulmonary disease) Current Visit: Yes Status: Chronic Sat > 92%, Room Air Per RN, Pt politely refused scheduled treatment Will educate this morning Recommend continuation Duonebs and scheduled treatment RT on consult for proper guidance of use Qualifiers: COPD type: unspecified COPD Qualified Code(s): J44.9 - Chronic obstructive pulmonary disease, unspecified (5) DVT prophylaxis Current Visit: No Status: Acute Heparin 5000 U SubQ BID Ambulation with assistance EPCDs Subjective Patient reports: no new complaints, flatus, no bowel movement, afebrile Narrative: No acute events overnight. Pt endorses burping. hiccuping. Passing flatus.No emesis. No nausea. No bowel movement. Does not feel distended. Objective Vital Signs - Last 8 Hours Temp Pulse Resp BP Pulse Ox 10/13/17 04:35 98.0 F 80 14 120/75 93 10/12/17 22:55 98.1 F 78 14 122/72 97 Intake and Output 10/12/17 10/12/17 10/13/17 15:59 23:59 07:59 Intake Total 550 / 550 1300 / 1300 100 / 100 Output Total 1281 / 1281 705 / 705 915 / 915 Balance -731 / -731 595 / 595 -815 / -815 Intake: IV Fluids 550 / 550 1300 / 1300 100 / 100 0.9 % Sodium Chloride 1,000 ML 1000 / 1000 @ 75 mls/hr IVC .[id number] [facility] Rx #:[id number] Ofirmev 1,000 mg/100 ml 1,000 100 / 100 100 / 100 100 / 100 mg In 100 ml @ 400 mls/hr IVPB Q6H [facility] Rx#:[id number] Intralipid 20% 250 ML @ 21 mls/ 250 / 250 hr IVPB DAILY@1700 [facility] Rx#: [id number] Zosyn Premix 3.375 GM/200 ML 3. 200 / 200 200 / 200 375 gm In 200 ml @ 50 mls/hr IVPB Q8HR [facility] Rx#:[id number] Oral 0 / 0 0 / 0 0 / 0 Output: Urine 0 / 0 250 / 250 600 / 600 Gastric Tube Lavage Amount 300 / 300 Right Nare 300 / 300 Catheter 800 / 800 Gastric Drainage 425 / 425 400 / 400 Wound Drainage 56 / 56 55 / 55 15 / 15 Right Abdomen 56 / 56 55 / 55 15 / 15 Other: Meal NPO NPO Percent of Meal Consumed 0% 0% Blood Glucose* 126 137 90 - General physical appearance no distress - Eyes normal ocular movement - ENT Other (NG tube suction container: green-colored appearance) - Respiratory other (Inspiratory wheezing prominent on anterior auscultation. Crackles audible in lower bases. Normal expansion. Normal respiratory effort. ) - Abdomen Abdomen: Present: bowel sounds present, soft, tender (light to mild tenderness on palpation ) - Incision Incision: Present: draining (JOAO drain - serosanguinous fluid. No bilious material seen.). Absent: inflamed, serous - Labs 10/13/17 03:50 10/13/17 03:50 Diabetes panel 10/13/17 Range/Units 03:50 Sodium 137 (136-145) mEq/L Potassium 3.4 L (3.5-5.1) mEq/L Chloride 106 (98-107) mEq/L Carbon Dioxide 27 (23-29) mEq/L BUN 18 (6-20) mg/dL Creatinine 0.94 (0.70-1.30) mg/dL Glucose 129 H (70-105) mg/dL Calcium 8.1 L (8.6-10.3) mg/dL Calcium panel 10/13/17 Range/Units 03:50 Calcium 8.1 L (8.6-10.3) mg/dL Phosphorus 2.5 L (2.7-4.5) mg/dL Pituitary panel 10/13/17 Range/Units 03:50 Sodium 137 (136-145) mEq/L Potassium 3.4 L (3.5-5.1) mEq/L Chloride 106 (98-107) mEq/L Carbon Dioxide 27 (23-29) mEq/L BUN 18 (6-20) mg/dL Creatinine 0.94 (0.70-1.30) mg/dL Glucose 129 H (70-105) mg/dL Calcium 8.1 L (8.6-10.3) mg/dL Adrenal panel 10/13/17 Range/Units 03:50 Sodium 137 (136-145) mEq/L Potassium 3.4 L (3.5-5.1) mEq/L Chloride 106 (98-107) mEq/L Carbon Dioxide 27 (23-29) mEq/L BUN 18 (6-20) mg/dL Creatinine 0.94 (0.70-1.30) mg/dL Glucose 129 H (70-105) mg/dL Calcium 8.1 L (8.6-10.3) mg/dL Consult Discharge Plan - Plan Referrals: Gisele Arreaga, MARLEN [Primary Care Provider] - Annette Corral DO [Family Provider] - <Shelly Odom - Last Filed: 10/13/17 14:27> Date of Encounter: 10/13/17 Time of Encounter: 10:35 - Assessment and Plan (1) S/P small bowel resection Current Visit: Yes Status: Acute pod 2 ex lap/sbr x2, appendectomy patient with some scant flatus, no bm feels well no nausea or emesis ngt with 1225 last 24 hrs - was put to SD wbc decreasing from 24 to 17.9 today continue zosyn continue tpn add duonebs ok limited sits 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 (2) S/P appendectomy Current Visit: Yes Status: Acute (3) Leukocytosis Current Visit: Yes Status: Acute improving, trend, continue abx Qualifiers: Leukocytosis type: unspecified Qualified Code(s): D72.829 - Elevated white blood cell count, unspecified (4) Moderate protein-calorie malnutrition Current Visit: No Status: Acute continue tpn (5) Tobacco abuse Current Visit: No Status: Chronic Subjective Patient reports: no new complaints, still having pain, pain is less, flatus, no bowel movement, afebrile Objective Vital Signs - Last 8 Hours Temp Pulse Resp BP Pulse Ox 10/13/17 11:00 97.9 F 93 15 146/71 96 10/13/17 10:44 15 93 10/13/17 06:45 98.4 F 68 15 108/70 93 Intake and Output 10/12/17 10/13/17 10/13/17 23:59 07:59 15:59 Intake Total 1300 / 1300 400 / 400 200 / 200 Output Total 705 / 705 1020 / 1020 720 / 720 Balance 595 / 595 -620 / -620 -520 / -520 Intake: IV Fluids 1300 / 1300 400 / 400 200 / 200 0.9 % Sodium Chloride 1,000 ML 1000 / 1000 @ 75 mls/hr IVC .[id number] [facility] Rx #:[id number] Ofirmev 1,000 mg/100 ml 1,000 100 / 100 200 / 200 mg In 100 ml @ 400 mls/hr IVPB Q6H [facility] Rx#:[id number] Zosyn Premix 3.375 GM/200 ML 3. 200 / 200 200 / 200 200 / 200 375 gm In 200 ml @ 50 mls/hr IVPB Q8HR [facility] Rx#:[id number] Oral 0 / 0 0 / 0 0 / 0 Output: Urine 250 / 250 600 / 600 700 / 700 Gastric Tube Lavage Amount 300 / 300 Right Nare 300 / 300 Gastric Drainage 400 / 400 100 / 100 Wound Drainage 55 / 55 20 / 20 20 / 20 Right Abdomen 55 / 55 20 / 20 20 / 20 Other: Meal NPO NPO Percent of Meal Consumed 0% Blood Glucose* 137 90 118 - General physical appearance well developed, no distress - Eyes PERRL, normal ocular movement - ENT normal mucosa, normocephalic - Neck Neck exam: trachea midline - Respiratory normal expansion, clear to auscultation - Cardiovascular Cardiovascular exam: Present: RRR - Abdomen Abdomen: Present: soft, tender. Absent: bowel sounds present, distended, guarding, rebound - Incision Incision: Absent: clean and dry - Integumentary no growths - Neurologic CN 2-12 grossly intact - Musculoskeletal normal posture - Psychiatric oriented to time, oriented to person, oriented to place, speech is normal, memory intact - Labs 10/13/17 03:50 10/13/17 03:50 Diabetes panel 10/13/17 Range/Units 03:50 Sodium 137 (136-145) mEq/L Potassium 3.4 L (3.5-5.1) mEq/L Chloride 106 (98-107) mEq/L Carbon Dioxide 27 (23-29) mEq/L BUN 18 (6-20) mg/dL Creatinine 0.94 (0.70-1.30) mg/dL Glucose 129 H (70-105) mg/dL Calcium 8.1 L (8.6-10.3) mg/dL Calcium panel 10/13/17 Range/Units 03:50 Calcium 8.1 L (8.6-10.3) mg/dL Phosphorus 2.5 L (2.7-4.5) mg/dL Pituitary panel 10/13/17 Range/Units 03:50 Sodium 137 (136-145) mEq/L Potassium 3.4 L (3.5-5.1) mEq/L Chloride 106 (98-107) mEq/L Carbon Dioxide 27 (23-29) mEq/L BUN 18 (6-20) mg/dL Creatinine 0.94 (0.70-1.30) mg/dL Glucose 129 H (70-105) mg/dL Calcium 8.1 L (8.6-10.3) mg/dL Adrenal panel 10/13/17 Range/Units 03:50 Sodium 137 (136-145) mEq/L Potassium 3.4 L (3.5-5.1) mEq/L Chloride 106 (98-107) mEq/L Carbon Dioxide 27 (23-29) mEq/L BUN 18 (6-20) mg/dL Creatinine 0.94 (0.70-1.30) mg/dL Glucose 129 H (70-105) mg/dL Calcium 8.1 L (8.6-10.3) mg/dL - Attending Attestation I examined this patient and my medical decision-making was reviewed with the Resident Physician. I agree with the documented findings, disposition and treatment plan as described except to the extent set forth below.
[2017-10-13] MEDS: Pantoprazole 40 MG VIAL IVP SCH (06:55)
[2017-10-13] MEDS: Acetaminophen IV 1,000 MG/100 ML INFUS..BTL IVPB SCH (06:55)
[2017-10-13] MEDS: Piperacillin/Tazobactam 3.375 GM/200 ML BAG IVPB SCH ×2 (06:56→17:16)
[2017-10-13] MEDS: Ipratropium/Albuterol Neb 3 ML IH SCH ×4 (10:41→22:00)
[2017-10-13] MEDS: ADVAIR DISKUS 250/50 IH SCH ×2 (10:42→22:12)
[2017-10-13] MEDS ORDERED: *HR* Morphine 30 MG/ 30 ML PCA IVC PRN ×2 (10:49→12:25)
[2017-10-13] MEDS ORDERED: 0.9 % Sodium Chloride 500 ML ONE (12:02)
[2017-10-13] MEDS ORDERED: Clinimix E 5%-15% SOLUTION 2,000 ML with MVI, adult with vitamin K 10 ML IVC SCH (17:00)
[2017-10-14] MEDS: Insulin LISPRO 300 UNITS/3 ML VIAL SQ SCH ×7 (00:11→23:36)
[2017-10-14] MEDS: Ketorolac 15 MG/ML VIAL IVP SCH ×5 (00:12→23:39)
[2017-10-14] MEDS: Piperacillin/Tazobactam 3.375 GM/200 ML BAG IVPB SCH ×4 (00:12→23:38)
[2017-10-14] MEDS: ALBUTEROL INHALER IH SCH ×6 (04:04→23:12)
[2017-10-14] MEDS: Ipratropium/Albuterol Neb 3 ML IH SCH ×4 (04:11→21:52)
[2017-10-14 04:28] LABS: Basophils # 0.1 K/mcL (0.0-0.2); Basophils % 0.4 %; Eosinophils # 0.7 K/mcL (0.0-0.6); Eosinophils % 3.5 %; Hematocrit 27.8 % (37.5-50.1); Hemoglobin 8.9 g/dL (12.9-16.9); Immature Granulocytes % 0.5 % (0-4); Lymphocytes # 2.9 K/mcL (0.6-4.6); Lymphocytes % 15.2 %; Mean Corpuscular Hemoglobin 27.5 pg (28.0-33.3); Mean Corpuscular Volume 85.8 fL (83.0-100.0); Mean Platelet Volume 9.6 fL (9.4-12.4); Monocytes # 1.3 K/mcL (0.0-1.3); Neutrophils # 13.8 K/mcL (1.6-8.9); Nucleated Red Blood Cells 0.1 /100 WBC (0); Platelet Count 289 K/mcL (140-400); Red Blood Count 3.24 M/mcL (4.19-5.50); Red Cell Distribution Width 15.1 % (11.5-14.5); Segmented Neutrophils % 73.4 %
[2017-10-14 06:05] LABS: BUN/Creatinine Ratio 18 (6-26); Blood Urea Nitrogen 17 mg/dL (6-20); Calcium 8.2 mg/dL (8.6-10.3); Carbon Dioxide 26 mEq/L (23-29); Chloride 103 mEq/L (98-107); Glucose 119 mg/dL (70-105); Magnesium 1.7 mg/dL (1.6-2.6); Osmolality,Calculated 285 (280-300); Phosphorous 3.6 mg/dL (2.7-4.5); Potassium 3.1 mEq/L (3.5-5.1); Sodium 136 mEq/L (136-145); eGFR For African Americans > 60 (> 60); eGFR For Non-African Americans > 60 (> 60)
[2017-10-14] MEDS: *HR* Heparin 5,000 UNIT/ML VIAL SQ SCH ×2 (06:52→17:53)
[2017-10-14] MEDS: Pantoprazole 40 MG VIAL IVP SCH (07:52)
--- NOTE | 2017-10-14 09:40 | General Surgery Progress Note ---
<RyanIdalia - Last Filed: 10/14/17 13:39> Date of Encounter: 10/14/17 Time of Encounter: 09:34 - Assessment and Plan (1) Perforated appendix Current Visit: Yes Status: Acute Date of procedure: 10/11/17 Pre-op diagnosis: Ruptured diverticulitis with abscess Post-op diagnosis: other (Ruptured appendicitis with abscess) Procedure: Expiratory laparotomy with small bowel resection 2 and appendectomy Anesthesia: GETA Surgeon: Qamar Armstrong Estimated blood loss (cc): 5 Specimen: Small bowel specimen 2 and appendix POD #3 open appendectomy and JOAO drain placement 10/12/2017. Pathology pending Plan: Monitor for progression in bowel function - On PE, remains soft with present BS Pt did not tolerate NG clamp trial and to gravity. Plan to leave NG tube to LIWS Continue supportive care, with adequate pain management Continue IV Antibiotics Nutrition: TPN, total fluid rate TPN goal Prophylaxis: Continue G.I. and DVT prophylaxis Aggressive pulmonary toileting, continue scheduled duonebs. RT on consult Replete electrolytes, prn (2) Leukocytosis Current Visit: Yes Status: Acute 10/13 : 17.8. 10/14: 18.8 Continue Abx. Repeat CBC AM. Qualifiers: Leukocytosis type: unspecified Qualified Code(s): D72.829 - Elevated white blood cell count, unspecified (3) Moderate protein-calorie malnutrition Current Visit: No Status: Acute Continue TPN (4) COPD (chronic obstructive pulmonary disease) Current Visit: Yes Status: Chronic Sat > 92%, Room Air Continue Duonebs and scheduled treatment RT on consult for proper guidance of use Qualifiers: COPD type: unspecified COPD Qualified Code(s): J44.9 - Chronic obstructive pulmonary disease, unspecified (5) DVT prophylaxis Current Visit: No Status: Acute Heparin 5000 U SubQ BID Ambulation with assistance EPCDs Subjective Narrative: Pt reports feeling better with resumption of LIWS following intermittent NG trial to gravity. Endorses continued pain, rates at 8/10. No nausea. No emesis. Denies passing gas. No bowel movements. Objective Vital Signs - Last 8 Hours Temp Pulse Resp BP Pulse Ox 10/14/17 06:39 98.5 F 85 15 156/86 93 10/14/17 04:38 97.8 F 82 14 137/89 92 10/14/17 04:11 16 93 Intake and Output 10/13/17 10/14/17 10/14/17 23:59 07:59 15:59 Intake Total 250 / 250 450 / 450 Output Total 880 / 880 2089 / 2089 Balance -630 / -630 -1640 / -1640 Intake: IV Fluids 200 / 200 450 / 450 Intralipid 20% 250 ML @ 21 mls/ 250 / 250 hr IVPB DAILY@1700 [facility] Rx#: [id number] Zosyn Premix 3.375 GM/200 ML 3. 200 / 200 200 / 200 375 gm In 200 ml @ 50 mls/hr IVPB Q8HR [facility] Rx#:[id number] Oral 50 / 50 0 / 0 Output: Urine 0 / 0 1250 / 1250 Gastric Tube Lavage Amount 20 / 20 Right Nare 20 / 20 Catheter 250 / 250 Gastric Drainage 600 / 600 800 / 800 Wound Drainage 40 / 40 Right Abdomen 40 / 40 Other: Weight 68.88 kg Blood Glucose* 172 143 Patient Weight 10/14/17 23:59 Weight 68.88 kg - General physical appearance moderate pain - Eyes normal ocular movement - ENT Other (NG tube suctionoing, light brown fluid) - Respiratory other (Equal breath sound b/l. No crackles. Wheezing improved from yesterday. ) - Cardiovascular Cardiovascular exam: Present: regular rhythm, no murmurs/rubs/gallops - Abdomen Abdomen: Present: bowel sounds present, soft, tender - Incision Incision: Present: draining (OJAO drain: serosangenous fluid, approx 20 mL. ) - Labs 10/14/17 04:02 10/14/17 04:02 Diabetes panel 10/14/17 Range/Units 04:02 Sodium 136 (136-145) mEq/L Potassium 3.1 L (3.5-5.1) mEq/L Chloride 103 (98-107) mEq/L Carbon Dioxide 26 (23-29) mEq/L BUN 17 (6-20) mg/dL Creatinine 0.93 (0.70-1.30) mg/dL Glucose 119 H (70-105) mg/dL Calcium 8.2 L (8.6-10.3) mg/dL Calcium panel 10/14/17 Range/Units 04:02 Calcium 8.2 L (8.6-10.3) mg/dL Phosphorus 3.6 (2.7-4.5) mg/dL Pituitary panel 10/14/17 Range/Units 04:02 Sodium 136 (136-145) mEq/L Potassium 3.1 L (3.5-5.1) mEq/L Chloride 103 (98-107) mEq/L Carbon Dioxide 26 (23-29) mEq/L BUN 17 (6-20) mg/dL Creatinine 0.93 (0.70-1.30) mg/dL Glucose 119 H (70-105) mg/dL Calcium 8.2 L (8.6-10.3) mg/dL Adrenal panel 10/14/17 Range/Units 04:02 Sodium 136 (136-145) mEq/L Potassium 3.1 L (3.5-5.1) mEq/L Chloride 103 (98-107) mEq/L Carbon Dioxide 26 (23-29) mEq/L BUN 17 (6-20) mg/dL Creatinine 0.93 (0.70-1.30) mg/dL Glucose 119 H (70-105) mg/dL Calcium 8.2 L (8.6-10.3) mg/dL Consult Discharge Plan - Plan Referrals: Gisele Arreaga, MARLEN [Primary Care Provider] - Annette Corral DO [Family Provider] - <Shelly Odom - Last Filed: 10/14/17 14:45> Date of Encounter: 10/14/17 Time of Encounter: 13:35 - Assessment and Plan (1) S/P small bowel resection Current Visit: Yes Status: Acute pt s/p sbr x2, still awaiting return of bowel function no nausea, no flatus or bm continue ngt, npo ok ice chips flavored ices ambulate (2) S/P appendectomy Current Visit: Yes Status: Acute s.p ex lap appendectomy, sbr x2 await return bowel function continue abx trend wbc (3) Leukocytosis Current Visit: Yes Status: Acute Qualifiers: Leukocytosis type: unspecified Qualified Code(s): D72.829 - Elevated white blood cell count, unspecified (4) Moderate protein-calorie malnutrition Current Visit: No Status: Acute cont tpn (5) Tobacco abuse Current Visit: No Status: Chronic Subjective Patient reports: no new complaints, pain is less, no flatus, no bowel movement, afebrile Objective Vital Signs - Last 8 Hours Temp Pulse Resp BP Pulse Ox 10/14/17 10:14 98.2 F 76 16 146/85 94 10/14/17 06:39 98.5 F 85 15 156/86 93 Intake and Output 10/13/17 10/14/17 10/14/17 23:59 07:59 15:59 Intake Total 250 / 250 450 / 450 0 / 0 Output Total 880 / 880 2090 / 2090 250 / 250 Balance -630 / -630 -1640 / -1640 -250 / -250 Intake: IV Fluids 200 / 200 450 / 450 Intralipid 20% 250 ML @ 21 mls/ 250 / 250 hr IVPB DAILY@1700 [facility] Rx#: [id number] Zosyn Premix 3.375 GM/200 ML 3. 200 / 200 200 / 200 375 gm In 200 ml @ 50 mls/hr IVPB Q8HR [facility] Rx#:[id number] Oral 50 / 50 0 / 0 0 / 0 Output: Urine 0 / 0 1250 / 1250 Gastric Tube Lavage Amount 20 / 20 Right Nare 20 / 20 Catheter 250 / 250 Gastric Drainage 600 / 600 800 / 800 250 / 250 Wound Drainage 10 40 / 40 Right Abdomen 10 40 / 40 Other: Meal NPO Percent of Meal Consumed 0% # Voids 0 Weight 68.88 kg Blood Glucose* 172 143 156 Patient Weight 10/14/17 23:59 Weight 68.88 kg - General physical appearance well nourished, no distress - Eyes normal ocular movement - ENT normal mucosa, normocephalic - Neck Neck exam: trachea midline - Respiratory normal expansion, clear to auscultation - Cardiovascular Cardiovascular exam: Present: RRR - Abdomen Abdomen: Present: soft, tender (appropriate post op tenderness). Absent: bowel sounds present - Incision Incision: Present: clean and dry, intact - Integumentary no rash, no growths - Neurologic CN 2-12 grossly intact - Musculoskeletal normal posture - Psychiatric oriented to time, oriented to person, oriented to place, speech is normal, memory intact - Labs 10/14/17 04:02 10/14/17 04:02 Diabetes panel 10/14/17 Range/Units 04:02 Sodium 136 (136-145) mEq/L Potassium 3.1 L (3.5-5.1) mEq/L Chloride 103 (98-107) mEq/L Carbon Dioxide 26 (23-29) mEq/L BUN 17 (6-20) mg/dL Creatinine 0.93 (0.70-1.30) mg/dL Glucose 119 H (70-105) mg/dL Calcium 8.2 L (8.6-10.3) mg/dL Calcium panel 10/14/17 Range/Units 04:02 Calcium 8.2 L (8.6-10.3) mg/dL Phosphorus 3.6 (2.7-4.5) mg/dL Pituitary panel 10/14/17 Range/Units 04:02 Sodium 136 (136-145) mEq/L Potassium 3.1 L (3.5-5.1) mEq/L Chloride 103 (98-107) mEq/L Carbon Dioxide 26 (23-29) mEq/L BUN 17 (6-20) mg/dL Creatinine 0.93 (0.70-1.30) mg/dL Glucose 119 H (70-105) mg/dL Calcium 8.2 L (8.6-10.3) mg/dL Adrenal panel 10/14/17 Range/Units 04:02 Sodium 136 (136-145) mEq/L Potassium 3.1 L (3.5-5.1) mEq/L Chloride 103 (98-107) mEq/L Carbon Dioxide 26 (23-29) mEq/L BUN 17 (6-20) mg/dL Creatinine 0.93 (0.70-1.30) mg/dL Glucose 119 H (70-105) mg/dL Calcium 8.2 L (8.6-10.3) mg/dL - Attending Attestation I examined this patient and my medical decision-making was reviewed with the Resident Physician. I agree with the documented findings, disposition and treatment plan as described except to the extent set forth below.
[2017-10-14] MEDS: ADVAIR DISKUS 250/50 IH SCH ×2 (10:43→22:04)
[2017-10-14] MEDS ORDERED: Potassium Phosphate 44 MEQ in 0.9 % Sodium Chloride 250 ML IVPB ONE (11:41)
[2017-10-14] MEDS: *HR* HYDROmorphone (PF) 1 MG/ML SYRINGE IVP PRN ×5 (12:54→22:10)
[2017-10-14] MEDS ORDERED: Clinimix E 5%-15% SOLUTION 2,000 ML with MVI, adult with vitamin K 10 ML IVC SCH (17:00)
[2017-10-15] MEDS: *HR* HYDROmorphone (PF) 1 MG/ML SYRINGE IVP PRN ×4 (01:48→09:50)
[2017-10-15] MEDS: Ipratropium/Albuterol Neb 3 ML IH SCH ×4 (03:56→22:16)
[2017-10-15] MEDS: ALBUTEROL INHALER IH SCH ×5 (03:56→20:00)
[2017-10-15] MEDS: Insulin LISPRO 300 UNITS/3 ML VIAL SQ SCH ×6 (04:05→23:52)
[2017-10-15 06:38] LABS: Basophils # 0.1 K/mcL (0.0-0.2); Basophils % 0.4 %; Eosinophils % 4.5 %; Hematocrit 30.1 % (37.5-50.1); Hemoglobin 9.8 g/dL (12.9-16.9); Immature Granulocytes % 0.7 % (0-4); Lymphocytes # 2.2 K/mcL (0.6-4.6); Lymphocytes % 9.7 %; Mean Corpuscular HGB Conc 32.6 g/dL (31.6-35.5); Mean Corpuscular Hemoglobin 27.9 pg (28.0-33.3); Mean Corpuscular Volume 85.8 fL (83.0-100.0); Mean Platelet Volume 10.1 fL (9.4-12.4); Monocytes # 1.5 K/mcL (0.0-1.3); Monocytes % 6.5 %; Neutrophils # 17.8 K/mcL (1.6-8.9); Platelet Count 362 K/mcL (140-400); Red Blood Count 3.51 M/mcL (4.19-5.50); Red Cell Distribution Width 15.1 % (11.5-14.5); Segmented Neutrophils % 78.2 %
[2017-10-15] MEDS: Ketorolac 15 MG/ML VIAL IVP SCH ×4 (07:41→23:52)
[2017-10-15] MEDS: *HR* Heparin 5,000 UNIT/ML VIAL SQ SCH ×2 (07:41→17:38)
[2017-10-15] MEDS: Pantoprazole 40 MG VIAL IVP SCH (09:05)
[2017-10-15] MEDS: Piperacillin/Tazobactam 3.375 GM/200 ML BAG IVPB SCH (09:06)
[2017-10-15 10:45] LABS: BUN/Creatinine Ratio 18 (6-26); Blood Urea Nitrogen 16 mg/dL (6-20); Calcium 8.6 mg/dL (8.6-10.3); Carbon Dioxide 20 mEq/L (23-29); Chloride 103 mEq/L (98-107); Glucose 132 mg/dL (70-105); Magnesium 1.7 mg/dL (1.6-2.6); Osmolality,Calculated 285 (280-300); Phosphorous 2.6 mg/dL (2.7-4.5); Potassium 3.4 mEq/L (3.5-5.1); Sodium 136 mEq/L (136-145); eGFR For African Americans > 60 (> 60); eGFR For Non-African Americans > 60 (> 60)
[2017-10-15] MEDS: ADVAIR DISKUS 250/50 IH SCH ×2 (11:17→22:16)
--- NOTE | 2017-10-15 11:23 | General Surgery Progress Note ---
Date of Encounter: 10/15/17 Time of Encounter: 10:45 - Assessment and Plan (1) Perforated appendix Current Visit: Yes Status: Acute POD #4 Exploratory laparotomy with small bowel resection [address] Armstrong NPO with NG tube while awaiting return of bowel function Continue TPN IV antibiotics- Zosyn Add Diflucan today Supportive care and pain control- PLATE MILL MILL HAND, toradol Ambulate hallways TID with assistance IS every 1 hour while awake PPI therapy daily Check acute abdominal series for possible post-operative ileus Repeat am labs (2) Intra-abdominal abscess Current Visit: No Status: Acute POD #4 Exploratory laparotomy with small bowel resection [address] Armstrong IV antibiotics- Zosyn (3) COPD (chronic obstructive pulmonary disease) Current Visit: Yes Status: Chronic Duonebs every 6 hours scheduled IS every 1 hour while awake Qualifiers: COPD type: unspecified COPD Qualified Code(s): J44.9 - Chronic obstructive pulmonary disease, unspecified (4) Tobacco abuse Current Visit: No Status: Chronic Smoking cessation education (5) DVT prophylaxis Current Visit: No Status: Acute Heparin 5,000 units SQ twice daily for DVT prophylaxis Ambulate hallways 3 times a day with assistance Subjective Patient reports: no new complaints, feels better, still having pain, pain is less, voiding w/o difficulty, no flatus, no bowel movement, afebrile Objective Vital Signs - Last 8 Hours Temp Pulse Resp BP Pulse Ox 10/15/17 09:56 97.9 F 82 16 148/85 94 10/15/17 07:05 98.5 F 89 14 179/91 92 10/15/17 03:50 98.9 F 99 15 167/91 93 Intake and Output 10/14/17 10/15/17 10/15/17 23:59 07:59 15:59 Intake Total 200 / 200 750 / 750 Output Total 1570 / 1570 1260 / 1260 860 / 860 Balance -1370 / -1370 -510 / -510 -860 / -860 Intake: IV Fluids 200 / 200 450 / 450 Intralipid 20% 250 ML @ 21 mls/ 250 / 250 hr IVPB DAILY@1700 [facility] Rx#: [id number] Zosyn Premix 3.375 GM/200 ML 3. 200 / 200 200 / 200 375 gm In 200 ml @ 50 mls/hr IVPB Q8HR [facility] Rx#:[id number] Oral 0 / 0 300 / 300 Output: Urine 1150 / 1150 850 / 850 225 / 225 Gastric Drainage 400 / 400 400 / 400 625 / 625 Right Nare 225 / 225 Wound Drainage Right Abdomen Other: # Voids 2 Weight 68.88 kg Blood Glucose* 135 158 160 Patient Weight 10/15/17 23:59 Weight 68.88 kg - General physical appearance well developed, no distress - Eyes normal ocular movement - ENT dry mucosa, atraumatic, normocephalic - Neck Neck exam: trachea midline - Respiratory normal respiratory effort, clear to auscultation, other (diminished bibasilar bases) - Cardiovascular Cardiovascular exam: Present: RRR - Abdomen Abdomen: Present: bowel sounds present, soft, tender (expected post-operative tenderness), wound (JOAO drain to bulb suction with serousang. drainage noted; NG tube to LIWS with scant amount of bilious drainage noted) - Incision Incision: Present: clean and dry, intact - Neurologic CN 2-12 grossly intact - Psychiatric oriented to time, oriented to person, oriented to place, speech is normal, memory intact - Labs 10/15/17 04:14 10/15/17 04:14 Diabetes panel 10/15/17 Range/Units 04:14 Sodium 136 (136-145) mEq/L Potassium 3.4 L (3.5-5.1) mEq/L Chloride 103 (98-107) mEq/L Carbon Dioxide 20 L (23-29) mEq/L BUN 16 (6-20) mg/dL Creatinine 0.90 (0.70-1.30) mg/dL Glucose 132 H (70-105) mg/dL Calcium 8.6 (8.6-10.3) mg/dL Calcium panel 10/15/17 Range/Units 04:14 Calcium 8.6 (8.6-10.3) mg/dL Phosphorus 2.6 L (2.7-4.5) mg/dL Pituitary panel 10/15/17 Range/Units 04:14 Sodium 136 (136-145) mEq/L Potassium 3.4 L (3.5-5.1) mEq/L Chloride 103 (98-107) mEq/L Carbon Dioxide 20 L (23-29) mEq/L BUN 16 (6-20) mg/dL Creatinine 0.90 (0.70-1.30) mg/dL Glucose 132 H (70-105) mg/dL Calcium 8.6 (8.6-10.3) mg/dL Adrenal panel 10/15/17 Range/Units 04:14 Sodium 136 (136-145) mEq/L Potassium 3.4 L (3.5-5.1) mEq/L Chloride 103 (98-107) mEq/L Carbon Dioxide 20 L (23-29) mEq/L BUN 16 (6-20) mg/dL Creatinine 0.90 (0.70-1.30) mg/dL Glucose 132 H (70-105) mg/dL Calcium 8.6 (8.6-10.3) mg/dL Consult Discharge Plan - Plan Referrals: Gisele Arreaga, MARLEN [Primary Care Provider] - Annette Corral DO [Family Provider] - - Attending Attestation For this encounter, I have reviewed the REGISTERED OCCUPATIONAL THERAPIST or PA documentation, treatment plan, and medical decision making; and I have had face to face time with this patient.
[2017-10-15] MEDS ORDERED: Fluconazole 200 MG/100 ML 200 MG/100 ML BAG IVPB ONE (12:36)
--- NOTE | 2017-10-15 14:23 | Event Note ---
Date of Encounter: 10/15/17 Time of Encounter: 14:22 Advanced NG 5 cm per abd x-ray with NG tip in GE junction. No residual output noted. Pt denies nausea or vomiting. Denies flatus. He has not ambulated. Reinforced the need for ambulation with patient and bedside RN. May clamp IVs for ambulation TID.
[2017-10-15] MEDS ORDERED: Clinimix E 5%-15% SOLUTION 2,000 ML with MVI, adult with vitamin K 10 ML IVC SCH (17:00)
[2017-10-15] MEDS: *HR* OxyCODONE Immed Rel 5 MG TABLET PO PRN (22:37)
[2017-10-16] MEDS: ALBUTEROL INHALER IH SCH ×6 (00:29→20:07)
[2017-10-16] MEDS: *HR* OxyCODONE Immed Rel 5 MG TABLET PO PRN ×3 (04:00→19:43)
[2017-10-16] MEDS: Insulin LISPRO 300 UNITS/3 ML VIAL SQ SCH ×5 (04:01→20:55)
[2017-10-16] MEDS: Ipratropium/Albuterol Neb 3 ML IH SCH ×4 (04:10→20:08)
[2017-10-16 04:24] LABS: Basophils # 0.1 K/mcL (0.0-0.2); Basophils % 0.3 %; Eosinophils # 0.9 K/mcL (0.0-0.6); Eosinophils % 4.8 %; Hematocrit 29.2 % (37.5-50.1); Hemoglobin 9.6 g/dL (12.9-16.9); Immature Granulocytes % 0.6 % (0-4); Lymphocytes # 2.6 K/mcL (0.6-4.6); Lymphocytes % 14.2 %; Mean Corpuscular HGB Conc 32.9 g/dL (31.6-35.5); Mean Corpuscular Hemoglobin 27.8 pg (28.0-33.3); Mean Corpuscular Volume 84.6 fL (83.0-100.0); Mean Platelet Volume 9.7 fL (9.4-12.4); Monocytes # 1.5 K/mcL (0.0-1.3); Monocytes % 7.8 %; Neutrophils # 13.5 K/mcL (1.6-8.9); Platelet Count 374 K/mcL (140-400); Red Blood Count 3.45 M/mcL (4.19-5.50); Red Cell Distribution Width 15.3 % (11.5-14.5); Segmented Neutrophils % 72.3 %
[2017-10-16 04:35] LABS: BUN/Creatinine Ratio 19 (6-26); Blood Urea Nitrogen 16 mg/dL (6-20); Calcium 8.4 mg/dL (8.6-10.3); Carbon Dioxide 26 mEq/L (23-29); Chloride 103 mEq/L (98-107); Glucose 166 mg/dL (70-105); Magnesium 1.7 mg/dL (1.6-2.6); Osmolality,Calculated 289 (280-300); Potassium 3.2 mEq/L (3.5-5.1); Sodium 137 mEq/L (136-145); eGFR For African Americans > 60 (> 60); eGFR For Non-African Americans > 60 (> 60)
[2017-10-16] MEDS: Ketorolac 15 MG/ML VIAL IVP SCH ×3 (05:48→17:23)
[2017-10-16] MEDS: *HR* Heparin 5,000 UNIT/ML VIAL SQ SCH ×2 (05:49→17:23)
[2017-10-16] MEDS: Pantoprazole 40 MG VIAL IVP SCH (07:54)
[2017-10-16] MEDS: ADVAIR DISKUS 250/50 IH SCH ×3 (07:54→22:15)
[2017-10-16] MEDS: Fluconazole 100 MG/50 ML 100 MG/50 ML BAG IVPB SCH (08:06)
[2017-10-16] MEDS ORDERED: Potassium Chloride 40 MEQ, Lidocaine 1% 2 ML in D5% in Water 500 ML IVPB ONE (10:40)
--- NOTE | 2017-10-16 10:51 | General Surgery Progress Note ---
Date of Encounter: 10/16/17 Time of Encounter: 10:30 - Assessment and Plan (1) Perforated appendix Current Visit: Yes Status: Acute POD #5 Exploratory laparotomy with small bowel resection [address] Armstrong Remove NG tube Started limited clear liquids today- 300ml every 8 hours; ensure clear BID Continue TPN IV antibiotics- Zosyn Continue diflucan Supportive care and pain control Ambulate hallways TID with assistance IS every 1 hour while awake PPI therapy daily Repeat am labs (2) Intra-abdominal abscess Current Visit: No Status: Acute POD #5 Exploratory laparotomy with small bowel resection [address] Armstrong IV antibiotics- Zosyn (3) COPD (chronic obstructive pulmonary disease) Current Visit: Yes Status: Chronic Duonebs every 6 hours scheduled IS every 1 hour while awake Qualifiers: COPD type: unspecified COPD Qualified Code(s): J44.9 - Chronic obstructive pulmonary disease, unspecified (4) Tobacco abuse Current Visit: No Status: Chronic Smoking cessation education (5) Hypokalemia Current Visit: Yes Status: Acute Replace potassium Add potassium to TPN bag Repeat am labs (6) DVT prophylaxis Current Visit: No Status: Acute Heparin 5,000 units SQ twice daily for DVT prophylaxis Ambulate hallways 3 times a day with assistance Subjective Patient reports: no new complaints, feels better, still having pain, pain is less, voiding w/o difficulty, flatus, bowel movement, diarrhea, afebrile Objective Vital Signs - Last 8 Hours Temp Pulse Resp BP Pulse Ox 10/16/17 07:44 98.3 F 78 18 169/50 95 10/16/17 03:40 98.9 F 81 14 156/84 95 Intake and Output 10/15/17 10/16/17 10/16/17 23:59 07:59 15:59 Intake Total 100 / 100 1525 / 1525 Output Total 315 / 315 1010 / 1010 250 / 250 Balance -215 / -215 515 / 515 -250 / -250 Intake: IV Fluids 100 / 100 1525 / 1525 Clinimix E 5%-15% SOLUTION 2, 1175 / 1175 000 ML @ 83.3 mls/hr IVC .Q24H [facility] with M.v.i. Adult 10 ml Rx# :[id number] Intralipid 20% 250 ML @ 21 mls/ 250 / 250 hr IVPB DAILY@1700 [facility] Rx#: [id number] Zosyn 3.375 GM In 0.9 % Sodium 100 / 100 100 / 100 Chloride 100 ML @ 25 mls/hr IVPB Q8HR [facility] Rx#:[id number] Oral 0 / 0 0 / 0 Output: Urine 300 / 300 1000 / 1000 250 / 250 Wound Drainage 15 10 / 10 0 / 0 Right Abdomen 10 0 / 0 Other: Meal npo Stool Size Large Stool Consistency liquid # Bowel Movements 1 Weight 68.629 kg Blood Glucose* 165 150 Patient Weight 10/16/17 23:59 Weight 68.629 kg - General physical appearance well developed, well nourished, no distress - Eyes normal ocular movement - ENT normal mucosa, atraumatic, normocephalic - Neck Neck exam: trachea midline - Respiratory normal respiratory effort, clear to auscultation - Cardiovascular Cardiovascular exam: Present: RRR - Abdomen Abdomen: Present: bowel sounds present, soft, tender (expected post-operative tenderness), wound (JOAO drain to bulb suction with serousang. drainage noted ( 10ml since midnight)) - Incision Incision: Present: clean and dry, intact - Integumentary no rash, no growths, no abnormal pigmentation - Neurologic CN 2-12 grossly intact, normal coordination, normal sensation - Musculoskeletal normal gait, normal posture - Psychiatric oriented to time, oriented to person, oriented to place, speech is normal, memory intact - Labs 10/16/17 04:10 10/16/17 04:10 Diabetes panel 10/16/17 Range/Units 04:10 Sodium 137 (136-145) mEq/L Potassium 3.2 L (3.5-5.1) mEq/L Chloride 103 (98-107) mEq/L Carbon Dioxide 26 (23-29) mEq/L BUN 16 (6-20) mg/dL Creatinine 0.86 (0.70-1.30) mg/dL Glucose 166 H (70-105) mg/dL Calcium 8.4 L (8.6-10.3) mg/dL Calcium panel 10/16/17 Range/Units 04:10 Calcium 8.4 L (8.6-10.3) mg/dL Phosphorus 3.0 (2.7-4.5) mg/dL Pituitary panel 10/16/17 Range/Units 04:10 Sodium 137 (136-145) mEq/L Potassium 3.2 L (3.5-5.1) mEq/L Chloride 103 (98-107) mEq/L Carbon Dioxide 26 (23-29) mEq/L BUN 16 (6-20) mg/dL Creatinine 0.86 (0.70-1.30) mg/dL Glucose 166 H (70-105) mg/dL Calcium 8.4 L (8.6-10.3) mg/dL Adrenal panel 10/16/17 Range/Units 04:10 Sodium 137 (136-145) mEq/L Potassium 3.2 L (3.5-5.1) mEq/L Chloride 103 (98-107) mEq/L Carbon Dioxide 26 (23-29) mEq/L BUN 16 (6-20) mg/dL Creatinine 0.86 (0.70-1.30) mg/dL Glucose 166 H (70-105) mg/dL Calcium 8.4 L (8.6-10.3) mg/dL Consult Discharge Plan - Plan Referrals: Gisele Arreaga CNP [Primary Care Provider] - Annette Corral DO [Family Provider] - - Attending Attestation For this encounter, I have reviewed the CAR MANAGER or PA documentation, treatment plan, and medical decision making; and I have had face to face time with this patient.
[2017-10-16] MEDS ORDERED: Clinimix E 5%-15% SOLUTION 2,000 ML with MVI, adult with vitamin K 10 ML, Potassium A... IVC SCH (17:00)
[2017-10-17] MEDS: ALBUTEROL INHALER IH SCH ×7 (00:05→23:36)
[2017-10-17] MEDS: Ketorolac 15 MG/ML VIAL IVP SCH ×4 (00:10→17:39)
[2017-10-17] MEDS: Insulin LISPRO 300 UNITS/3 ML VIAL SQ SCH ×6 (01:06→21:49)
[2017-10-17] MEDS: Ipratropium/Albuterol Neb 3 ML IH SCH ×4 (03:52→21:48)
[2017-10-17 04:51] LABS: Basophils # 0.1 K/mcL (0.0-0.2); Basophils % 0.5 %; Eosinophils # 1.4 K/mcL (0.0-0.6); Eosinophils % 9.6 %; Hematocrit 26.3 % (37.5-50.1); Hemoglobin 8.6 g/dL (12.9-16.9); Immature Granulocytes % 0.4 % (0-4); Lymphocytes % 19.9 %; Mean Corpuscular HGB Conc 32.7 g/dL (31.6-35.5); Mean Corpuscular Hemoglobin 27.8 pg (28.0-33.3); Mean Corpuscular Volume 85.1 fL (83.0-100.0); Mean Platelet Volume 9.8 fL (9.4-12.4); Monocytes # 1.6 K/mcL (0.0-1.3); Monocytes % 10.6 %; Neutrophils # 8.8 K/mcL (1.6-8.9); Platelet Count 345 K/mcL (140-400); Red Blood Count 3.09 M/mcL (4.19-5.50); Red Cell Distribution Width 15.3 % (11.5-14.5)
[2017-10-17] MEDS: *HR* OxyCODONE Immed Rel 5 MG TABLET PO PRN ×4 (05:12→21:49)
[2017-10-17] MEDS: *HR* Heparin 5,000 UNIT/ML VIAL SQ SCH ×2 (05:13→17:40)
[2017-10-17 05:15] LABS: BUN/Creatinine Ratio 16 (6-26); Blood Urea Nitrogen 15 mg/dL (6-20); Calcium 8.3 mg/dL (8.6-10.3); Carbon Dioxide 26 mEq/L (23-29); Chloride 103 mEq/L (98-107); Glucose 151 mg/dL (70-105); Osmolality,Calculated 284 (280-300); Potassium 3.5 mEq/L (3.5-5.1); Sodium 135 mEq/L (136-145); eGFR For African Americans > 60 (> 60); eGFR For Non-African Americans > 60 (> 60)
[2017-10-17] MEDS: Fluconazole 100 MG/50 ML 100 MG/50 ML BAG IVPB SCH (08:01)
[2017-10-17] MEDS: Pantoprazole 40 MG VIAL IVP SCH (08:05)
[2017-10-17] MEDS: ADVAIR DISKUS 250/50 IH SCH ×2 (08:05→21:50)
--- NOTE | 2017-10-17 11:03 | General Surgery Progress Note ---
Date of Encounter: 10/17/17 Time of Encounter: 10:55 - Assessment and Plan (1) Perforated appendix Current Visit: Yes Status: Acute POD #6 Exploratory laparotomy with small bowel resection [address] Armstrong Advance to full liquids today Ensure HP (strawberry) TID with meals Continue TPN IV antibiotics- Zosyn Continue diflucan Supportive care and pain control Ambulate hallways TID with assistance IS every 1 hour while awake PPI therapy daily Repeat am labs- CBC (2) Intra-abdominal abscess Current Visit: No Status: Acute POD #6 Exploratory laparotomy with small bowel resection [address] Armstrong IV antibiotics- Zosyn (3) COPD (chronic obstructive pulmonary disease) Current Visit: Yes Status: Chronic Duonebs every 6 hours scheduled IS every 1 hour while awake Qualifiers: COPD type: unspecified COPD Qualified Code(s): J44.9 - Chronic obstructive pulmonary disease, unspecified (4) Tobacco abuse Current Visit: No Status: Chronic Smoking cessation education (5) Hypokalemia Current Visit: Yes Status: Resolved Continue potassium in TPN bag Repeat am labs (6) DVT prophylaxis Current Visit: No Status: Acute Heparin 5,000 units SQ twice daily for DVT prophylaxis Ambulate hallways 3 times a day with assistance Subjective Patient reports: no new complaints, feels better, still having pain, pain is less, tolerating liquids well, voiding w/o difficulty, flatus, bowel movement, diarrhea, afebrile Objective Vital Signs - Last 8 Hours Temp Pulse Resp BP Pulse Ox 10/17/17 10:56 97.9 F 94 16 103/58 95 10/17/17 06:20 98.0 F 80 14 143/81 95 10/17/17 03:43 98.3 F 77 14 137/80 94 Intake and Output 10/16/17 10/17/17 10/17/17 23:59 07:59 15:59 Intake Total 912 / 912 350 / 350 250 / 250 Output Total 1000 / 1000 925 / 925 Balance -88 / -88 -575 / -575 230 / 230 Intake: IV Fluids 792 / 792 350 / 350 50 / 50 Clinimix E 5%-15% SOLUTION 2, 692 / 692 000 ML @ 83.3 mls/hr IVC .Q24H [facility] with M.v.i. Adult 10 ml Rx# :[id number] Intralipid 20% 250 ML @ 21 mls/ 250 / 250 hr IVPB DAILY@1700 [facility] Rx#: [id number] Diflucan 100 MG/50 ML 100 mg In 50 / 50 50 ml @ 50 mls/hr IVPB DAILY [facility] Rx#:[id number] Zosyn 3.375 GM In 0.9 % Sodium 100 / 100 100 / 100 Chloride 100 ML @ 25 mls/hr IVPB Q8HR [facility] Rx#:[id number] Oral 120 / 120 0 / 0 200 / 200 Output: Urine 1000 / 1000 925 / 925 0 / 0 Wound Drainage 0 / 0 20 / 20 Right Abdomen 0 / 0 20 / 20 Other: # Bowel Movements 0 0 Weight 68.538 kg Blood Glucose* 164 156 Patient Weight 10/17/17 23:59 Weight 68.538 kg - General physical appearance well developed, no distress, moderate pain (improving) - Eyes normal ocular movement - ENT normal mucosa, atraumatic, normocephalic - Neck Neck exam: trachea midline - Respiratory normal respiratory effort, clear to auscultation - Cardiovascular Cardiovascular exam: Present: RRR - Abdomen Abdomen: Present: bowel sounds present, soft, tender (expected post-operative tenderness), wound (JOAO drian to bulb suction with serousang. drainage noted ( old blood)) - Incision Incision: Present: clean and dry, intact - Neurologic CN 2-12 grossly intact - Musculoskeletal normal gait, normal posture - Psychiatric oriented to time, oriented to person, oriented to place, speech is normal, memory intact - Labs 10/17/17 04:35 10/17/17 04:35 Diabetes panel 10/17/17 Range/Units 04:35 Sodium 135 L (136-145) mEq/L Potassium 3.5 (3.5-5.1) mEq/L Chloride 103 (98-107) mEq/L Carbon Dioxide 26 (23-29) mEq/L BUN 15 (6-20) mg/dL Creatinine 0.91 (0.70-1.30) mg/dL Glucose 151 H (70-105) mg/dL Calcium 8.3 L (8.6-10.3) mg/dL Calcium panel 10/17/17 Range/Units 04:35 Calcium 8.3 L (8.6-10.3) mg/dL Pituitary panel 10/17/17 Range/Units 04:35 Sodium 135 L (136-145) mEq/L Potassium 3.5 (3.5-5.1) mEq/L Chloride 103 (98-107) mEq/L Carbon Dioxide 26 (23-29) mEq/L BUN 15 (6-20) mg/dL Creatinine 0.91 (0.70-1.30) mg/dL Glucose 151 H (70-105) mg/dL Calcium 8.3 L (8.6-10.3) mg/dL Adrenal panel 10/17/17 Range/Units 04:35 Sodium 135 L (136-145) mEq/L Potassium 3.5 (3.5-5.1) mEq/L Chloride 103 (98-107) mEq/L Carbon Dioxide 26 (23-29) mEq/L BUN 15 (6-20) mg/dL Creatinine 0.91 (0.70-1.30) mg/dL Glucose 151 H (70-105) mg/dL Calcium 8.3 L (8.6-10.3) mg/dL Consult Discharge Plan - Plan Referrals: Gisele Arreaga, MARLEN [Primary Care Provider] - Annette Corral DO [Family Provider] - - Attending Attestation For this encounter, I have reviewed the AUXILIARY POWERPLANT OPERATOR or PA documentation, treatment plan, and medical decision making; and I have had face to face time with this patient.
[2017-10-17] MEDS ORDERED: Clinimix E 5%-15% SOLUTION 2,000 ML with MVI, adult with vitamin K 10 ML IVC SCH (17:00)
[2017-10-18] MEDS: Insulin LISPRO 300 UNITS/3 ML VIAL SQ SCH ×6 (00:57→20:57)
[2017-10-18] MEDS: Ketorolac 15 MG/ML VIAL IVP SCH ×4 (00:58→17:05)
[2017-10-18] MEDS: Ipratropium/Albuterol Neb 3 ML IH SCH ×4 (04:05→22:05)
[2017-10-18] MEDS: ALBUTEROL INHALER IH SCH ×6 (04:05→23:57)
[2017-10-18 04:54] LABS: Basophils # 0.1 K/mcL (0.0-0.2); Basophils % 0.4 %; Eosinophils # 1.2 K/mcL (0.0-0.6); Eosinophils % 6.3 %; Hematocrit 24.6 % (37.5-50.1); Hemoglobin 8.1 g/dL (12.9-16.9); Immature Granulocytes % 0.5 % (0-4); Lymphocytes # 2.7 K/mcL (0.6-4.6); Lymphocytes % 14.9 %; Mean Corpuscular HGB Conc 32.9 g/dL (31.6-35.5); Mean Corpuscular Hemoglobin 27.9 pg (28.0-33.3); Mean Corpuscular Volume 84.8 fL (83.0-100.0); Mean Platelet Volume 9.5 fL (9.4-12.4); Monocytes % 10.8 %; Neutrophils # 12.2 K/mcL (1.6-8.9); Platelet Count 350 K/mcL (140-400); Red Cell Distribution Width 15.4 % (11.5-14.5); Segmented Neutrophils % 67.1 %
[2017-10-18 05:15] LABS: BUN/Creatinine Ratio 19 (6-26); Blood Urea Nitrogen 19 mg/dL (6-20); Calcium 8.5 mg/dL (8.6-10.3); Carbon Dioxide 25 mEq/L (23-29); Chloride 101 mEq/L (98-107); Glucose 115 mg/dL (70-105); Osmolality,Calculated 283 (280-300); Potassium 4.1 mEq/L (3.5-5.1); Sodium 135 mEq/L (136-145); eGFR For African Americans > 60 (> 60); eGFR For Non-African Americans > 60 (> 60)
[2017-10-18] MEDS: *HR* Heparin 5,000 UNIT/ML VIAL SQ SCH ×2 (06:10→17:06)
[2017-10-18] MEDS: Pantoprazole 40 MG VIAL IVP SCH (08:12)
[2017-10-18] MEDS: ADVAIR DISKUS 250/50 IH SCH ×2 (08:13→21:02)
[2017-10-18] MEDS: Fluconazole 100 MG/50 ML 100 MG/50 ML BAG IVPB SCH (09:16)
--- NOTE | 2017-10-18 12:18 | General Surgery Progress Note ---
Date of Encounter: 10/18/17 Time of Encounter: 12:00 - Assessment and Plan (1) Perforated appendix Current Visit: Yes Status: Acute POD #7 Exploratory laparotomy with small bowel resection [address] Armstrong Continue full liquids today Ensure HP (strawberry) TID with meals Wean TPN and stop at 1700 IV antibiotics- Zosyn Continue diflucan Supportive care and pain control Ambulate hallways TID with assistance IS every 1 hour while awake PPI therapy daily Repeat am labs- CBC Wound care- Midline packing with 1/4 inch plain gauze, cover with 4X4 gauze and tape to secure daily with medipore. (2) Intra-abdominal abscess Current Visit: No Status: Acute POD #7 Exploratory laparotomy with small bowel resection [address] Armstrong IV antibiotics- Zosyn (3) COPD (chronic obstructive pulmonary disease) Current Visit: Yes Status: Chronic Duonebs every 6 hours scheduled IS every 1 hour while awake Qualifiers: COPD type: unspecified COPD Qualified Code(s): J44.9 - Chronic obstructive pulmonary disease, unspecified (4) Tobacco abuse Current Visit: No Status: Chronic Smoking cessation education (5) Hypokalemia Current Visit: Yes Status: Resolved (6) Pulmonary nodules Current Visit: Yes Status: Chronic CT of chest recommended for further evaluation of pulmonary nodules (7) DVT prophylaxis Current Visit: No Status: Acute Heparin 5,000 units SQ twice daily for DVT prophylaxis Ambulate hallways 3 times a day with assistance Subjective Patient reports: no new complaints, still having pain ("gas pains"), tolerating liquids well (full liquids), voiding w/o difficulty, flatus, bowel movement, fever (Tmax 100.7, Tcurrent- 98.3), other (complaint of cough today) Objective Vital Signs - Last 8 Hours Temp Pulse Resp BP Pulse Ox 10/18/17 06:51 98.3 F 80 15 128/76 94 Intake and Output 10/17/17 10/18/17 10/18/17 23:59 07:59 15:59 Intake Total 869 / 869 100 / 100 120 / 120 Output Total 980 / 980 850 / 850 Balance -111 / -111 -750 / -750 120 / 120 Intake: IV Fluids 629 / 629 100 / 100 Zosyn 3.375 GM In 0.9 % Sodium 100 / 100 100 / 100 Chloride 100 ML @ 25 mls/hr IVPB Q8HR [facility] Rx#:[id number] Oral 240 / 240 0 / 0 120 / 120 Output: Urine 950 / 950 850 / 850 Straight Cath 0 / 0 Wound Drainage Right Abdomen Other: Meal Clear Breakfast Percent of Meal Consumed 0% 0% Weight 68.22 kg Blood Glucose* 148 176 Patient Weight 10/18/17 23:59 Weight 68.22 kg - General physical appearance well developed, no distress - Eyes normal ocular movement - ENT normal mucosa, atraumatic, normocephalic - Neck Neck exam: trachea midline - Respiratory normal respiratory effort, clear to auscultation, other (diminished bibasilar bases, dry cough noted) - Cardiovascular Cardiovascular exam: Present: RRR - Abdomen Abdomen: Present: bowel sounds present, soft, tender (expected post-operative tenderness), wound (JOAO to bulb suction with old blood tinged drainage noted) - Incision Incision: Present: purulent (Midline with purulent discharge noted from top of wound (staple removed and packing placed)) - Neurologic CN 2-12 grossly intact - Musculoskeletal normal gait, normal posture - Psychiatric oriented to time, oriented to person, oriented to place, speech is normal, memory intact - Labs 10/18/17 04:40 10/18/17 04:40 Diabetes panel 10/18/17 Range/Units 04:40 Sodium 135 L (136-145) mEq/L Potassium 4.1 (3.5-5.1) mEq/L Chloride 101 (98-107) mEq/L Carbon Dioxide 25 (23-29) mEq/L BUN 19 (6-20) mg/dL Creatinine 0.98 (0.70-1.30) mg/dL Glucose 115 H (70-105) mg/dL Calcium 8.5 L (8.6-10.3) mg/dL Calcium panel 10/18/17 Range/Units 04:40 Calcium 8.5 L (8.6-10.3) mg/dL Pituitary panel 10/18/17 Range/Units 04:40 Sodium 135 L (136-145) mEq/L Potassium 4.1 (3.5-5.1) mEq/L Chloride 101 (98-107) mEq/L Carbon Dioxide 25 (23-29) mEq/L BUN 19 (6-20) mg/dL Creatinine 0.98 (0.70-1.30) mg/dL Glucose 115 H (70-105) mg/dL Calcium 8.5 L (8.6-10.3) mg/dL Adrenal panel 10/18/17 Range/Units 04:40 Sodium 135 L (136-145) mEq/L Potassium 4.1 (3.5-5.1) mEq/L Chloride 101 (98-107) mEq/L Carbon Dioxide 25 (23-29) mEq/L BUN 19 (6-20) mg/dL Creatinine 0.98 (0.70-1.30) mg/dL Glucose 115 H (70-105) mg/dL Calcium 8.5 L (8.6-10.3) mg/dL - VTE Documentation of Mechanical Device: Intermittent pneumatic compression device Consult Discharge Plan - Plan Referrals: Gisele Arreaga CNP [Primary Care Provider] - Annette Corral DO [Family Provider] -
[2017-10-18] MEDS: *HR* OxyCODONE Immed Rel 5 MG TABLET PO PRN (23:05)
[2017-10-19] MEDS: Ketorolac 15 MG/ML VIAL IVP SCH ×4 (00:01→16:49)
[2017-10-19] MEDS: Insulin LISPRO 300 UNITS/3 ML VIAL SQ SCH ×5 (00:05→16:50)
[2017-10-19] MEDS: Ipratropium/Albuterol Neb 3 ML IH SCH ×4 (04:31→19:55)
[2017-10-19] MEDS: ALBUTEROL INHALER IH SCH ×6 (04:31→23:09)
[2017-10-19 04:43] LABS: Basophils # 0.1 K/mcL (0.0-0.2); Basophils % 0.3 %; Eosinophils # 1.1 K/mcL (0.0-0.6); Eosinophils % 6.2 %; Hemoglobin 8.2 g/dL (12.9-16.9); Immature Granulocytes % 0.5 % (0-4); Lymphocytes # 2.9 K/mcL (0.6-4.6); Lymphocytes % 16.4 %; Mean Corpuscular HGB Conc 32.8 g/dL (31.6-35.5); Mean Corpuscular Hemoglobin 27.7 pg (28.0-33.3); Mean Corpuscular Volume 84.5 fL (83.0-100.0); Mean Platelet Volume 9.7 fL (9.4-12.4); Monocytes # 1.8 K/mcL (0.0-1.3); Monocytes % 10.1 %; Neutrophils # 11.6 K/mcL (1.6-8.9); Platelet Count 393 K/mcL (140-400); Red Blood Count 2.96 M/mcL (4.19-5.50); Red Cell Distribution Width 15.6 % (11.5-14.5); Segmented Neutrophils % 66.5 %
[2017-10-19] MEDS: *HR* Heparin 5,000 UNIT/ML VIAL SQ SCH ×2 (05:10→16:49)
[2017-10-19] MEDS: Fluconazole 100 MG/50 ML 100 MG/50 ML BAG IVPB SCH (08:13)
[2017-10-19] MEDS: Pantoprazole 40 MG VIAL IVP SCH (08:14)
[2017-10-19] MEDS: ADVAIR DISKUS 250/50 IH SCH ×2 (08:57→19:55)
--- NOTE | 2017-10-19 16:10 | Discharge Summary ---
Date of Encounter: 10/19/17 Time of Encounter: 16:00 - Discharge Diagnosis (1) Perforated appendix Priority: Primary Status: Resolved (2) Intra-abdominal abscess Priority: Secondary Status: Resolved (3) COPD (chronic obstructive pulmonary disease) Priority: Secondary Status: Chronic Qualifiers: COPD type: unspecified COPD Qualified Code(s): J44.9 - Chronic obstructive pulmonary disease, unspecified (4) Tobacco abuse Priority: Secondary Status: Chronic (5) Hypokalemia Priority: Secondary Status: Resolved (6) Pulmonary nodules Priority: Secondary Status: Chronic - Discharge Medications Prescriptions: OxyCODONE/APAP 5/325 [Percocet 5/325 MG] 1 each PO Q6HR PRN 5 Days #20 tablet PRN Reason: Pain Home Medications: Loratadine [Claritin] 10 mg PO DAILY 09/10/17 [History] Albuterol Sulfate [Ventolin Hfa] 2 puff IH Q6H PRN 09/20/17 [History] Fluticasone/Salmeterol [Advair 250-50 Diskus] 1 puff IH BID 09/20/17 [History] Omeprazole 20 mg PO DAILY 09/20/17 [History] Amoxicillin/Clavulanate [Augmentin] 875 mg PO BIDWM #20 tablet 10/08/17 [Rx] Docusate [Colace] 100 mg PO BID #30 capsule 10/08/17 [Rx] OxyCODONE/APAP 5/325 [Percocet 5/325 MG] 1 each PO Q6HR PRN 5 Days #20 tablet [Rx] Allergies/Adverse Reactions: 3 Allergy/AdvReac Type Severity Reaction Status Date / Time No Known Allergies Allergy Verified 10/03/17 10:53 General Surgery Exam Initial Vital Signs Pulse Resp BP Pulse Ox 75 16 141/88 97 10/10/17 11:06 10/10/17 11:06 10/10/17 11:06 10/10/17 11:06 - General physical appearance well developed, well nourished, no distress, no pain - Eyes normal ocular movement - Cardiovascular Cardiovascular exam: Present: RRR - Abdomen Abdomen general surgery: Present: bowel sounds present, soft, tender (Minimal, expected postoperative tenderness), wound (JOAO drain with old blood noted) - Incision Incision: Present: open (Midline linsey with open area at the top with small amount of purulent drainage noted.) - Integumentary Integumentary general surgery: Present: warm and dry - Neurologic Present: CN 2-12 grossly intact - Musculoskeletal Present: normal gait, normal posture - Psychiatric Psychiatric general surgery: Present: appropriate, oriented to person, oriented to place, oriented to time, speech is normal, memory intact Date of admission: 10/10/17 13:20 Primary care physician: Gisele Arreaga Consults: 10/11/17 10:17 Consult to Invasive Line Access Team [CONS] Routine Reason for Consult: Picc Line Insertion Line Type: PICC PICC line indications: Parental nutrition Consult to Nutrition [CONS] Routine Comment: Consulting Provider: NUTRITION Reason for Dietary Consult: TPN Start and Manage Other:: Total IVF (MIV and TPN) titrate to TPN goal 10/12/17 12:07 Consult to Respiratory Therapy [CONS] Routine Reason for Consult: Aggressive pulmonary toileting and scheduled duonebs in the setting of smoking history and recent open surgical procedure Call Completed: No 10/19/17 16:05 Consult to Physical Chemist [CONS] Stat Reason for SW Consult: discharge today; will need home health care for wound packing and JOAO drain care Discharging clinician: Qamar Neal) Anticipated date of discharge: 10/19/17 - Patient Status Disposition: Home Health Service Condition: Good Functional capacity at discharge: independent ambulation Overall status at discharge: patient is progressing back to baseline - Discharge Instructions Follow Up With: Gisele Arreaga CNP [Primary Care Provider] - Annette Corral DO [Family Provider] - Damari Neal CNP [Advanced Practice Nurse] - Chantelle Monet CNP [Advanced Practice Nurse] - 10/26/17 10:00 am (hospital follow-up) Additional Instructions: #1 may shower, no tub bath for 2 weeks #2 wash incisions with soap and water and pat dry daily #3 no lifting, pushing, pulling more than 15 pounds for the next 4 weeks #4 no driving until off narcotics for 24 hours and able to safely react in the car #5 may climb stairs JOAO drain- cleanse around drain with soap and water in the shower daily, apply dry dressing and tape to secure daily. NT drained 2 times daily and record outputs (ml) and bring to follow up with Chantelle Monet on 10/26/2017 Midline wound- cleanse the wound with soap and water in the shower daily and pat dry, packed with a quarter inch plain gauze, cover with dry dressing, tape to secure - Diet and Activity Activity: other (See additional instructions above) Diet: regular diet - Hospital Course Hospital course: Mr. Giraldo is a 57 year old male who failed conservative treatment for suspected perforated diverticulitis. The patient was readmitted to the hospital a total of 3 times with recurrent pain. He was taken to the operating room with Dr. Armstrong for exploratory laparotomy and was found to have a perforated appendicitis. He did undergo small bowel resection 2 and an appendectomy. The patient did remain on IV antibiotics and IV fluids postoperatively. He remained on bowel rest while awaiting return of bowel function. With return of bowel function, his NG tube was removed. He was on TPN therapy for nutritional support while he was on bowel rest. The patient's diet is slowly been advanced and he is currently tolerating a soft diet without nausea or vomiting. His laboratory values are trending towards normal. His vital signs are stable and afebrile. His postoperative pain is very well controlled with oral pain medication. He is voiding and ambulate without difficulty. We will transition him to oral antibiotics and begin discharge planning to home. The patient will follow-up in the office in one week. - Time Spent with Patient Total time spent providing and/or coordinating discharge services: Less than 30 minutes Labs on day of discharge: Labs from last 24 hours 10/19/17 10/19/17 10/19/17 08:36 04:00 03:52 WBC 17.4 H RBC 2.96 L Hgb 8.2 L Hct 25.0 L MCV 84.5 MCH 27.7 L MCHC 32.8 RDW 15.6 H Plt Count 393 MPV 9.7 Immature Gran % 0.5 Seg Neutrophils % 66.5 Lymphocytes % 16.4 Monocytes % 10.1 Eosinophils % 6.2 Basophils % 0.3 Neutrophils # 11.6 H Lymphocytes # 2.9 Monocytes # 1.8 H Eosinophils # 1.1 H Basophils # 0.1 POC Glucose 117 H 125 H 10/18/17 10/18/17 10/18/17 23:36 20:47 16:51 WBC RBC Hgb Hct MCV MCH MCHC RDW Plt Count MPV Immature Gran % Seg Neutrophils % Lymphocytes % Monocytes % Eosinophils % Basophils % Neutrophils # Lymphocytes # Monocytes # Eosinophils # Basophils # POC Glucose 131 H 207 H 181 H - Impressions ITS Impressions Chest/Abdomen X-ray 10/15/17 10:30 IMPRESSION: 1. Multiple air-fluid levels in the abdomen in a pattern suggestive of an ileus. 2. Enteric catheter tip is just distal to the GE junction. Recommend advancing catheter to ensure that the side hole is beyond the GE junction. 3. Multiple pulmonary nodular densities as previously noted, not appreciably changed. Recommend CT of the chest for further evaluation. D/ / John Madison MD / John Madison MD Interpreting Provider: John Madison MD Chest CT 10/18/17 13:06 IMPRESSION: *There are multifocal calcified and noncalcified pulmonary nodules noted throughout the lungs which are of uncertain etiology, however, are concerning for metastatic disease. Tissue sampling and/or PET/CT are recommended for further evaluation. *There is an area of consolidation noted in the right lung base which is likely related to improving pneumonia versus residual atelectasis. *Mild distention of small-bowel loops in the left upper quadrant of the abdomen, incompletely imaged, likely related to an ileus versus bowel obstruction. *Emphysema. *Atherosclerotic disease. D/ / 10/18/2017 15:10:30 Obey Duffy MD / miguel Interpreting Provider: Obey Duffy MD - Attending Attestation For this encounter, I have reviewed the VETERINARY RADIOLOGIST or PA documentation, treatment plan, and medical decision making; and I have had face to face time with this patient.
[2017-10-19 16:12] VITALS: BP 146/83
== END 2017-10-19 19:00 | disposition home health service (06) | DRG 330 ==
LOC: 2SOUTHHOLD → 3ANU 13:15
PROVIDERS: ADMIT Surgery; ATTEND Surgery
PROC: GENAPPY (ICD-10-PCS; 2017-10-11 17:30)

== ENCOUNTER 2017-11-13 14:44 | Inpatient (IN) ==
--- NOTE | 2017-11-13 15:22 | Emergency Department Note ---
Disposition Clinical Impression: Pneumothorax, right Disposition: Admitted As Inpatient Condition: Good Referrals: NONE,PCP [Primary Care Provider] - Annette Corral DO [Family Provider] - Time of Disposition: 15:10 General Adult HPI - General Chief complaint: ED General Medical Stated complaint: new pneumothorax Time Seen by Provider: 11/13/17 14:56 Source: patient Limitations: no limitations Nursing Notes Reviewed: Yes Vital Signs Reviewed: Yes - History of Present Illness HPI Narrative: 57-year-old male presents emergency Department with concerns of right-sided pneumothorax. Patient had right upper lobe mass biopsied by interventional radiology. After the biopsy there was a pneumothorax visualized on imaging. A pigtail catheter was placed with improvement of the patient's difficulty in breathing. Patient is now satting 98% with no difficulty. Patient was transferred to the emergency department to be admitted to the hospital for further care and evaluation of his right-sided pneumothorax. Patient was in his usual state of health prior to the biopsy. No other trauma. Does not take blood thinners. Pain Scale: 0 - Related Data Home Medications Medication Instructions Recorded Confirmed Loratadine [Claritin] 10 mg PO DAILY 09/10/17 10/31/17 Albuterol Sulfate [Ventolin Hfa] 2 puff IH Q6H PRN 09/20/17 10/31/17 Fluticasone/Salmeterol [Advair 1 puff IH BID 09/20/17 10/31/17 250-50 Diskus] Omeprazole 20 mg PO DAILY 09/20/17 10/31/17 Ibuprofen 800 mg PO TID 10/31/17 10/31/17 Previous Rx's Medication Instructions Recorded Docusate [Colace] 100 mg PO BID #30 capsule 10/08/17 OxyCODONE/APAP 5/325 [Percocet 1 each PO Q6HR PRN 5 Days #20 10/19/17 5/325 MG] tablet Allergies Allergy/AdvReac Type Severity Reaction Status Date / Time No Known Allergies Allergy Verified 10/31/17 14:21 All systems ED: reviewed and negative except as stated. Review of Systems: As Per HPI Constitutional: Denies: fever, chills, weakness Cardiovascular: Reports: chest pain Respiratory: Reports: dyspnea Gastrointestinal: Denies: abdominal pain, nausea, vomiting, diarrhea, hematemesis, melena Past Medical History - Past Medical History Attestation: Yes The following information was validated with the patient. Source: patient Medical history: Reports: asthma, COPD, GERD, other Surgical history: Reports: no surgical history Psychiatric history: Reports: no psych history - Social History Smoking Status: Current every day smoker Smokeless Tobacco Status: No Alcohol use: Reports: none Drug use: Reports: marijuana Physical Exam General: Alert and in no acute distress Skin: Warm, dry, intact Head: Normocephalic and atraumatic Neck: Supple, trachea midline and no tenderness Cardiovascular: RRR, no murmur, normal perfusion Respiratory: CTAB, no wheezing, cough, or respiratory distress. Pigtail catheter in place and right anterior upper chest. Musculoskeletal: Normal strength, no tenderness, swelling or deformity GI: Soft, nontender, nondistended. Bowel sounds present Neuro: A&O to person, place, time and situation. No focal deficits noted on exam Psychiatric: cooperative and appropriate mood and affect. - General Limitations: no limitations General appearance: alert, in no apparent distress Course Vital Signs Temperature 98.1 F 11/13/17 14:54 Pulse Rate 81 11/13/17 14:54 Respiratory Rate 18 11/13/17 14:54 Blood Pressure 169/123 11/13/17 14:54 O2 Sat by Pulse Oximetry 97 11/13/17 14:54 Temperature 98.1 F 11/13/17 14:54 Pulse Rate 81 11/13/17 14:54 Respiratory Rate 18 11/13/17 14:54 Blood Pressure 169/123 11/13/17 14:54 O2 Sat by Pulse Oximetry 97 11/13/17 14:54 Oxygen Delivery Oxygen Delivery Room Air Medical Decision Making - MDM Narrative Medical decision making narrative: I spoke with Dr. Fernandez the cardiothoracic surgeon who agreed to see the patient in the a.m. He recommended admission to the hospitalist for further care and evaluation. - Medical Records Medical records reviewed: Yes I reviewed the patient's medical records. - Lab Data Lab results reviewed: Yes I reviewed the patient's lab results. - Radiology Data Radiology results reviewed: Yes I reviewed the patient's radiology results.
[2017-11-13] MEDS ORDERED: *HR* FentaNYL (PF) 100 MCG/2 ML VIAL IVP ONE (16:48)
[2017-11-13] MEDS ORDERED: Naloxone 0.4 MG/ML INJ IVP PRN (21:41)
--- NOTE | 2017-11-13 21:50 | Internal Med History&Physical ---
<Marilin Bonner - Last Filed: 11/14/17 03:38> Date of Encounter: 11/14/17 Time of Encounter: 21:00 Assessment and Plan (1) Pneumothorax, right Current visit: Yes Status: Acute Right sided pneumothorax seen on imaging s/p CT-guided core biopsy of right lung mass today. CT-guided chest tube placement today, f/u CXR shows 0.5 cm decrease in size of pneumothorax (now 1.3 cm from pleural margin). Increased consolidation in right lung was also seen on today's CXRs, might be related to hemorrhage or edema after biopsy. - Chest tube to wall suction - Routine care of chest tube - Cardiothoracic surgery (Dr. Fernandez) agreed to see pt in morning, per ED report - Repeat CXR in morning to reassess size of pneumothorax (2) Pulmonary nodules Current visit: Yes Status: Chronic Nodules first seen on 10/15/[address] chest 10/18/17 shows multifocal noncalcified and calcified pulmonary nodules throughout the lungs, predominantly in the upper lobes; largest nodules seen in RUL, measure 2.3 x 2.0 cm and 1.9 x 1.9 cm. Recommendations at the time were for tissue sampling and/or PET/CT imaging to better evaluate nodules for concerns of malignancy. Seen by Dr. Burleson of oncology 10/31/[address]-guided biopsy of a pulmonary nodule, which was done today. Etiology not certain (awaiting path results), but suspicion for malignancy in setting of chronic tobacco abuse. (3) COPD (chronic obstructive pulmonary disease) Current visit: Yes Status: Chronic Takes Advair and Ventolin at home. Not on home oxygen. - Continue bronchodilator and corticosteroid inhalers Qualifiers: COPD type: emphysema Emphysema type: unspecified Qualified Code(s): J43.9 - Emphysema, unspecified (4) DVT prophylaxis Current visit: Yes Status: Acute SCDs for now Internal Medicine - H&P: HPI Chief complaint: right pneumothorax History of present illness: Mr. Giraldo is a 57 year old male who presents to the ED with c/o right pneumothorax after interventional radiology performed a CT-guided core biopsy of a right lung mass today. Pneumothorax measuring 1.8 cm from pleural margin was seen on imaging and IR then placed a right pigtail catheter under CT- guidance before sending pt to ED. He has been saturating well in the upper 90' s. Pt denies difficulty breathing or shortness of breath since catheter placement. Pt has some pain at insertion site of catheter he describes as sharp , this pain is also present in his upper arm--he denies numbness or tingling of RUE and demonstrates good range of motion. Pain at catheter site is worse if pt moves around too much. Pt denies wheezing or hemoptysis. He admits to cough, however it is unchanged from what he experiences at baseline. Pt denies chest pressure, palpitations, fever, chills, nausea, vomiting, abdominal pain, diarrhea, constipation. The ED placed a consult to cardiothoracic surgery and pt was admitted to hospitalist service for further care and evaluation. Past Med Surg Social Fam HX - Past Medical History Medical history: asthma, COPD, GERD, other Psychiatric history: no psych history - Past Surgical History Surgical History: no surgical history - Social History Smoking Status: Current every day smoker Smokeless Tobacco Status: No Alcohol use: none Drug use: marijuana Internal Medicine - H&P: Meds Albuterol Sulfate [Ventolin Hfa] 2 puff IH Q6H PRN 09/20/17 [History] Fluticasone/Salmeterol [Advair 250-50 Diskus] 1 puff IH BID 09/20/17 [History] Omeprazole 20 mg PO DAILY 09/20/17 [History] Ibuprofen 800 mg PO TID PRN 10/31/17 [History] 3 Allergy/AdvReac Type Severity Reaction Status Date / Time No Known Allergies Allergy Verified 10/31/17 14:21 All Systems PM: A 10-system review of systems was performed and is negative for pertinent findings except as documented above in the HPI. - Constitutional Vitals: Temp Pulse Resp BP Pulse Ox 98.1 F 74 17 146/97 98 11/13/17 14:54 11/13/17 18:40 11/13/17 18:40 11/13/17 18:40 11/13/17 18:40 General appearance: Present: A&O X 3, pleasant, no acute distress, answers questions appropriately - Head Head exam: Present: atraumatic, normocephalic - Eye Eye exam: Present: EOMI, normal appearance, PERRL - Neck Neck exam general surgery: Present: supple, trachea midline - Respiratory Respiratory exam: Present: decreased breath sounds (bilaterally), wheezes ( scattered). Absent: rales, respiratory distress, rhonchi - Cardiovascular Cardiovascular exam: Present: RRR, +S1, +S2. Absent: diastolic murmur, systolic murmur - GI/Abdominal GI/Abdominal exam: Present: normal bowel sounds, soft, no peritoneal signs. Absent: distended, rigid - Extremities Exam Extremities exam: Present: warm. Absent: pedal edema, tenderness - Back Exam Back exam: Present: normal inspection - Neurological Exam Neurological exam: Present: alert, oriented X3, no focal deficits - Skin Additional comments: Well-healing abdominal incision, linsey no longer present <Yolanda Mondragon - Last Filed: 11/14/17 05:48> Date of Encounter: 11/13/17 Internal Medicine - H&P: HPI History of present illness: Mr. Giraldo is a 57 year old male All Systems PM: A 10-system review of systems was performed and is negative for pertinent findings except as documented above in the HPI. - Constitutional Vitals: Temp Pulse Resp BP Pulse Ox 98.4 F 90 18 137/88 95 11/14/17 04:00 11/14/17 04:00 11/14/17 04:00 11/14/17 04:00 11/14/17 04:00 - Attending Attestation I have seen and examined pt independently. I have discussed with resident physician Dr Bonner regarding the management plan. Agree with the documentation.
[2017-11-14] MEDS ORDERED: *HR* OxyCODONE/APAP 5/325 TABLET PO ONE (01:34)
[2017-11-14] MEDS ORDERED: hydrALAZINE 10 MG TABLET PO PRN (04:38)
[2017-11-14] MEDS: *HR* HYDROcodone/Acet 5/325 mg TABLET PO PRN ×3 (05:54→18:17)
[2017-11-14 06:51] LABS: Basophils # 0.1 K/mcL (0.0-0.2); Basophils % 0.5 %; Eosinophils # 0.5 K/mcL (0.0-0.6); Eosinophils % 4.6 %; Hematocrit 35.5 % (37.5-50.1); Immature Granulocytes % 0.3 % (0-4); Lymphocytes # 3.7 K/mcL (0.6-4.6); Mean Corpuscular Hemoglobin 26.9 pg (28.0-33.3); Mean Corpuscular Volume 86.8 fL (83.0-100.0); Mean Platelet Volume 9.4 fL (9.4-12.4); Monocytes # 0.9 K/mcL (0.0-1.3); Monocytes % 7.5 %; Neutrophils # 6.3 K/mcL (1.6-8.9); Platelet Count 298 K/mcL (140-400); Red Blood Count 4.09 M/mcL (4.19-5.50); Red Cell Distribution Width 15.8 % (11.5-14.5); Segmented Neutrophils % 55.1 %
[2017-11-14] MEDS: Budesonide/Formoterol 80/4.5 MDI IH SCH ×2 (08:35→21:22)
--- NOTE | 2017-11-14 09:07 | Cardiothoracic Consult Note ---
Date of Encounter: 11/14/17 Time of Encounter: 09:05 Assessment and Plan (1) Tobacco abuse Current Visit: No Status: Chronic The assessment and plan as outlined above was discussed with the patient and/or family members who expressed understanding and agreement. All questions were answered. (2) COPD (chronic obstructive pulmonary disease) Current Visit: Yes Status: Chronic We will check a chest x-ray tomorrow morning and continue to follow the chest tube and removed at the appropriate time. Qualifiers: COPD type: emphysema Emphysema type: unspecified Qualified Code(s): J43.9 - Emphysema, unspecified - History of Present Illness History of present illness: Mr. Giraldo is a 57 year old male The patient is a 57-year-old gentleman who was undergoing needle biopsy of a right upper lobe mass in interventional radiology yesterday. He did develop a right pneumothorax and a small bore chest tube was inserted in radiology. We are consulted for chest tube management and eventual removal. Past Med Surg Social Fam HX - Past Medical History Medical history: asthma, COPD, GERD, other Psychiatric history: no psych history - Past Surgical History Surgical History: no surgical history - Social History Smoking Status: Current every day smoker Smokeless Tobacco Status: No Alcohol use: none Drug use: marijuana Medications and Allergies Albuterol Sulfate [Ventolin Hfa] 2 puff IH Q6H PRN 09/20/17 [History] Fluticasone/Salmeterol [Advair 250-50 Diskus] 1 puff IH BID 09/20/17 [History] Omeprazole 20 mg PO DAILY 09/20/17 [History] Ibuprofen 800 mg PO TID PRN 10/31/17 [History] 3 Allergy/AdvReac Type Severity Reaction Status Date / Time No Known Allergies Allergy Verified 10/31/17 14:21 All Systems Review: The remainder of the systems were reviewed and are negative Physical Examination Vital Signs, Last 4 Hours Temp Pulse Resp BP Pulse Ox 11/14/17 08:35 18 95 11/14/17 08:00 97.8 F 82 18 127/88 95 Lungs are clear to percussion and auscultation. Chest tube drainage is minimal and there is no air leak. Chest x-ray done this morning reveals a small apical pneumothorax. Results 11/14/17 06:28 Lab Results, Last 24 hours 11/14/17 06:28 WBC 11.5 H Hgb 11.0 L Hct 35.5 L Plt Count 298 Consult Discharge Plan - Plan Referrals: Gisele Arreaga CNP [Primary Care Provider] - Annette Corral DO [Family Provider] -
[2017-11-14 09:23] LABS: BUN/Creatinine Ratio 14 (6-26); Blood Urea Nitrogen 12 mg/dL (6-20); Calcium 9.2 mg/dL (8.6-10.3); Carbon Dioxide 27 mEq/L (23-29); Chloride 107 mEq/L (98-107); Glucose 101 mg/dL (70-105); Osmolality,Calculated 284 (280-300); Potassium 3.9 mEq/L (3.5-5.1); Sodium 137 mEq/L (136-145); eGFR For Non-African Americans > 60 (> 60)
--- NOTE | 2017-11-14 15:07 | Internal Med Progress Note ---
Date of Encounter: 11/14/17 Time of Encounter: 15:04 - Assessment and plan (1) Pneumothorax, right Current Visit: Yes Status: Acute Assessment and plan: Status post chest tube insertion. Continue current care Currently hemodynamically stable and has no acute respiratory complaints. Cardiothoracic following, recommendations appreciated. Repeat Chest x-ray for tomorrow morning. (2) COPD (chronic obstructive pulmonary disease) Current Visit: Yes Status: Chronic Assessment and plan: Takes Advair and Ventolin at home. Not on home oxygen. - Continue bronchodilator and corticosteroid inhalers Qualifiers: COPD type: emphysema Emphysema type: unspecified Qualified Code(s): J43.9 - Emphysema, unspecified (3) Pulmonary nodules Current Visit: Yes Status: Chronic Assessment and plan: Nodules first seen on 10/15/[address] chest 10/18/17 shows multifocal noncalcified and calcified pulmonary nodules throughout the lungs, predominantly in the upper lobes; largest nodules seen in RUL, measure 2.3 x 2.0 cm and 1.9 x 1.9 cm. Recommendations at the time were for tissue sampling and/or PET/CT imaging to better evaluate nodules for concerns of malignancy. Seen by Dr. Burleson of oncology 10/31/[address]-guided biopsy of a pulmonary nodule, which was done today. Etiology not certain (awaiting path results), but suspicion for malignancy in setting of chronic tobacco abuse. (4) Asthma Current Visit: No Status: Acute Qualifiers: Asthma severity: unspecified severity Asthma persistence: unspecified Asthma complication type: uncomplicated Qualified Code(s): J45.909 - Unspecified asthma, uncomplicated (5) Leukocytosis Current Visit: No Status: Acute Qualifiers: Leukocytosis type: unspecified Qualified Code(s): D72.829 - Elevated white blood cell count, unspecified (6) DVT prophylaxis Current Visit: Yes Status: Acute Assessment and plan: SCDs - Subjective Interval history: No complaints, no acute events. - Constitutional Vitals: Temp Pulse Resp BP Pulse Ox 97.7 F 108 18 129/90 100 11/14/17 11:21 11/14/17 11:21 11/14/17 11:21 11/14/17 11:21 11/14/17 11:21 General appearance: Present: A&O X 3, pleasant, no acute distress, answers questions appropriately Exam: Right chest tube in place - Head Head exam: Present: atraumatic, normocephalic - Eye Eye exam: Present: PERRL, conjuntiva pink, sclera anicteric Pupils: Present: PERRL - Neck Neck exam general surgery: Present: supple, trachea midline. Absent: lymphadenopathy - Respiratory Respiratory exam: Present: decreased breath sounds, CTAB, wheezes (mild). Absent: accessory muscle use, rales, rhonchi - Cardiovascular Cardiovascular exam: Present: RRR, +S1, +S2. Absent: diastolic murmur, gallop, rubs, systolic murmur - GI/Abdominal GI/Abdominal exam: Present: normal bowel sounds, soft, no peritoneal signs. Absent: distended, tenderness - Extremities Exam Extremities exam: Present: warm, radial pulses palpable and symmetrical. Absent : calf tenderness, cyanotic, pedal edema - Neurological Exam Neurological exam: Present: CN II-XII intact, oriented X3, no focal deficits. Absent: pronater drift, facial droop, speech deficit - Skin Skin exam: Present: dry, intact Internal Medicine: Result - Labs CBC & Chem 7: 11/14/17 06:28 11/14/17 06:28 Labs: Short CBC 11/14/17 Range/Units 06:28 WBC 11.5 H (4.3-11.1) K/mcL Hgb 11.0 L (12.9-16.9) g/dL Hct 35.5 L (37.5-50.1) % Plt Count 298 (140-400) K/mcL Neutrophils # 6.3 (1.6-8.9) K/mcL BMP 11/14/17 06:28 Sodium 137 Potassium 3.9 Chloride 107 Carbon Dioxide 27 BUN 12 Creatinine 0.88 Glucose 101 Calcium 9.2 - Impressions Impressions Chest X-Ray 11/14/17 04:00 IMPRESSION: 1. Stable position of right hemithorax pigtail pleural catheter with stable mild-moderate right pneumothorax. 2. Redemonstration of bilateral pulmonary nodules consistent with metastatic disease. 3. Stable mild right lung opacities consistent with atelectasis and post biopsy hemorrhage. D/ / 11/14/2017 08:02:17 Kalpesh Kang MD / [facility] Interpreting Provider: Kalpesh Kang MD Consult Discharge Plan - Plan Referrals: Gisele Arreaga CNP [Primary Care Provider] - Annette Corral DO [Family Provider] -
[2017-11-15] MEDS: *HR* HYDROcodone/Acet 5/325 mg TABLET PO PRN ×4 (01:09→21:58)
[2017-11-15] MEDS: Budesonide/Formoterol 80/4.5 MDI IH SCH ×2 (10:13→19:49)
--- NOTE | 2017-11-15 11:33 | Internal Med Progress Note ---
Date of Encounter: 11/15/17 Time of Encounter: 17:31 - Assessment and plan (1) Pneumothorax, right Current Visit: Yes Status: Acute Assessment and plan: Status post chest tube insertion. Continue current care Currently hemodynamically stable and has no acute respiratory complaints. Cardiothoracic following, recommendations appreciated. (2) COPD (chronic obstructive pulmonary disease) Current Visit: Yes Status: Chronic Assessment and plan: Takes Advair and Ventolin at home. Not on home oxygen. - Continue bronchodilator and corticosteroid inhalers Qualifiers: COPD type: emphysema Emphysema type: unspecified Qualified Code(s): J43.9 - Emphysema, unspecified (3) Pulmonary nodules Current Visit: Yes Status: Chronic Assessment and plan: Nodules first seen on 10/15/[address] chest 10/18/17 shows multifocal noncalcified and calcified pulmonary nodules throughout the lungs, predominantly in the upper lobes; largest nodules seen in RUL, measure 2.3 x 2.0 cm and 1.9 x 1.9 cm. Recommendations at the time were for tissue sampling and/or PET/CT imaging to better evaluate nodules for concerns of malignancy. Seen by Dr. Burleson of oncology 10/31/[address]-guided biopsy of a pulmonary nodule, which was done today. Etiology not certain (awaiting path results), but suspicion for malignancy in setting of chronic tobacco abuse. (4) Asthma Current Visit: No Status: Acute Qualifiers: Asthma severity: unspecified severity Asthma persistence: unspecified Asthma complication type: uncomplicated Qualified Code(s): J45.909 - Unspecified asthma, uncomplicated (5) DVT prophylaxis Current Visit: Yes Status: Acute Assessment and plan: SCDs - Subjective Interval history: No complaints, no acute events. - Constitutional Vitals: Temp Pulse Resp BP Pulse Ox 97.7 F 78 17 122/87 92 11/15/17 10:52 11/15/17 10:52 11/15/17 10:52 11/15/17 10:52 11/15/17 10:52 General appearance: Present: A&O X 3, pleasant, no acute distress, answers questions appropriately Exam: Chest tube in place - Head Head exam: Present: atraumatic, normocephalic - Eye Eye exam: Present: PERRL, conjuntiva pink, sclera anicteric Pupils: Present: PERRL - Neck Neck exam general surgery: Present: supple, trachea midline. Absent: lymphadenopathy - Respiratory Respiratory exam: Present: CTAB. Absent: accessory muscle use, rales, rhonchi, wheezes - Cardiovascular Cardiovascular exam: Present: RRR, +S1, +S2. Absent: diastolic murmur, gallop, rubs, systolic murmur - GI/Abdominal GI/Abdominal exam: Present: normal bowel sounds, soft, no peritoneal signs. Absent: distended, tenderness - Extremities Exam Extremities exam: Present: warm, radial pulses palpable and symmetrical. Absent : calf tenderness, cyanotic, pedal edema - Neurological Exam Neurological exam: Present: CN II-XII intact, oriented X3, no focal deficits. Absent: pronater drift, facial droop, speech deficit - Skin Skin exam: Present: dry, intact Internal Medicine: Result - Labs CBC & Chem 7: 11/14/17 06:28 11/14/17 06:28 - Impressions Impressions Chest X-Ray 11/15/17 00:01 IMPRESSION: Small right apical pneumothorax. Otherwise similar appearing chest. D/ / Neno Slaughter MD / Neno Slaughter MD Interpreting Provider: Neno Slaughter MD - VTE Documentation of Mechanical Device: Intermittent pneumatic compression device Consult Discharge Plan - Plan Referrals: Gisele Arreaga CNP [Primary Care Provider] - Annette Corral DO [Family Provider] -
[2017-11-15] MEDS: *HR* Enoxaparin 40 MG/0.4 ML SYRINGE SQ SCH (15:11)
[2017-11-16] MEDS: *HR* HYDROcodone/Acet 5/325 mg TABLET PO PRN ×4 (03:47→23:31)
[2017-11-16] MEDS: *HR* Enoxaparin 40 MG/0.4 ML SYRINGE SQ SCH (05:48)
--- NOTE | 2017-11-16 07:46 | Cardiothoracic Progress Note ---
Date of Encounter: 11/16/17 Time of Encounter: 07:44 - Assessment and plan (1) Tobacco abuse Current Visit: No Status: Chronic Hopefully, the chest tube can be removed soon. (2) COPD (chronic obstructive pulmonary disease) Current Visit: Yes Status: Chronic We will check a chest x-ray tomorrow morning and continue to follow the chest tube and removed at the appropriate time. Qualifiers: COPD type: emphysema Emphysema type: unspecified Qualified Code(s): J43.9 - Emphysema, unspecified - Subjective Interval history: The patient has no complaints. Vital Signs, Last 4 Hours Temp Pulse Resp BP Pulse Ox 11/16/17 07:33 97.8 F 63 18 132/84 94 11/16/17 04:22 98.6 F 79 17 131/90 92 Oxgyen Flow Rate Oxygen Flow Rate (LPM) 2 Clinical Data, last 8 Hours Output, Urine Amount 550 Output, Urine Amount 190 Weight 11/14/17 11/15/17 11/16/17 23:59 23:59 23:59 Weight 69 kg 67.2 kg 68.4 kg Lungs are clear to percussion and auscultation. The chest tube has minimal drainage and no air leak. It is on waterseal. Chest x-ray reveals a tiny apical pneumothorax. - Labs 11/14/17 06:28 11/14/17 06:28 - VTE Documentation of Mechanical Device: Intermittent pneumatic compression device Consult Discharge Plan - Plan Referrals: Gisele Arreaga CNP [Primary Care Provider] - Annette Corral DO [Family Provider] -
--- NOTE | 2017-11-16 07:57 | Cardiothoracic Progress Note ---
Date of Encounter: 11/15/17 Time of Encounter: 09:00 - Assessment and plan (1) Tobacco abuse Current Visit: No Status: Chronic I took the chest tube off suction. We will check a chest x-ray tomorrow morning. (2) COPD (chronic obstructive pulmonary disease) Current Visit: Yes Status: Chronic We will check a chest x-ray tomorrow morning and continue to follow the chest tube and removed at the appropriate time. Qualifiers: COPD type: emphysema Emphysema type: unspecified Qualified Code(s): J43.9 - Emphysema, unspecified - Subjective Interval history: I did perform a progress note yesterday. However, apparently this was lost. The patient when seen yesterday had no complaints. Vital Signs, Last 4 Hours Temp Pulse Resp BP Pulse Ox 11/16/17 07:33 97.8 F 63 18 132/84 94 11/16/17 04:22 98.6 F 79 17 131/90 92 Oxgyen Flow Rate Oxygen Flow Rate (LPM) 2 Clinical Data, last 8 Hours Output, Urine Amount 550 Output, Urine Amount 190 Weight 11/14/17 11/15/17 11/16/17 23:59 23:59 23:59 Weight 69 kg 67.2 kg 68.4 kg Lungs were clear to percussion and auscultation. His chest tube did not have an air leak. Chest x-ray revealed a apical pneumothorax. - Labs 11/14/17 06:28 11/14/17 06:28 - VTE Documentation of Mechanical Device: Intermittent pneumatic compression device Consult Discharge Plan - Plan Referrals: Gisele Arreaga CNP [Primary Care Provider] - Annette Corral DO [Family Provider] -
[2017-11-16] MEDS: Budesonide/Formoterol 80/4.5 MDI IH SCH ×2 (11:02→19:21)
--- NOTE | 2017-11-16 16:50 | Internal Med Progress Note ---
Date of Encounter: 11/16/17 Time of Encounter: 16:49 - Assessment and plan (1) Pneumothorax, right Current Visit: Yes Status: Acute Assessment and plan: Status post chest tube insertion. Continue current care Currently hemodynamically stable and has no acute respiratory complaints. Cardiothoracic following, recommendations appreciated. (2) COPD (chronic obstructive pulmonary disease) Current Visit: Yes Status: Chronic Assessment and plan: Takes Advair and Ventolin at home. Not on home oxygen. - Continue bronchodilator and corticosteroid inhalers Qualifiers: COPD type: emphysema Emphysema type: unspecified Qualified Code(s): J43.9 - Emphysema, unspecified (3) Pulmonary nodules Current Visit: Yes Status: Chronic Assessment and plan: Nodules first seen on 10/15/[address] chest 10/18/17 shows multifocal noncalcified and calcified pulmonary nodules throughout the lungs, predominantly in the upper lobes; largest nodules seen in RUL, measure 2.3 x 2.0 cm and 1.9 x 1.9 cm. Recommendations at the time were for tissue sampling and/or PET/CT imaging to better evaluate nodules for concerns of malignancy. Seen by Dr. Burleson of oncology 10/31/[address]-guided biopsy of a pulmonary nodule, which was done today. Etiology not certain (awaiting path results), but suspicion for malignancy in setting of chronic tobacco abuse. (4) Asthma Current Visit: No Status: Acute Qualifiers: Asthma severity: unspecified severity Asthma persistence: unspecified Asthma complication type: uncomplicated Qualified Code(s): J45.909 - Unspecified asthma, uncomplicated (5) DVT prophylaxis Current Visit: Yes Status: Acute Assessment and plan: SCDs - Subjective Interval history: No complaints, no acute events. - Constitutional Vitals: Temp Pulse Resp BP Pulse Ox 98.1 F 76 16 138/89 93 11/16/17 15:22 11/16/17 15:22 11/16/17 15:22 11/16/17 15:22 11/16/17 15:22 General appearance: Present: A&O X 3, pleasant, no acute distress, answers questions appropriately Exam: Chest tube in place - Head Head exam: Present: atraumatic, normocephalic - Eye Eye exam: Present: PERRL, conjuntiva pink, sclera anicteric Pupils: Present: PERRL - Neck Neck exam general surgery: Present: supple, trachea midline. Absent: lymphadenopathy - Respiratory Respiratory exam: Present: CTAB. Absent: accessory muscle use, rales, rhonchi, wheezes - Cardiovascular Cardiovascular exam: Present: RRR, +S1, +S2. Absent: diastolic murmur, gallop, rubs, systolic murmur - GI/Abdominal GI/Abdominal exam: Present: normal bowel sounds, soft, no peritoneal signs. Absent: distended, tenderness - Extremities Exam Extremities exam: Present: warm, radial pulses palpable and symmetrical. Absent : calf tenderness, cyanotic, pedal edema - Neurological Exam Neurological exam: Present: CN II-XII intact, oriented X3, no focal deficits. Absent: pronater drift, facial droop, speech deficit - Skin Skin exam: Present: dry, intact Internal Medicine: Result - Labs CBC & Chem 7: 11/14/17 06:28 11/14/17 06:28 - Impressions Impressions Chest X-Ray 11/16/17 06:28 IMPRESSION: Chest tube not substantially changed in position. Trace right apical pneumothorax remains. D/ / Floyd Fatima MD / Floyd Fatima MD Interpreting Provider: Floyd aFtima MD - VTE Documentation of Mechanical Device: Intermittent pneumatic compression device Consult Discharge Plan - Plan Referrals: Gisele Arreaga, MARLEN [Primary Care Provider] - Annette Corral DO [Family Provider] -
[2017-11-17] MEDS: *HR* HYDROcodone/Acet 5/325 mg TABLET PO PRN ×2 (05:38→11:27)
[2017-11-17] MEDS: *HR* Enoxaparin 40 MG/0.4 ML SYRINGE SQ SCH (05:38)
[2017-11-17] MEDS: Budesonide/Formoterol 80/4.5 MDI IH SCH (07:54)
[2017-11-17 11:21] VITALS: BP 146/97
--- NOTE | 2017-11-17 12:03 | Cardiothoracic Progress Note ---
Date of Encounter: 11/17/17 Time of Encounter: 12:00 Discussion with patient/family: chest tube removed. OK to d/c home today. Patient and understand plan. - Subjective Interval history: Patient seen and examined. Without complaint. Had uneventful night. CXR from this am reportedly demonstrates small apical pneumothorax. Chest tube without air leak. Removed tube and bedside. Discussed plan to go home today and follow- up with primary care. Patient reportedly to have PET/CT. Instructed to keep dressing in place for 24 hours and may shower. Vital Signs, Last 4 Hours Temp Pulse Resp BP Pulse Ox 11/17/17 11:19 98.5 F 85 12 146/97 94 11/17/17 09:00 98.5 F 77 14 146/97 95 Oxgyen Flow Rate Oxygen Flow Rate (LPM) 2 Clinical Data, last 8 Hours Output, Chest Tube Drainage 0 Amount [Right Upper Anterior Chest] Output, Chest Tube Drainage 0 Amount [Right Upper Anterior Chest] Output, Urine Amount 300 Output, Urine Amount 0 Output, Urine Amount 0 Weight 11/15/17 11/16/17 11/17/17 23:59 23:59 23:59 Weight 67.2 kg 68.4 kg 68.7 kg - Physical Examination Incision: Other (IR drain removed and dry dressing applied with Tegaderm) - Labs 11/14/17 06:28 11/14/17 06:28 - VTE Documentation of Mechanical Device: Intermittent pneumatic compression device Consult Discharge Plan - Plan Referrals: Gisele Arreaga CNP [Primary Care Provider] - Annette Corral DO [Family Provider] -
--- NOTE | 2017-11-17 13:13 | Discharge Summary ---
Date of Encounter: 11/17/17 Time of Encounter: 13:05 - Discharge Diagnosis (1) Pneumothorax, right Priority: Primary Status: Acute (2) COPD (chronic obstructive pulmonary disease) Priority: Secondary Status: Chronic Qualifiers: COPD type: emphysema Emphysema type: unspecified Qualified Code(s): J43.9 - Emphysema, unspecified (3) Pulmonary nodules Priority: Secondary Status: Chronic (4) Asthma Priority: Secondary Status: Acute Qualifiers: Asthma severity: unspecified severity Asthma persistence: unspecified Asthma complication type: uncomplicated Qualified Code(s): J45.909 - Unspecified asthma, uncomplicated (5) DVT prophylaxis Priority: Secondary Status: Acute Hospital course: Mr. Giraldo is a 57 year old male who presents to the ED with c/o right pneumothorax after interventional radiology performed a CT-guided core biopsy of a right lung mass. Pneumothorax measured 1.8 cm from pleural margin was seen on imaging and IR then placed a right pigtail catheter under CT-guidance before sending pt to ED. He has been saturating well in the upper 90's. Pt denies difficulty breathing or shortness of breath since catheter placement. He denies numbness or tingling of RUE and demonstrates good range of motion. Pain at catheter site is worse if pt moves around too much. Pt denies wheezing or hemoptysis. He admits to cough, however it is unchanged from what he experiences at baseline.The ED placed a consult to cardiothoracic surgery and pt was admitted to hospitalist service for further care and evaluation. Patient was hemodynamically stable. He had no acute episodes of dyspnea. He had serial chest x-rays and Cardiothoracic Surgery team did remove chest tube without issue. Patient tolerated and was discharged home in stable condition. - Time Spent with Patient Total time spent providing and/or coordinating discharge services: - Discharge Medications Prescriptions: HYDROcodone/Acet 5/325 mg [Beeler 5-325 mg] 1 tab PO Q6HR PRN 3 Days #12 tablet PRN Reason: Pain Home Medications: Albuterol Sulfate [Ventolin Hfa] 2 puff IH Q6H PRN 09/20/17 [History] Fluticasone/Salmeterol [Advair 250-50 Diskus] 1 puff IH BID 09/20/17 [History] Omeprazole 20 mg PO DAILY 09/20/17 [History] Ibuprofen 800 mg PO TID PRN 10/31/17 [History] HYDROcodone/Acet 5/325 mg [Beeler 5-325 mg] 1 tab PO Q6HR PRN 3 Days #12 tablet 11/17/17 [Rx] Allergies/Adverse Reactions: 3 Allergy/AdvReac Type Severity Reaction Status Date / Time No Known Allergies Allergy Verified 10/31/17 14:21 Date of admission: 11/13/17 17:48 Primary care physician: Gisele Arreaga Discharging clinician: Ulises Giles - Constitutional Vitals: Temp Pulse Resp BP Pulse Ox 98.5 F 85 12 146/97 94 11/17/17 11:19 11/17/17 11:19 11/17/17 11:19 11/17/17 11:19 11/17/17 11:19 General appearance: Present: A&O X 3, pleasant, no acute distress, answers questions appropriately Exam: Chest tube out, no gross deformities on right thorax region. - Head Head exam: Present: atraumatic, normocephalic - Eye Eye exam: Present: PERRL, conjuntiva pink, sclera anicteric Pupils: Present: PERRL - Neck Neck exam general surgery: Present: supple, trachea midline. Absent: lymphadenopathy - Respiratory Respiratory exam: Present: CTAB. Absent: accessory muscle use, rales, rhonchi, wheezes - Cardiovascular Cardiovascular exam: Present: RRR, +S1, +S2. Absent: diastolic murmur, gallop, rubs, systolic murmur - GI/Abdominal GI/Abdominal exam: Present: normal bowel sounds, soft, no peritoneal signs. Absent: distended, tenderness - Extremities Exam Extremities exam: Present: warm, radial pulses palpable and symmetrical. Absent : calf tenderness, cyanotic, pedal edema - Neurological Exam Neurological exam: Present: CN II-XII intact, oriented X3, no focal deficits. Absent: pronater drift, facial droop, speech deficit - Skin Skin exam: Present: dry, intact - Patient Status Disposition: Home, Self-Care Condition: Good Functional capacity at discharge: independent ambulation Overall status at discharge: patient is progressing back to baseline - Discharge Instructions Follow Up With: Gisele Arreaga, MARLEN [Primary Care Provider] - Annette Corral DO [Family Provider] - - Diet and Activity Activity: increase activity as tolerated Diet: advance to your usual diet - VTE Documentation of Mechanical Device: Intermittent pneumatic compression device
== END 2017-11-17 14:30 | disposition home or self-care (01) | DRG 143 ==
LOC: EMEROO 14:44 → 2NENU 17:48
PROVIDERS: ADMIT Nurse Practitioner Family; ATTEND Student in an Organized Health Care Education/Training Program